=== PATIENT | male | born 1930 | race Hispanic/Latino ===

== ENCOUNTER 2017-06-13 14:19 | Inpatient (IN) | payer MEDICARE, MEDICAID ==
[2017-06-13] MEDS ORDERED: methylPREDNISolone Sod Succ/PF 125 MG/2 ML VIAL ONE (15:30)
[2017-06-13] MEDS ORDERED: Water For Inject, Bacteriostat 30 ML ONE (15:30)
[2017-06-13] MEDS ORDERED: Azithromycin 500 MG in Sodium Chloride 0.9% 250 ML 250 ML IVPB SCH (15:30)
[2017-06-13 16:14] LABS: Mean Corpuscular HGB CONC 31.1 g/dL (32.0-36.0); Mean Corpuscular Hemoglobin 27.4 pg (27.0-31.0); Mean Corpuscular Volume 88.1 fl (80.0-94.0); Mean Platelet Volume 7.7 fL (7.4-10.4); Platelet Count 326 thou/uL (130-400); RBC Distribution Width 15.1 % (11.5-14.5); Red Blood Cell (RBC) Count 2.21 mill/uL (4.70-6.10); White Blood Cell (WBC) Count 10.2 thou/uL (4.8-10.8)
[2017-06-13 16:16] LABS: INR-International Normal Ratio 1.3; Prothrombin Time 16.5 SEC (12.0-14.7)
[2017-06-13 16:33] LABS: #Lymphocytes 0.6 thou/uL (1.20-3.40); #Monocytes 0.6 thou/uL (0.11-0.59); #Neutrophils 8.9 thou/uL (1.40-6.50); %Basophils 0.1 % (0.0-1.0); %Eosinophils 0.1 % (0.0-10.0); %Monocytes 6.3 % (0.0-10.0); %Neutrophils 87.6 % (42.0-75.0); Anisocytosis SLIGHT = 6-15 cells (100X) (0-5/hpf); CKMB 5.2 ng/mL (0-6.6); Elliptocytes SLIGHT = 2-5 cells (100X) (0-1/hpf); MDiff Complete? YES; Ovalocytes SLIGHT = 2-5 cells (100X) (0-1/hpf); PLT Morphology Comment Appears Adequate; Polychromasia SLIGHT = 2-3 cells (100X) (0-2/hpf); Schistocytes SLIGHT = 2-5 cells (100X) (0-1/hpf); Target Cells SLIGHT = 2-5 cells (100X) (0-1/hpf)
[2017-06-13 16:43] LABS: ALT (SGPT) 26 U/L (8-55); AST (SGOT) 28 U/L (5-34); Alkaline Phosphatase 87 U/L (40-150); Anion Gap 21 mmol/L (10-20); BUN (Urea Nitrogen) 52 mg/dL (8.4-25.7); Bilirubin, Total 0.3 mg/dL (0.2-1.2); Calc. Creatinine Clearance 0 mL/min (70-130); Calcium 9.4 mg/dL (7.8-10.44); Carbon Dioxide 10 mmol/L (23-31); Chloride 112 mmol/L (98-107); Estimated GFR-MDRD 26; Glucose 132 mg/dL (83-110); Sodium 136 mmol/L (136-145); Troponin I 0.404 ng/mL (< 0.028)
[2017-06-13 16:44] LABS: Potassium 6.6 mmol/L (3.5-5.1)
--- NOTE | 2017-06-13 16:53 | RAD ---
EXAM: ONE VIEW CHEST 06/13/17 COMPARISON: 12/09/16. HISTORY: Dyspnea. FINDINGS: Increased opacity in the right hemithorax which obscures the right heart border and right hemidiaphra gm. Pleural and parenchymal changes suspected. There are parenchymal changes in the left lung base. T he heart is enlarged. Lungs are hyperinflated. No pneumothorax or osseous abnormality. IMPRESSION: Right greater than left opacities as defined above. Continued surveillance. POS: [facility]
[2017-06-13] MEDS ORDERED: Calcium Gluc 4.6 MEQ/10 ML (100 MG/ML) ONE (17:01)
[2017-06-13 19:12] LABS: Troponin I 0.515 ng/mL (< 0.028)
[2017-06-13] MEDS ORDERED: Ondansetron ODT 4 MG TAB SL PRN (19:12)
[2017-06-13] MEDS ORDERED: Ondansetron HCl/PF 4 MG/2 ML Vial IVP PRN (19:12)
[2017-06-13] MEDS ORDERED: Acetaminophen 325 MG TAB PO PRN (19:12)
[2017-06-13] MEDS ORDERED: Nitroglycerin 0.4 MG TAB (25 Tab Bottle) SL PRN (19:50)
[2017-06-13] MEDS ORDERED: Pantoprazole 40 MG VIAL IVP SCH (20:00)
[2017-06-13] MEDS: Furosemide 20 MG/2 ML VIAL SLOW IVP SCH (20:42)
[2017-06-13] MEDS: hydrALAZINE 25 MG TAB PO SCH (20:43)
[2017-06-13 21:00] LABS: Lactic Acid 3.8 mmol/L (0.5-2.2)
[2017-06-13 21:02] LABS: Anion Gap 18 mmol/L (10-20); BUN (Urea Nitrogen) 52 mg/dL (8.4-25.7); Calc. Creatinine Clearance 23 mL/min (70-130); Calcium 9.4 mg/dL (7.8-10.44); Carbon Dioxide 11 mmol/L (23-31); Chloride 113 mmol/L (98-107); Estimated GFR-MDRD 28; Glucose 161 mg/dL (83-110); Sodium 135 mmol/L (136-145)
[2017-06-13 21:05] LABS: Potassium 6.8 mmol/L (3.5-5.1)
[2017-06-13 21:17] LABS: Troponin I 0.858 ng/mL (< 0.028)
[2017-06-13] MEDS ORDERED: Calcium Chloride 1 GM/10 ML Abboject SYRINGE IVP SCH (21:30)
[2017-06-14] MEDS: Furosemide 20 MG/2 ML VIAL SLOW IVP SCH (01:00)
[2017-06-14 04:29] LABS: Hemoglobin 8.5 g/dL (14.0-18.0)
[2017-06-14 04:45] LABS: Anion Gap 15 mmol/L (10-20); BUN (Urea Nitrogen) 52 mg/dL (8.4-25.7); Calc. Creatinine Clearance 22 mL/min (70-130); Calcium 9.7 mg/dL (7.8-10.44); Carbon Dioxide 14 mmol/L (23-31); Chloride 113 mmol/L (98-107); Estimated GFR-MDRD 26; Glucose 179 mg/dL (83-110); Potassium 6.2 mmol/L (3.5-5.1); Sodium 136 mmol/L (136-145)
[2017-06-14 04:56] LABS: Troponin I 4.288 ng/mL (< 0.028)
--- NOTE | 2017-06-14 06:48 | HP ---
DATE OF ADMISSION: 06/13/2017 REASON/CHIEF COMPLAINT: Chest pain, shortness of breath. HISTORY OF PRESENT ILLNESS: Mr. Russell is an 87-year-old male with past medical history o f hypertension, hyperparathyroidism, bleeding, and also with chronic kidney disease, having shortness of breath, chest pain for the last 2 days. The patient describes the chest pain as pressure like in the retrosternal area, radiates to the left arm and associated with shortness of breath and he says both got worse today and he also has diaphoresis. He also had some cough and wheezing too. His also reported some fluid in both the lower extremities. He did not have nausea or vomiting but comp lains of neck pain. No headache or dizziness, so the patient was brought to the emergency room becau se of worsening symptoms. In the ER, the patient was evaluated and found to be severely anemic and w as also in acute kidney injury with severe hyperkalemia. The patient's troponin was elevated suggest emily of non-ST elevation and Radiology described this as effusion in the right lower lobe and pneumoni a is currently ruled out, so the patient received antibiotics, azithromycin and Rocephin and also rec eived Solu-Medrol and calcium gluconate solution as well and normal saline IV fluid bolus and DuoNebs , so the patient is being admitted to CCU in view of his multiple problems with severe hyperkalemia a s well as NSTEMI. PAST MEDICAL HISTORY: 1. Hypertension. 2. Hyperparathyroidism. 3. Reactive airway disease. 4. Peripheral vascular disease. 5. Bleeding duodenal ulcer. 6. Chronic kidney disease stage 3. 7. Chronic anemia. 8. Abdominal aortic aneurysm, stable. PAST SURGICAL HISTORY: Nothing significant. CURRENT MEDICATIONS: The patient is on simvastatin 40 mg, , hydralazine 25 b.i.d., Protonix 40 mg daily. ALLERGIES: NKDA. FAMILY HISTORY: Nothing of interest. SOCIAL HISTORY: The patient lives with family. He smokes 1 pack a day. No history of alcohol intak e. REVIEW OF SYSTEMS: Cardiovascular: Has chest pain and shortness of breath. Respiratory: Has cough , no fever. Gastrointestinal: No nausea or vomiting. No abdominal pain. Genitourinary: No dysuri a. Central Nervous System: No headache, no dizziness. PHYSICAL EXAMINATION: GENERAL: The patient is alert, awake, and oriented x3. VITAL SIGNS: Temperature 99, pulse 108, respirations 20, and blood pressure 140/60. HEENT: Head is normocephalic and atraumatic. Pupils are equal and reactive to light. Nasopharynx i s pale and dry. Hard and soft palate, no lesions. SKIN: Skin turgor decreased. NECK: Supple. No JVD. LUNGS: Rhonchi present bilaterally. HEART: S1 and S2 regular. ABDOMEN: Soft. No distention, no tenderness. Normal bowel sounds. RECTAL: Reveals no evidence of any heme-positive stool. CENTRAL NERVOUS SYSTEM: No focal deficits. EXTREMITIES: 1+ pitting edema. LABORATORY AND X-RAY FINDINGS: CBC shows WBC 10, hemoglobin 6, hematocrit 19, and platelets 326. Pr othrombin time 16, INR 1.3. Metabolic panel: Sodium 136, potassium 6.6, chloride 112, CO2 of 10, BU N 52, creatinine 2.3, glucose 132. Lactic acid 5.5. Troponin I 0.40. BNP was 605. EKG shows sinus tachycardia with heart rate 114. No acute ST-T wave changes seen. Chest x-ray shows right greater than left lobe opacities, possible pleural effusion and also cannot rule out any parenchymal changes. ASSESSMENT: 1. Chest pain, shortness of breath, possible [id number] elevation myocardial infarction with jayde vated troponin I. 2. Reactive airway disease. 3. Severe hyperkalemia. 4. Severe anemia, normocytic. 5. Acute kidney injury. 6. Hypertension. 7. Right pleural effusion, rule out pneumonia. 8. Chronic kidney disease stage 3. PLAN: 1. Vital signs q.4 hours. 2. Activity: As tolerated. 3. Allergies: NKDA. 4. Troponin I q.6 hours x2. 5. Nitroglycerin p.r.n. 6. Continue home medication. 7. Rocephin 2 grams IV piggyback daily. 8. Zithromax 250 mg IV piggyback daily. 9. Cardiology consult. 10. Transfuse 2 units of packed red blood cells. 11. DuoNebs q.i.d. 12. Solu-Medrol 20 IVP q.6 hours. 13. Pulmonary consult. 14. Echocardiogram.
[2017-06-14] MEDS: cefTRIAXone\\ROCEPHIN 2 GM in Sodium Chloride 0.9% 100 ML IVPB SCH (08:17)
[2017-06-14] MEDS: Pantoprazole 40 MG VIAL IVP SCH (08:17)
[2017-06-14] MEDS: hydrALAZINE 25 MG TAB PO SCH ×2 (08:17→21:36)
[2017-06-14 10:14] LABS: Troponin I 4.665 ng/mL (< 0.028)
--- NOTE | 2017-06-14 10:33 | CT ---
CT CHEST WITHOUT CONTRAST: Date: 06/14/17 HISTORY: Chest pain. Right lung mass versus effusion. COMPARISON: Radiograph from prior day. Radiograph from 12/07/16. FINDINGS: Large layering right-sided pleural effusion and compressive atelectasis in the right lung base. Moder ate size left layering pleural effusion. There is a focal area of nodularity in the parenchyma in the left lower lobe, series 61, image 104, measuring up to 9.0 mm. This is new from the prior examinatio n, slightly increasing in size. There are some scattered central lobular ground-glass opacities in th e upper lobes. Dense calcifications carotid arteries. Hypodensity posterior inferior right lobe of thyroid. Pulmonary trunk mildly dilated at 31 mm. Small volume pericardial fluid. Severe calcifications of the renal artery, celiac trunk, and superior mesenteric artery. Kidneys are atrophic. No thoracic spine compression fracture. There is extensive motion artifact at the level of the posterior right lobe of liver. There appears t o be calcification along the capsule, new. The sternum and manubrium are intact. Visualized portions of the clavicles are intact. IMPRESSION: 1. Large right and moderate size left layering pleural effusions. 2. Size increasing or new left lower lobe 9.0 mm nodule. This is seen on series 3, image 46 and 47. A follow-up CT in 1-2 months is recommended. Malignancy not included. 3. Mild edema. 4. Area of calcification along the right posterior hepatic capsule is new from the comparison examin ation and may represent an old torsed epiploic appendage, calcified. CODE LN. CODE T. POS: [facility]
[2017-06-14] MEDS: Azithromycin 250 MG in Sodium Chloride 0.9% 250 ML 250 ML IVPB SCH (14:08)
--- NOTE | 2017-06-14 14:57 | CON ---
DATE OF CONSULTATION: 06/14/2017 CONSULTING PHYSICIAN: Tian Ford M.D. REASON FOR CONSULTATION: Pleural effusion. HISTORY OF PRESENT ILLNESS: This patient is an 87-year-old male who was previously being seen by Dr. Hankins in our practice back in 11/2016. He came in last night with crushing substernal chest pain that he had been having for 2 days prior to admission. He says he was short of breath last night, but no longer this morning. He denies any right-sided chest pain. He was found to have a non-ST segment elevation CA. He also was severely hyperkalemic. He was given a dose of Kayexalate and x-ray showed what appeared to be a right effusion versus mass. Further evaluation by CT scan is pending. History is obtained from the family, the patient and by reviewing records in the chart. PAST MEDICAL HISTORY: 1. Hypertension. 2. Hyperparathyroidism. 3. Reactive airway disease. 4. Chronic renal insufficiency - one time was on dialysis. 5. Peripheral vascular disease. 6. Duodenal ulcer. 7. Anemia. 8. Abdominal aortic aneurysm. PAST SURGICAL HISTORY: Unremarkable. MEDICATIONS PRIOR TO ADMISSION: Aspirin 81 mg daily, multivitamin 1 daily, tramadol 50 mg daily, hydralazine 25 mg b.i.d., and simvastatin 40 mg daily. SOCIAL HISTORY: He smokes about a pack per day, does not consume alcohol, does not use illicit drugs. Lives at home with his family. FAMILY MEDICAL HISTORY: Noncontributory. ALLERGIES: None. REVIEW OF SYSTEMS: Twelve point review of systems otherwise negative except for the history of present illness. PHYSICAL EXAMINATION: VITAL SIGNS: Temperature 98.2, pulse 104, blood pressure 141/69, O2 sat 100%. GENERAL: He is awake and alert and in no acute distress. HEENT: Pupils tracts are icteric. Oropharynx clear. NECK: No adenopathy, no JVD. LUNGS: He has diminished percussion and diminished breath sounds in the right base, left side is clear. CARDIAC: S1, S2 regular, without murmur. ABDOMEN: Soft, nontender, nondistended. EXTREMITIES: No clubbing, cyanosis, or edema. NEUROMUSCULAR: Fully intact throughout. SKIN: Shows no rashes, bruising or jaundice. LABORATORY DATA AND X-RAY FINDINGS: White blood cell count 10.2, hemoglobin 8.5 , hematocrit 26.0, platelet count 326,000 and that was after 2 units of blood being transfused. INR 1.3. Sodium 136, potassium 6.2, chloride 113, CO2 of 14 , BUN 52, creatinine 2.4, glucose 179, troponin 4.2. X-ray was reviewed by myself in details and findings are as noted in history of present illness. ASSESSMENT: 1. Right effusion versus mass. 2. Non-ST segment elevation myocardial infarction. 3. Severe hyperkalemia. 4. Renal insufficiency. PLAN: 1. The patient is asymptomatic from the effusion versus mass. I will go ahead and get a noncontrasted CT of the chest to better delineate what we are seeing over there. He may need a thoracentesis. 2. Continue the antibiotics temporarily. 3. Recheck potassium this afternoon if I consider giving another dose of Kayexalate. 4. Suggest cardiac consultation as the heart issue seems to be most pressing issue at hand. 70 min. spent on patient at the bedside and or on the patient's floor [facility]
[2017-06-14 15:35] LABS: Potassium 5.5 mmol/L (3.5-5.1)
--- NOTE | 2017-06-14 20:14 | CON ---
DATE OF CONSULTATION: 06/14/2017 INDICATION FOR CONSULTATION: An 87-year-old patient with a history of severe shortness of breath and chest pain and abnormal cardiac enzymes, also abnormal EKG, suspicious for ischemia. HISTORY OF PRESENT ILLNESS: This is a very unfortunate 87-year-old gentleman. He has been complaini ng of shortness of breath for about 6 months. He says it worsened . He says he is unable to do anything from being short of breath and then developed chest discomfort. He has also been found to have severe anemia with a hemoglobin of 6, which after transfusion is now 8.5 and hematocrit is no w 26 and previous was 19.4. He has had a history of chronic kidney disease in the past. I believe yasmine william has had a short term dialysis back in 08/2016. Today, his creatinine is 2.36. His cardiac enzymes are abnormal with a troponin I which is increased from 0.51 to 0.8 to 4.2 to 4.66 with MB of 5.2. Yasmine william is comfortable at this time unless he moves. He also has some mild tachycardia at this time. His EKG originally when he came in showed significant EKG changes compatible with ischemia. Most likely the patient has underlying coronary artery disease. At this time, we will need to correct the anemia and see whether or not he has any GI bleeding. He has been seen by Dr. Amador in the past I believe . Otherwise, we cannot perform any type of invasive procedure and intervention on him until the hemo globin has stabilized and there is no obvious source of bleeding. He also has been found to have a l eft lower lobe nodule of 0.9 mm in diameter. He has been diagnosed also with pneumonia and on this a dmission, he is on antibiotics. He has bilateral pleural effusions. He did have an echocardiogram i n 10/2016, which showed a normal ejection fraction. He has had CT scans which showed abdominal aorti c aneurysm which is infrarenal, which apparently has been really stable. He has significant peripher al vascular disease and has multiple risk factors for having coronary artery disease. He has bilater al carotid bruits and also has decreased pedal and popliteal pulses. I cannot actually palpate pedal pulses, but he has significant peripheral vascular disease and I would not be surprised if he does n ot have underlying significant coronary artery disease. PAST MEDICAL HISTORY: Significant for a left femoral neck fracture and the last was in 2017. He has diverticulosis, peptic ulcer disease, infrarenal abdominal aortic aneurysm. He has hyperparathyroid ism. He has had a history of pneumonia. He has diffuse peripheral vascular disease also affecting t he renal arteries. SOCIAL HISTORY: He is . He continues to smoke. He says he only smokes about a half of cigar ette a day now, has smoked up to a pack a day. FAMILY HISTORY: Noncontributory. ALLERGIES: None. MEDICATIONS: At home include tramadol, hydralazine, simvastatin, and aspirin. At this time, he has been placed on antibiotics for probable pneumonia. He also was taking Lasix and hydralazine. He has been placed on methylprednisolone. He has nitroglycerin as needed, Protonix. ALLERGIES: None. REVIEW OF SYSTEMS: He complains of shortness of breath and chest pain and also constipation. Otherw ise, 12-point review of systems is relatively unremarkable despite being 87 years old. PHYSICAL EXAMINATION: GENERAL: Reveals an elderly gentleman. VITAL SIGNS: Blood pressure is 138/51, heart rate 115 and shows a sinus tachycardia, respiratory rat e 24, O2 saturations 100% on room air at this time. HEENT: Shows the head to be normocephalic and atraumatic. He has bilateral carotid bruits noted. CHEST: Has decreased breath sounds at the bases and otherwise is unremarkable. I do not hear any ra les, rhonchi, or wheezing. CARDIOVASCULAR: Exam reveals a slight tachycardia with a regular rhythm. He has a very soft systoli c murmur in the aortic area, also at the apex, but no significant harsh murmurs were noted. There we re no heaves or thrills. ABDOMEN: Somewhat distended, but no significant tenderness. He has positive bowel sounds. EXTREMITIES: Showed no clubbing or cyanosis. He had mild ankle edema. I cannot palpate pedal or po pliteal pulses. I could palpate the femoral pulse. He also has bilateral femoral bruits. NEUROLOGIC: Appears to be intact. EKG shows sinus tachycardia with ST segment changes compatible with ischemia. IMPRESSION: 1. Severe anemia which has exacerbated underlying probable coronary artery disease with ischemic maria elena nges. Cardiac enzymes were positive for a non-ST segment elevation myocardial infarction. Once the patient's anemia has resolved and he is more stable, he should undergo a cardiac catheterization to e valuate his coronary artery status. First he will need to be evaluated to determine the blood loss. 2. Chronic kidney disease. Also, he needs to understand that should we proceed with cardiac cathete rization, he may develop complete renal failure requiring dialysis. 3. History of hypertension. This appears to be stable at this time. 4. Abdominal aortic aneurysm. This appears to be stable. He denies any pain. He may need to under go a repeat CT scan for further evaluation to follow up on the abdominal aortic aneurysm. 5. History of chronic obstructive pulmonary disease which appears to be relatively stable despite hi s continued smoking. 6. Hyperparathyroidism. We will leave this up to the discretion of the primary care physicians. At this time, his overall health is obviously very poor with multiple medical problems. The worse prob maggi at this time is the anemia of uncertain etiology. He has had a history of peptic ulcer disease a nd gastric ulcers in the past and we will need to follow him very carefully. 7. Pneumonia and bilateral pleural effusions. We will continue to monitor and treat with antibiotic s. He may need further blood transfusions. He is not a candidate for cardiac catheterization with t his significantly low hemoglobin. We would prefer for hemoglobin to be at least 10 and also prefer f or the renal function to have improved. 8. Hyperkalemia. He was hyperkalemic when he was admitted with 6.2. This is now down to 5.5. We will be more than happy to continue to follow the patient with you. Further workup is certainly i ndicated. We would be more than happy to perform these studies once the patient becomes more stable.
--- NOTE | 2017-06-14 21:28 | CON ---
DATE OF CONSULTATION: 06/14/2017 CONSULTING PHYSICIAN: Tian Ford M.D. REASON FOR CONSULTATION: Acute kidney injury. REASON FOR ADMISSION: Chest pain and shortness of breath. HISTORY OF PRESENT ILLNESS: This 87-year-old male with history of hypertension, reactive airway dise ase, CKD, who came to the hospital with shortness of breath and chest pain. Nephrology was consulted for acute kidney injury. The patient was found to have a creatinine of 2.3 and potassium of 6.8. T he patient is currently treated for cardiorenal syndrome. No fever or chills. No chest pain reporte d to me. No shortness of breath. He is feeling better. PAST MEDICAL HISTORY: Positive for hypertension, reactive airway disease, GI bleed, CKD, chronic ane taqueria, abdominal aortic aneurysm. PAST SURGICAL HISTORY: Denies. ALLERGIES: No known drug allergies. HOME MEDICATIONS: Hydralazine, simvastatin, Protonix. FAMILY HISTORY: No history of any kidney disease. SOCIAL HISTORY: Smokes 1 pack per day and no alcohol intake. REVIEW OF SYSTEMS: The following complete review of systems was negative, unless otherwise mentioned in the HPI or below: Constitutional: Weight loss or gain, ability to conduct usual activities. Skin: Rash, itching. Eyes: Double vision, pain. ENT/Mouth: Nose bleeding, neck stiffness, pain, tenderness. Cardiovascular: Palpitations, dyspnea on exertion, orthopnea. Respiratory: Shortness of breath, wheezing, cough, hemoptysis, fever, or night sweats. Gastrointestinal: Poor appetite, abdominal pain, heartburn, nausea, vomiting, constipation, or diarr hea. Genitourinary: Urgency, frequency, dysuria, nocturia. Musculoskeletal: Pain, swelling. Neurologic/Psychiatric: Anxiety, depression. Allergy/Immunologic: Skin rash, bleeding tendency. PHYSICAL EXAMINATION: GENERAL: Elderly male, in no apparent distress. VITAL SIGNS: Temperature 97.9, pulse 109, respiratory rate 18, blood pressure 113/50. HEENT: Atraumatic, normocephalic. Oral mucosa is moist. NECK: Supple, no masses. CARDIOVASCULAR: S1, S2 heard. Rate and rhythm regular. RESPIRATORY: Clear to auscultation. MUSCULOSKELETAL: 1+ edema. DERMATOLOGIC: No skin rash. NEUROLOGIC: Alert and awake. PSYCHIATRIC: Mood and affect normal. LABORATORY DATA: Hemoglobin is 6.0, potassium was 6.8, now is 5.5, creatinine is 2.3. ASSESSMENT AND PLAN: 1. Acute kidney injury, most likely from bleeding and volume depletion. Agree with current manageme nt, avoid nephrotoxins. 2. Hyperkalemia, most likely from bleeding and will limit potassium from the diet. Potassium is get ting better. 3. Acidosis. Continue supportive care. 4. Edema, controlled. 5. Cardiorenal syndrome, slightly elevated troponin. 6. Anemia. Prognosis is guarded. Renal function is stable. Potassium is getting better. Continue close monito ring and avoid nephrotoxins.
[2017-06-15 03:53] LABS: #Lymphocytes 0.4 thou/uL (1.20-3.40); #Monocytes 0.4 thou/uL (0.11-0.59); #Neutrophils 8.8 thou/uL (1.40-6.50); %Eosinophils 0.1 % (0.0-10.0); %Lymphocytes 4.1 % (21.0-51.0); %Monocytes 4.3 % (0.0-10.0); %Neutrophils 91.5 % (42.0-75.0); Hemoglobin 7.9 g/dL (14.0-18.0); Mean Corpuscular HGB CONC 32.7 g/dL (32.0-36.0); Mean Corpuscular Hemoglobin 28.1 pg (27.0-31.0); Mean Platelet Volume 7.8 fL (7.4-10.4); Platelet Count 242 thou/uL (130-400); White Blood Cell (WBC) Count 9.6 thou/uL (4.8-10.8)
[2017-06-15 04:09] LABS: Anion Gap 12 mmol/L (10-20); BUN (Urea Nitrogen) 63 mg/dL (8.4-25.7); Calc. Creatinine Clearance 22 mL/min (70-130); Calcium 9.6 mg/dL (7.8-10.44); Carbon Dioxide 17 mmol/L (23-31); Chloride 115 mmol/L (98-107); Estimated GFR-MDRD 26; Glucose 148 mg/dL (83-110); Potassium 5.1 mmol/L (3.5-5.1); Sodium 139 mmol/L (136-145)
[2017-06-15] MEDS: cefTRIAXone\\ROCEPHIN 2 GM in Sodium Chloride 0.9% 100 ML IVPB SCH (08:28)
[2017-06-15] MEDS: Pantoprazole 40 MG VIAL IVP SCH (08:29)
[2017-06-15] MEDS: hydrALAZINE 25 MG TAB PO SCH ×2 (08:29→20:32)
--- NOTE | 2017-06-15 08:41 | PRG ---
DATE OF SERVICE: 06/15/2017 This morning his sats are 100% on 2 liters, pulse 113, blood pressure 140/73, respirations 24. His ejection fraction is 20-25% on the echocardiogram. He presented with chest pain, but he said he is feeling better, less short of breath. CHEST: Decreased breath sounds bilaterally, right greater than left. CARDIAC: Normal S1-S2. No gallops. LABORATORY: White count 9000, H&H 7 and 24, platelet count 242, creatinine is 2.3, BUN 63, troponin is 4. IMPRESSION: 1. Myocardial infarction. 2. Bilateral pleural effusions, left greater than right. 3. Former smoker. Pleural effusion appears to be relatively asymptomatic at this time. Avoid any thoracentesis. If he gets symptomatically we will tap him, in the meantime, continue card iac care and deescalate antibiotics. He can probably be transferred out of the ICU when okay with Cardiology. I will follow.
--- NOTE | 2017-06-15 10:21 | PRG ---
DATE OF SERVICE: 06/15/2017 SUBJECTIVE: This is an 87-year-old gentleman being seen for acute kidney injury. The patient denies any nausea, vomiting or chest pain. PHYSICAL EXAMINATION: GENERAL: Patient is awake, alert. VITAL SIGNS: Afebrile, pulse 70, breathing at 16, blood pressure 136/70. OBJECTIVE: See above. Awake, alert, in no acute distress. GENERAL APPEARANCE AND MENTAL STATUS: Fair. HEAD/NECK: Normocephalic. Atraumatic. EYES: EOMI. No deformity. EARS: Clear. No ulcers. NOSE: Intact. No lesions. MOUTH: Clear. No discharge. THROAT: Clear. No exudate. LUNGS: Clear. No crackles. CARDIAC: S1, S2. No rub. ABDOMEN: Benign. BS+. GENITALIA/RECTUM: Yee absent. BACK/EXTREMITIES: Edema 0+ Ulcer- NEUROLOGICAL: Alert and motor intact. SKIN: Rash- Bruise- LYMPHATICS: Edema- Ulcer- LABORATORY: Hemoglobin 7.9. Potassium 5.1. ASSESSMENT AND RECOMMENDATIONS: 1. Acute kidney injury with chronic kidney disease, improved. 2. Hypertension, stable. 3. Anemia, stable. 4. Medications based on GFR are appropriate. 5. Metabolic acidosis. Would recommend sodium bicarbonate. 6. Hyperkalemia, resolved.
[2017-06-15 12:01] LABS: Iron Less than 8 ug/dL (65-175); Iron Binding Capacity, Total 423 mcg/dL (261-462)
--- NOTE | 2017-06-15 12:18 | CON ---
DATE OF CONSULTATION: 06/15/2017 CHIEF COMPLAINT: Shortness of breath and chest pain. HISTORY OF PRESENT ILLNESS: Mr. Russell is an 87-year-old man who was admitted on 06/13/2017 with s hortness of breath and chest pain. He was diagnosed with a non-ST elevation [place]. He was found to hav e severe anemia and GI was consulted to evaluate that. [facility] Follow [facility] EGD in 11/2016 showed this to be healed. He has been followed by Dr. Perry draper. Currently, he has no ongoing chest pain, no shortness of breath at rest. However, his hea rt rate increases and he breathes a lot harder when he has to move around in bed. He has no abdomina l pain. He has had no blood in the stool. PAST MEDICAL HISTORY: Hypertension, hyperparathyroidism, chronic kidney disease. He has received di alysis previously, but is not on scheduled dialysis, reactive airway disease, peripheral vascular dis ease, abdominal aortic aneurysm, duodenal ulcer as stated in the history of present illness. PAST SURGICAL HISTORY: Endoscopy in August and November of 2016. FAMILY HISTORY: Negative for GI malignancies. SOCIAL HISTORY: No alcohol or drugs. He has been a pack a day smoker. ALLERGIES: No known drug allergies. OUTPATIENT MEDICATIONS: Include pantoprazole 40 mg daily, simvastatin, hydralazine, aspirin, multipl e vitamin, and tramadol as needed. REVIEW OF SYSTEMS: Negative x10 systems reviewed except as stated in the history of present illness. PHYSICAL EXAMINATION: VITAL SIGNS: Pulse 108, blood pressure 135/63, temperature 97.8. When I had him roll over on the si de he was breathing harder and his pulse went up in the 120s. GENERAL: He is in no acute distress. He is awake and alert. EYES: Eyes have no scleral icterus. OROPHARYNX: Clear, without lesions. NECK: No cervical or supraclavicular lymphadenopathy. LUNGS: Have expiratory wheezes. HEART: Tachycardic, S1, S2. ABDOMEN: Soft, nontender, nondistended. Bowel sounds are present. EXTREMITIES: No lower extremity edema. RECTAL: Reveals light brown stool in the rectal vault. LABORATORY AND X-RAY FINDINGS: He had a hemoglobin of 6.0 on presentation and received 2 units trans fusion, his hemoglobin has improved to 7.9 after that. White blood cell count 9.6, platelets 242. L ast hemoglobin in November was 9.3. INR 1.3. Creatinine 2.37. Troponin 4.6. His bilirubin was 0.3, AST 28, ALT 26, alkaline phosphatase 87 on pr esentation. BNP was 1600, albumin 4.0. IMPRESSION: 1. Severe anemia presenting with a hemoglobin of 6. He has had no overt bleeding recently. He has light brown stool in the rectal vault by rectal exam now. He has had chronic renal disease. His ane taqueria is likely multifactorial. We will check iron studies to evaluate for signs of chronic iron defic iency. He did have a duodenal ulcer last August, which were shown to have healed by November. He has bee n taking a proton pump inhibitor daily. The compliance of this in the past has been questioned. The re are no signs of overt bleeding now. Colonoscopy was offered to the patient by Dr. Amador last Nov and he and his declined. 2. Kth-PD-ibvvrwl elevation myocardial infarction. 3. Tachycardia and shortness of breath when he just moves around in the bed. RECOMMENDATIONS: 1. Continue proton pump inhibitor. 2. Check iron studies. 3. We will continue to follow.
[2017-06-15] MEDS: Azithromycin 250 MG in Sodium Chloride 0.9% 250 ML 250 ML IVPB SCH (15:39)
[2017-06-15] MEDS ORDERED: Aspirin 81 mg Enteric Coated Tablet PO SCH (16:15)
[2017-06-15] MEDS ORDERED: Carvedilol 3.125 MG TAB PO SCH (21:30)
[2017-06-16 05:05] LABS: Anion Gap 13 mmol/L (10-20); BUN (Urea Nitrogen) 71 mg/dL (8.4-25.7); Calc. Creatinine Clearance 26 mL/min (70-130); Calcium 9.3 mg/dL (7.8-10.44); Carbon Dioxide 17 mmol/L (23-31); Chloride 115 mmol/L (98-107); Estimated GFR-MDRD 32; Glucose 145 mg/dL (83-110); Potassium 4.7 mmol/L (3.5-5.1); Sodium 140 mmol/L (136-145)
--- NOTE | 2017-06-16 08:18 | PDOC.CTH ---
<Elizabet Ordoñez - Last Filed: 06/16/17 08:12> Cardiology Progress Note - Subjective The pt seen and examined. No overnight events. No cardiac complaints. The pt reported that he breaths "ok" today - Objective Vital Signs Temp Pulse Resp BP Pulse Ox 06/16/17 07:59 99 23 H 100 06/16/17 04:00 98.7 F 06/16/17 00:00 98.1 F 06/15/17 20:32 120 H 169/69 H Weight 151 lb 14.376 oz 06/15/17 06/16/17 06/17/17 06:59 06:59 06:59 Intake Total 800 1710 Output Total 1325 1150 Balance -525 560 - Physical Examination General/Neuro: alert & oriented x3 Neck: no JVD present Lungs: other: (very coases and diminished at bases) Heart: RRR Abdomen: soft Extremities: other: (1-2+ pitting edema to Lt ankle) - Telemetry Telemetry Rhythm: SR 90s - Labs Result Diagrams: 06/15/17 03:13 06/16/17 03:07 Troponin/CKMB CK-MB (CK-2) 5.2 ng/mL (0-6.6) 06/13/17 15:35 Troponin I 4.665 ng/mL (< 0.028) H* 06/14/17 09:15 - Assessment/Plan 1. NSTEMI - stable with BBlocker; no ASA due to GI bleed; possible Cardiac cath when the pt's condition become stable 2. HTN - stable with current medication; cont. monitor 3. MADY on CKD - slightly improved today; managed by bulbs farmworker 4. Anemia - Hx of duodenal ulcer in the past; cont. monitor; 5. AAA - cont. monitor any symptoms; Possible CT ABD in future for further eval 6. PNA & Bilat Pleural effusion - on Antibiotic IVs; managed by PCP and separating machine operator 7. Hyperlipidemia - will resume statin when the pt's condition become stable 8. PVD - stable; cont. monitor MAR reviewed Review of Systems - Review of Systems Constitutional: reports: no symptoms reported EENTM: reports: no symptoms reported Respiratory: reports: see HPI Cardiac (ROS): reports: no symptoms reported ABD/GI: reports: no symptoms reported : reports: no symptoms reported Musculoskeletal: reports: no symptoms reported <Cynthia Dickerson - Last Filed: 06/16/17 17:31> Cardiology Progress Note - Objective Vital Signs Temp Pulse Resp BP Pulse Ox 06/16/17 15:39 98.3 F 100 20 148/67 H 90 L 06/16/17 14:02 94 20 06/16/17 12:00 96 06/16/17 11:38 97.8 F 100 18 151/72 H 92 L 06/16/17 08:44 99 06/16/17 08:00 97.5 F L 99 19 100 06/16/17 07:59 99 23 H 100 Weight 151 lb 14.376 oz 06/15/17 06/16/17 06/17/17 06:59 06:59 06:59 Intake Total 800 1710 790 Output Total 1325 1150 410 Balance -525 560 380 - Labs Result Diagrams: 06/15/17 03:13 06/16/17 03:07 Troponin/CKMB CK-MB (CK-2) 5.2 ng/mL (0-6.6) 06/13/17 15:35 Troponin I 4.665 ng/mL (< 0.028) H* 06/14/17 09:15 - Assessment/Plan Pt. seen and eval. by me. I agree with the A/P by the BUSINESS SERVICES OFFICER. He may not agree to the cath even if he becomes more stable. hgb. will need to be > 10 and stable . The renal function will also need to be discussed as he could have renal failure from the contrast and dialysis would be nec. We will continue to follow him.
[2017-06-16] MEDS: cefTRIAXone\\ROCEPHIN 2 GM in Sodium Chloride 0.9% 100 ML IVPB SCH (08:44)
[2017-06-16] MEDS: Pantoprazole 40 MG VIAL IVP SCH (08:44)
[2017-06-16] MEDS: Carvedilol 3.125 MG TAB PO SCH ×2 (08:44→21:11)
[2017-06-16] MEDS: hydrALAZINE 25 MG TAB PO SCH ×2 (08:44→21:10)
[2017-06-16] MEDS ORDERED: Diazepam 5 MG TAB PO PRN (09:23)
[2017-06-16] MEDS ORDERED: Thiamine HCl 200 MG/2 ML VIAL IM SCH (09:30)
[2017-06-16] MEDS ORDERED: Diazepam 5 MG TAB PO SCH (09:30)
--- NOTE | 2017-06-16 09:48 | PRG ---
DATE OF SERVICE: 06/16/2017 SUBJECTIVE: This morning, he is eating breakfast, sitting at the bedside in bed, in no distress. OBJECTIVE: VITAL SIGNS: Blood pressure is 163/87, sats are 100% on 2 liters, respiration 20, pulse 99, afebrile . CHEST: Reveals bilateral rhonchi. CARDIAC: Normal S1, S2. No gallops. ABDOMEN: Soft, no masses. LABORATORY DATA: White count is not obtained. BUN and creatinine are elevated at 71 and 2.0. Gram positive cocci and his blood cultures, await final identification. IMPRESSION: Congestive heart failure, pleural effusion, renal failure, chronic obstructive pulmonary disease. PLAN: Continue neb treatments, supportive care. He can be transferred out of the ICU. Consider thoracentesis if effusion looks larger.
--- NOTE | 2017-06-16 11:08 | PRG ---
DATE OF SERVICE: 06/16/2017 SUBJECTIVE: This is an 87-year-old gentleman being seen for acute kidney injury. The patient denies any nausea, vomiting or chest pain. PHYSICAL EXAMINATION: GENERAL: Patient is awake, alert. VITAL SIGNS: Afebrile, pulse 100, breathing at 16, blood pressure 160/82. HEAD/NECK: Normocephalic. Atraumatic. EYES: EOMI. No deformity. EARS: Clear. No ulcers. NOSE: Intact. No lesions. MOUTH: Clear. No discharge. THROAT: Clear. No exudate. LUNGS: Clear. No crackles. CARDIAC: S1, S2. No rub. ABDOMEN: Benign. BS+. GENITALIA/RECTUM: Yee absent. BACK/EXTREMITIES: Edema 0+ Ulcer- NEUROLOGICAL: Alert and motor intact. SKIN: Rash- Bruise- LYMPHATICS: Edema- Ulcer- LABORATORY DATA: Show hemoglobin 7.9, potassium is 4.2. ASSESSMENT AND RECOMMENDATIONS: 1. Hyperkalemia, improved. 2. Metabolic acidosis. Continue sodium bicarbonate 3. Hypertension, stable. 4. Acute kidney injury, stable. 5. Chronic kidney disease, no indication for dialysis. Patient with chronic kidney disease stage 3.
[2017-06-16] MEDS: Azithromycin 250 MG in Sodium Chloride 0.9% 250 ML 250 ML IVPB SCH (15:33)
--- NOTE | 2017-06-17 02:06 | PRG ---
DATE OF SERVICE: 06/16/2017 SUBJECTIVE: Mr. Schultz is without complaints except for he gets very short of breath with any move ment at all. In talking with the nurses, his oxygen saturation is up to 93 earlier today. They did put him on 2 liters of oxygen, came up to 90-91 and they took it off and he stayed right around 90. OBJECTIVE: VITAL SIGNS: Temperature is 98.3, pulse is 100, blood pressure 148/76. LUNGS: Decreased breath sounds at bases bilaterally with no breath sounds left lower half lung. He gets short of breath just trying to get him to sit up. HEART: Regular rhythm. ABDOMEN: Soft and nontender. IMAGING: CT scan of the chest from 06/14/2017 showed a large right and moderate left-sided effusion. He has a 9 mm nodule in the left lower lung, which is new compared to previous imaging 11/2012. Ca lcification in the right posterior hepatic cast was new from the previous examination. LABORATORY STUDIES: None today, hemoglobin was 7.8 yesterday. Chemistry revealed a BUN of 71 today and a creatinine of 2.01, 63 and 2.37 yesterday, 52 and 2.36 on 06/14/2017. Last hemoglobin at this hospital was 9.3 on 12/09/2016. ASSESSMENT: 1. Severe anemia, microcytic with iron less than 8 on presentation, a ferritin of 13 and received 2 units of blood on 06/13/2017. He has had 2 EGDs last year when he had an ulcer and then a followup E GD for documentation of healing of that ulcer. Family refused colonoscopy at that time for screening purposes. 2. Heart failure with ejection fraction around 30%. 3. Two large pleural effusions, 1 on the left and 1 on the right with significant respiratory embarr assment. He has distinct shortness of breath with any movement. With movement in the room, he dropp ed his pulse ox to 83%, required supplemental O2. RECOMMENDATIONS: I will probably transfuse him with another unit of blood if his hemoglobin truly is staying between 7 and 8 and try to diurese him aggressively to see if we can get his respiratory sta tus better. At this current juncture, he is not a candidate for sedation and endoscopy. He is a too high risk. He has no signs of active hemorrhage as he had a brown stool on rectal exam yesterday. I agree that ideally a colonoscopy would be indicated to assess the reason for this patient's iron-de ficiency anemia, but again, I think he is going to need to have an improvement in his cardiopulmonary status before we can do that. If he shows signs of acute hemorrhage, he would have to be intubated for any type of intervention at this time and in light of his recent non-ST elevation OR, I will work on improving his cardiovascular status before any type of intervention.
[2017-06-17] MEDS ORDERED: Diazepam 5 MG TAB PO PRN (04:00)
[2017-06-17 06:08] LABS: #Lymphocytes 0.7 thou/uL (1.20-3.40); #Monocytes 0.5 thou/uL (0.11-0.59); #Neutrophils 9.3 thou/uL (1.40-6.50); %Eosinophils 0.1 % (0.0-10.0); %Lymphocytes 6.9 % (21.0-51.0); %Monocytes 4.6 % (0.0-10.0); %Neutrophils 88.5 % (42.0-75.0); Hemoglobin 8.4 g/dL (14.0-18.0); Mean Corpuscular HGB CONC 31.7 g/dL (32.0-36.0); Mean Corpuscular Hemoglobin 27.8 pg (27.0-31.0); Mean Corpuscular Volume 87.7 fl (80.0-94.0); Platelet Count 237 thou/uL (130-400); RBC Distribution Width 14.5 % (11.5-14.5); Red Blood Cell (RBC) Count 3.01 mill/uL (4.70-6.10); White Blood Cell (WBC) Count 10.5 thou/uL (4.8-10.8)
[2017-06-17 06:14] LABS: Anion Gap 13 mmol/L (10-20); BUN (Urea Nitrogen) 73 mg/dL (8.4-25.7); Calc. Creatinine Clearance 27 mL/min (70-130); Calcium 9.4 mg/dL (7.8-10.44); Carbon Dioxide 16 mmol/L (23-31); Chloride 116 mmol/L (98-107); Estimated GFR-MDRD 34; Glucose 144 mg/dL (83-110); Potassium 5.1 mmol/L (3.5-5.1); Sodium 140 mmol/L (136-145)
--- NOTE | 2017-06-17 07:36 | RAD ---
CHEST ONE VIEW: History: CHF. Follow up. Comparison: 06-13-17 FINDINGS: Cardiac silhouette remains magnified, enlarged and now more obscured by increasing bilateral pleural fluid, right greater than left. Pulmonary vasculature is more engorged. Mediastinum remains midline. No evidence of pneumothorax. lunchroom monitor leads overlie the chest. IMPRESSION: Worsening pulmonary edema and bilateral pleural fluid, right greater than left. POS: [facility]
--- NOTE | 2017-06-17 08:05 | PDOC.CTH ---
<Elizabet Ordoñez - Last Filed: 06/17/17 08:06> Cardiology Progress Note - Subjective The pt seen and examined. No overnight events. No cardiac complaints. He is on 2LNC with no distress. He could finish his breakfast any difficulties, per the pt. - Objective Vital Signs Temp Pulse Resp BP BP Pulse Ox 06/17/17 07:10 97.7 F 94 18 171/78 H 97 06/17/17 04:55 97.8 F 94 22 H 163/91 H 98 06/16/17 21:10 101 H 161/76 H Weight 166 lb 14.4 oz 06/16/17 06/17/17 06/18/17 06:59 06:59 06:59 Intake Total 1710 1935 Output Total 1150 1260 Balance 560 675 - Physical Examination General/Neuro: alert & oriented x3 Neck: no JVD present Lungs: other: (exp. wheezing, very coarses, diminished at bases) Heart: RRR Abdomen: soft Extremities: other: (No edema) - Telemetry Telemetry Rhythm: SR 90s - Labs Result Diagrams: 06/17/17 04:23 06/17/17 04:23 Troponin/CKMB CK-MB (CK-2) 5.2 ng/mL (0-6.6) 06/13/17 15:35 Troponin I 4.665 ng/mL (< 0.028) H* 06/14/17 09:15 - Assessment/Plan 1. NSTEMI - stable with BBlocker; no ASA due to possible GI bleed; possible Cardiac cath when the pt's condition become stable with Hgb > 10 and good renal function. 2. HTN - Increase Coreg from 3.125mg to 6.25mg BID; cont. monitor 3. MADY on CKD - slightly improved today than yesterday; managed by special education professor 4. Anemia - Hx of duodenal ulcer in the past; cont. monitor; 5. AAA - cont. monitor any symptoms; Possible CT ABD in future for further eval 6. PNA & Bilat Pleural effusion - on Antibiotic IVs; managed by PCP and interface control officer 7. Hyperlipidemia - will resume Zocor 40mg from tonight 8. PVD - stable; cont. monitor MAR reviewed Review of Systems - Review of Systems Constitutional: reports: no symptoms reported EENTM: reports: no symptoms reported Respiratory: reports: see HPI Cardiac (ROS): reports: no symptoms reported ABD/GI: reports: no symptoms reported : reports: no symptoms reported Musculoskeletal: reports: no symptoms reported <Cynthia Dickerson - Last Filed: 06/17/17 18:53> Cardiology Progress Note - Objective Vital Signs Temp Pulse Pulse Pulse Pulse Resp BP 06/17/17 18:44 98 F 88 16 06/17/17 18:22 89 16 06/17/17 17:34 155/70 H 06/17/17 15:20 97.6 F 87 18 06/17/17 15:03 90 16 06/17/17 11:22 95 18 06/17/17 11:10 97.8 F 98 18 06/17/17 10:05 90 105 H 06/17/17 09:28 89 171/78 H 06/17/17 09:27 171/78 H 06/17/17 08:07 06/17/17 08:05 89 16 06/17/17 08:00 97.7 F 89 16 06/17/17 07:10 97.7 F 94 18 BP BP BP BP Pulse Ox Pulse Ox Pulse Ox 06/17/17 18:44 144/63 H 06/17/17 18:22 93 L 06/17/17 17:34 06/17/17 15:20 155/70 H 95 06/17/17 15:03 93 L 06/17/17 11:22 92 L 06/17/17 11:10 174/81 H 93 L 06/17/17 10:05 158/76 H 176/89 H 95 91 L 06/17/17 09:28 06/17/17 09:27 06/17/17 08:07 99 06/17/17 08:05 99 06/17/17 08:00 06/17/17 07:10 171/78 H 97 Weight 166 lb 14.4 oz 06/16/17 06/17/17 06/18/17 06:59 06:59 06:59 Intake Total 1710 1935 1400 Output Total 1150 1260 350 Balance 328 988 9942 - Labs Result Diagrams: 06/17/17 04:23 06/17/17 04:23 Troponin/CKMB CK-MB (CK-2) 5.2 ng/mL (0-6.6) 06/13/17 15:35 Troponin I 4.665 ng/mL (< 0.028) H* 06/14/17 09:15 - Assessment/Plan Pt. seen and eval. by me. I agree with the A/P by the TRIAL MANAGER. Overall he looks a little better. When stable I would suggest a cardiac cath. he will likely need GI endoscopy when more stable.
[2017-06-17] MEDS ORDERED: Magnesium Oxide 400 MG TAB PO SCH (09:00)
[2017-06-17] MEDS ORDERED: Multivitamin W/ Minerals 1 TAB PO SCH (09:00)
[2017-06-17] MEDS ORDERED: Folic Acid 1 MG TAB PO SCH (09:00)
[2017-06-17] MEDS ORDERED: Carvedilol 6.25 MG TAB PO SCH (09:00)
[2017-06-17] MEDS: Carvedilol 6.25 MG TAB PO SCH ×2 (09:27→17:34)
[2017-06-17] MEDS: cefTRIAXone\\ROCEPHIN 2 GM in Sodium Chloride 0.9% 100 ML IVPB SCH (09:27)
[2017-06-17] MEDS: Pantoprazole 40 MG VIAL IVP SCH (09:28)
[2017-06-17] MEDS: hydrALAZINE 25 MG TAB PO SCH ×2 (09:28→20:50)
--- NOTE | 2017-06-17 09:43 | PQF ---
CLINICAL DOCUMENTATION IMPROVEMENT CLARIFICATION FORM: ICD-10 Updated PLEASE DO AN ADDENDUM TO THE PROGRESS NOTE WITH ANY DOCUMENTATION UPDATES OR ADDITIONS AND CARRY THROUGH TO DC SUMMARY. THANK YOU. DATE: 06/17 ATTN: DR. Kip JEWELL Please exercise your independent, professional judgment in responding to the clarification form. Clinical indicators are provided on the bottom of this form for your review. Please check appropriate box(s): [ ] Pneumonia secondary to (specify organism / underlying disease) [ ] Simple Pneumonia (community acquired - nosocomial) [ ] Bronchopneumonia [ ] Pneumonia of unknown etiology [ ] Other diagnosis [ ] Unable to determine [ y ] PNEUMONIA RULED/OUT [ ] PNEUMONIA RESOLVED For continuity of documentation, please document condition throughout progress notes and discharge summary. Thank You. CLINICAL INDICATORS - SIGNS / SYMPTOMS / LABS ER PHYSICIAN DIAGNOSIS DOCUMENTATION 06/13: PNEUMONIA PHYSICIAN H&P DOCUMENTATION 06/13: ASSESSMENT: 7. R PLEURAL EFFUSION, R/O PNEUMONIA CARDIOLOGY CONSULT DOCUMENTATION 06/14: ASSESSMENT: 7. PNEUMONIA & B PLEURAL EFFUSION RISK FACTORS: CURRENT SMOKER COPD, REACTIVE AIRWAY DISEASE SHORTNESS OF BREATH TREATMENTS: IV ANTIBIOTICS (ROCEPHIN & AZITHROMYCIN 06/13 - PRESENT) PULMONOLOGY CONSULT SUPPLEMENTAL 02(06/13 - PRESENT) DUONEBS (06/13 - PRESENT) THANK YOU! Hanh (This form is maintained as a part of the permanent medical record) 2014 [employer]. All Rights Reserved Hanh Bains RN, BSN [email or web address] Office: [phone] [facility]
--- NOTE | 2017-06-17 09:58 | PQF ---
CLINICAL DOCUMENTATION IMPROVEMENT CLARIFICATION FORM: ICD-10 Updated PLEASE DO AN ADDENDUM TO THE PROGRESS NOTE WITH ANY DOCUMENTATION UPDATES OR ADDITIONS AND CARRY THROUGH TO DC SUMMARY. THANK YOU. DATE: 06/17 ATTN: DR. Kip JEWELL Please exercise your independent, professional judgment in responding to the clarification form. Clinical indicators are provided on the bottom of this form for your review. Please check appropriate box(s): [ ] Sepsis due to: (PNA, UTI, gangrenous gall bladder, etc.) [ ] Severe sepsis with acute organ dysfunction of: (Examples: respiratory failure, encephalopathy, acute kidney failure, other) [ ] Localized infection without sepsis [ y] Other diagnosis ____acute PA and anemia [ ] Unable to determine For continuity of documentation, please document condition throughout progress notes and discharge summary. Thank You. CLINICAL INDICATORS - SIGNS / SYMPTOMS / LABS ER PHYSICIAN DOCUMENTATION 06/13: DOCTOR NOTES: EKG W/CONCERNING GLOBAL ISCHEMIC CHANGES, TROP ELEVATED & CONCERNING FOR SUPPLY DEMAND ISCHEMIA. ...I DISCUSSED WITH CARDIOLOGY & CONCERN FOR SEPTIC PROCESS. ...RECOMMENDED CONTINUED RESUSCITATION FOR LIKELY PRIMARY SEPTIC PROCESS. CXR W/LIKELY RLL PNEUMONIA, LACTATE OF 5.5, LABS ALSO NOTABLE FOR ACUTE KIDNEY INJURY... GIVEN PT LIKELY WITH SEPTIC SHOCK, SYMPTOMATIC ANEMIA, PNEUMOSEPSIS. ER PHYSICIAN DIAGNOSES 06/13: NSTEMI; ACUTE ANEMIA, MADY, HYPERKALEMIA, PNEUMONIA, SEPSIS LACTIC ACID: 5.5 BUN/CR: 52/2.35 RR: 24-36 HR: 110- 121 BLOOD CULTURE 06/13: 1 OF 2 POSITIVE FOR GRAM POSITIVE COCCI RISK FACTORS: PNEUMONIA POSITIVE BLOOD CULTURE ADVANCED AGE (87) ACUTE KIDNEY INJURY TREATMENTS: CCU MONITORING ON ADMISSION (06/13) IV ANTIBIOTICS (ROCEPHIN & AZITHROMYCIN 06/13 - PRESENT) 1L NS IN ER (06/13) SERIAL LABS NEPHROLOGY CONSULT THANK YOU! Hanh (This form is maintained as a part of the permanent medical record) 2014 [employer] All Rights Reserved Hanh Bains RN, BSN [email or web address] Office: [phone] [facility]ENTER[facility]
--- NOTE | 2017-06-17 10:13 | PQF ---
CLINICAL DOCUMENTATION IMPROVEMENT CLARIFICATION FORM: ICD-10 Updated PLEASE DO AN ADDENDUM TO THE PROGRESS NOTE WITH ANY DOCUMENTATION UPDATES OR ADDITIONS AND CARRY THROUGH TO DC SUMMARY. THANK YOU. DATE: 06/17 ATTN: DR. Kip JEWELL Please exercise your independent, professional judgment in responding to the clarification form. Clinical indicators are provided on the bottom of this form for your review. Please check appropriate box(s): HEART FAILURE: A. TYPE: [ ] Systolic / HFrEF [ ] Diastolic / HFpEF [ y ] Combined Systolic / Diastolic B.ACUITY [ ] Acute [ ] Acute on Chronic [ ] Chronic C.WITH (if appropriate) [ ] Hypertensive Heart Disease [ ] Hypertensive Heart and Kidney Disease [ ] Other diagnosis [ ] Unable to determine In addition, please specify: Present on Admission (POA): [ ] Yes [ ] No [ ] Unable to determine For continuity of documentation, please document condition throughout progress notes and discharge summary. Thank You. CLINICAL INDICATORS - SIGNS / SYMPTOMS / LABS PHYSICIAN PN DATED 06/14: ASSESSMENT: DIASTOLIC DYSFUNCTION PHYSICIAN PN DATED 06/16: ASSESSMENT: PLEURAL EFFUSION R > L; CHF WITH DECREASED LVF CXR 06/17: IMPRESSION: WORSENING PULMONARY EDEMA & B PLEURAL FLUID, RIGHT GREATER THAN LEFT ECHO 06/13: EF: 20-25%; L VENTRICULAR SIZE MILDLY INCREASED; L ATRIUM MODERATELY DILATED; MILDLY ENLARGED R ATRIUM SIZE RISKS: NSTEMI SMOKES CIGARETTES CKD 4 HTN COPD TREATMENTS: CARDIOLOGY CONSULT (06/14) PO COREG (06/15- PRESENT) SUPPLEMENTAL 02 (2L, 06/13 - PRESENT) ECHO (06/13) THANK YOU! Hanh (This form is maintained as a part of the permanent medical record) 2014 [employer]. All Rights Reserved Hanh Bains RN, BSN [email or web address] Office: [phone] [facility]
--- NOTE | 2017-06-17 11:49 | PRG ---
DATE OF SERVICE: 06/17/2017 SUBJECTIVE: This morning, he is better, less short of breath. X-ray shows a large pleural effusion. I offered him to do a thoracentesis. He declines. OBJECTIVE: VITAL SIGNS: Sats are 98% on 2 liters, blood pressure 170/87, respirations 18, pulse 80. CHEST: Decreased breath sounds in the right lung. Left lung is unremarkable. CARDIAC: Normal S1, S2. No gallops. ABDOMEN: Soft. No masses. LABORATORY DATA: White count 10,000, H&H is 8 and 26, platelet count is normal. Creatinine is 1.89, BUN 73. IMPRESSION: 1. Respiratory failure, right pleural effusion. 2. Myocardial infarction. 3. Chronic obstructive pulmonary disease. 4. Congestive heart failure. 5. Renal failure. PLAN: I would at this stage, deescalate his antibiotics. If family agrees, we will do thoracentesis on him tomorrow. We will continue supportive care, continue cardiac care. We will follow.
--- NOTE | 2017-06-17 12:32 | PRG ---
DATE OF SERVICE: 06/17/2017 SUBJECTIVE: This is an 87-year-old gentleman being seen for acute kidney injury. The patient denies any nausea, vomiting or chest pain. PHYSICAL EXAMINATION: GENERAL: Patient is awake, alert. VITAL SIGNS: Afebrile, pulse 89, breathing at 16, blood pressure 171/78. GENERAL APPEARANCE AND MENTAL STATUS: Fair. HEAD/NECK: Normocephalic, atraumatic. EYES: EOMI. No deformity. EARS: Clear. No ulcers. NOSE: Intact. No lesions. MOUTH: Clear. No discharge. THROAT: Clear. No exudate. LUNGS: Clear. No crackles. CARDIAC: S1, S2. No rub. ABDOMEN: Benign. BS+. GENITALIA/RECTUM: Yee absent. BACK/EXTREMITIES: Edema 0+ Ulcer-. NEUROLOGICAL: Alert and motor intact. SKIN: Rash- Bruise- LYMPHATICS: Edema- Ulcer-. LABORATORY DATA: Show hemoglobin 8.4, potassium 5.1. ASSESSMENT AND RECOMMENDATIONS: 1. Stage 3 chronic kidney disease, stable. 2. Hypertension, stable. 3. Anemia, stable. 4. Hyperkalemia, stable. 5. Metabolic acidosis. Start the patient on sodium bicarbonate.
[2017-06-17] MEDS: Sodium Bicarbonate Tab 325 MG TAB PO SCH ×2 (15:15→20:50)
--- NOTE | 2017-06-17 15:32 | RAD ---
CHEST ONE VIEW 06/17/17 HISTORY: CHF. Followup. Thoracentesis. COMPARISON: Earlier exam on the same date. FINDINGS: Right pleural fluid has decreased significantly since the previous exam. No evidence of pneumothorax. Cardiomegaly and pulmonary congestion are otherwise stable. IMPRESSION: Interval thoracentesis. No evidence of complication. POS: [facility]
[2017-06-17 15:33] LABS: Fluid, Triglycerides Less than 11 mg/dL (Not Available); Pleural Fluid, Amylase Less than 30 U/L (Not Available); Pleural Fluid, Glucose 139 mg/dL; Pleural Fluid, LDH 59 U/L (Not Available); Pleural Fluid, Protein 1.6 g/dL
[2017-06-17 16:51] LABS: BF Color Yellow; Body Fluid Source THORACENTESIS FLD; Clarity Clear (Clear); Tube # EDTA
[2017-06-17 16:52] LABS: BF RBC Count - Manual 0 /cumm; BF WBC/Nonhematics Ct. - Manua 1 /cumm
[2017-06-17] MEDS ORDERED: Furosemide 20 MG/2 ML VIAL SLOW IVP SCH (17:30)
--- NOTE | 2017-06-17 18:52 | OP ---
PROCEDURE: Thoracentesis. PROCEDURE IN DETAIL: After informed consent from the patient, the right posterior thorax was cleaned with chlorhexidine. 1% Xylocaine was infiltrated into the right ninth intercostal space in the mids capular line, and initially about 20 mL of relatively pale yellow fluid was removed. Using an 8 Bengali catheter, a total of additional 1400 mL was removed without any difficulty. Patien t tolerated the procedure well. X-ray pending. Pleural effusion appears to be a transudate. It mike l be sent for appropriate studies including Gram stain and C&S.
[2017-06-17] MEDS: Atorvastatin Calcium 20 MG TAB PO SCH (20:50)
[2017-06-17] MEDS ORDERED: Simvastatin 40 MG TAB PO SCH (21:00)
[2017-06-17 23:52] LABS: Hemoglobin 9.8 g/dL (14.0-18.0)
[2017-06-18 06:31] LABS: Anion Gap 14 mmol/L (10-20); BUN (Urea Nitrogen) 80 mg/dL (8.4-25.7); Calc. Creatinine Clearance 29 mL/min (70-130); Calcium 9.4 mg/dL (7.8-10.44); Carbon Dioxide 17 mmol/L (23-31); Chloride 113 mmol/L (98-107); Estimated GFR-MDRD 33; Glucose 142 mg/dL (83-110); Potassium 5.2 mmol/L (3.5-5.1); Sodium 139 mmol/L (136-145)
[2017-06-18] MEDS: Sodium Bicarbonate Tab 325 MG TAB PO SCH ×3 (08:30→20:47)
[2017-06-18] MEDS: Pantoprazole 40 MG VIAL IVP SCH (08:31)
[2017-06-18] MEDS: hydrALAZINE 25 MG TAB PO SCH ×2 (08:31→20:46)
[2017-06-18] MEDS: Carvedilol 6.25 MG TAB PO SCH ×2 (08:31→16:00)
--- NOTE | 2017-06-18 08:58 | PDOC.CTH ---
<Elizabet Ordoñez - Last Filed: 06/18/17 08:54> Cardiology Progress Note - Subjective The pt seen and examined. No overnight events. No cardiac complaints. After conversation with the pt about his further tx plan, he did not refuse and would like to discuss with doctors for further information. - Objective Vital Signs Temp Pulse Pulse Resp BP BP BP 06/18/17 08:31 82 154/67 H 06/18/17 07:19 97.7 F 82 16 154/85 H 06/18/17 07:18 82 16 06/18/17 05:01 06/18/17 04:14 97.3 F L 84 20 160/91 H 06/18/17 00:29 97.6 F 86 18 156/84 H 06/17/17 22:05 97.8 F 88 18 161/73 H Pulse Ox 06/18/17 08:31 06/18/17 07:19 98 06/18/17 07:18 98 06/18/17 05:01 95 06/18/17 04:14 95 06/18/17 00:29 95 06/17/17 22:05 94 L Weight 166 lb 14.4 oz 06/17/17 06/18/17 06/19/17 06:59 06:59 06:59 Intake Total 1935 2370 Output Total 1260 1250 Balance 675 1120 - Physical Examination General/Neuro: alert & oriented x3 Neck: no JVD present Lungs: CTA (diminished at bases) Heart: RRR Abdomen: soft Extremities: other: (No edema) - Telemetry Telemetry Rhythm: SR 80s - Labs Result Diagrams: 06/17/17 23:33 06/18/17 04:27 Troponin/CKMB CK-MB (CK-2) 5.2 ng/mL (0-6.6) 06/13/17 15:35 Troponin I 4.665 ng/mL (< 0.028) H* 06/14/17 09:15 - Assessment/Plan 1. NSTEMI - stable with BBlocker; no ASA due to possible GI bleed; possible Cardiac cath when the pt's condition become stable with Hgb > 10 and good renal function. 2. HTN - Stable with Coreg 6.25mg BID; cont. monitor 3. MADY on CKD - slightly worsened today than yesterday; managed by taxi servicer 4. Anemia - Hgb 9.4 today after 1PRBC tx yesterday; Hx of duodenal ulcer in the past; cont. monitor; 5. AAA - cont. monitor any symptoms; Possible CT ABD in future for further eval 6. PNA & Bilat Pleural effusion - Thoracentesis with 1400ml out on 06/17/17; on Antibiotic IVs; managed by PCP and musician instrumental 7. Hyperlipidemia - On Zocor 40mg 8. PVD - stable; cont. monitor MAR reviewed Review of Systems - Review of Systems Constitutional: reports: no symptoms reported EENTM: reports: no symptoms reported Respiratory: reports: no symptoms reported Cardiac (ROS): reports: no symptoms reported ABD/GI: reports: no symptoms reported : reports: no symptoms reported Musculoskeletal: reports: no symptoms reported <Cynthia Dickerson - Last Filed: 06/18/17 17:19> Cardiology Progress Note - Objective Vital Signs Temp Pulse Resp BP BP Pulse Ox 06/18/17 16:00 154/67 H 06/18/17 14:32 83 16 98 06/18/17 11:23 98.5 F 83 20 140/71 97 06/18/17 10:53 79 16 95 06/18/17 08:31 82 154/67 H 06/18/17 08:00 97.7 F 82 18 06/18/17 07:19 97.7 F 82 16 154/85 H 98 06/18/17 07:18 82 16 98 Weight 166 lb 14.4 oz 06/17/17 06/18/17 06/19/17 06:59 06:59 06:59 Intake Total 1935 2370 Output Total 1260 1250 Balance 675 1120 - Labs Result Diagrams: 06/17/17 23:33 06/18/17 04:27 Troponin/CKMB CK-MB (CK-2) 5.2 ng/mL (0-6.6) 06/13/17 15:35 Troponin I 4.665 ng/mL (< 0.028) H* 06/14/17 09:15 - Assessment/Plan Pt. was seen and eval. by me . I agree with the A/P by the DOT COMPLIANCE MANAGER. I will plan for cardiac cath if the Hgb. is above 10 and remains stable and the renal function is stable and if the pt. agrees. He likely has severe CAD and has a severe decrease in LV syst. function.
--- NOTE | 2017-06-18 10:26 | PRG ---
DATE OF SERVICE: 06/18/2017 He is seen today. He is better since his thoracentesis, less short of breath. PHYSICAL EXAMINATION: VITAL SIGNS: Blood pressure 150/67, pulse 82, temperature 97, respirations 18, sat 90% on room air. CHEST: Chest reveals decreased breath sounds bilaterally. CARDIAC: Normal S1, S2. No gallops. ABDOMEN: Soft, no masses. Creatinine of 1.94, BUN is 80. His pleural effusion was clearly a transudate. IMPRESSION: 1. Right pleural effusion, transudate. 2. Congestive heart failure. 3. Myocardial infarction. 4. Renal failure. PLAN: Disposition as per primary care physician. Switch over to oral antibiotics.
[2017-06-18] MEDS: cefTRIAXone\\ROCEPHIN 2 GM in Sodium Chloride 0.9% 100 ML IVPB SCH (10:28)
--- NOTE | 2017-06-18 11:11 | PRG ---
DATE OF SERVICE: 06/18/2017 SUBJECTIVE: An 87-year-old gentleman being seen for acute kidney injury. The patient denies any nikunj sea, vomiting or chest pain. OBJECTIVE: GENERAL: The patient is awake and alert. VITAL SIGNS: Afebrile, pulse 77, breathing 16 and blood pressure 154/85. HEAD/NECK: Normocephalic. Atraumatic. EYES: EOMI. No deformity. EARS: Clear. No ulcers. NOSE: Intact. No lesions. MOUTH: Clear. No discharge. THROAT: Clear. No exudate. LUNGS: Clear. No crackles. CARDIAC: S1, S2. No rub. ABDOMEN: Benign. BS+. GENITALIA/RECTUM: Yee absent. BACK/EXTREMITIES: Edema 0+. Ulcer-. NEUROLOGICAL: Alert and motor intact. SKIN: Rash-. Bruise-. LYMPHATICS: Edema-. Ulcer-. LABORATORY DATA: Showed a hemoglobin of 9.8. Potassium 5.2 and bicarbonate 17. ASSESSMENT AND RECOMMENDATIONS: 1. Stage 3 chronic kidney disease, stable. 2. Hypertension, stable. 3. Metabolic acidosis. Increase sodium bicarbonate to 975 t.i.d. 4. Hyperkalemia. Give Kayexalate and low potassium diet.
--- NOTE | 2017-06-18 17:29 | PRG ---
DATE OF SERVICE: 06/18/2017 SUBJECTIVE: Mr. Russell had thoracentesis yesterday. He is feeling better today in terms of his br eathing. His family states he is having a little bit of problems sleeping at night and also that he has not had a bowel movement. On talking with the nurses, they stated he actually had bowel movement s. MEDICATIONS: Albuterol, Atrovent, carvedilol, Omnicef, Lasix 20 once yesterday, hydralazine, nitrogl ycerin, Protonix 40 mg p.o. daily, prednisone 20 mg daily and sodium bicarbonate. OBJECTIVE: GENERAL: The patient is sitting up in a chair. VITAL SIGNS: Temperature is 98, pulse 73 and blood pressure 154/67. LUNGS: Decreased breath sounds at bases bilaterally, left more than right. HEART: Regular rate and rhythm. ABDOMEN: Soft and nontender. LABORATORY STUDIES: Hemoglobin is 9.8 today. BUN and creatinine are 80 and 1.94, potassium 5.2. ASSESSMENT AND PLAN: 1. Hyperkalemia, given Kayexalate today 30 grams. 2. Heart failure. He received a unit of blood and 20 of Lasix IV yesterday without my order. His B UN is higher today 80 and creatinine is 1.94. His albumin was 4 on admission. 3. Severe anemia on admission, hemoglobin of 6, normal MCV but low iron stores on testing and known prior ulcer in 2017 with a followup esophagogastroduodenoscopy showing resolution of that ulcer. The re have been no signs of acute gastrointestinal bleeding this admission. In fact, he had a brown sto ol on rectal exam on admission. Plan with regard to his iron deficiency anemia from a GI standpoint, ideally, we would like to perform an upper and lower endoscopy. He has never had a colonoscopy befo re. He refused that in August and November when we had seen him at the time of the upper GI tract ulcer. At this time, after talking with Cardiology, we will wait until they go ahead and proceed with endos copies. I talked to them yesterday, they felt we should wait a little bit longer to see if his conge stive heart failure will improve. They had recommended transfusion . At this time, we will jus t follow from a periphery and once Cardiology feels he is safe to undergo sedation and endoscopies, w e will go ahead and schedule that.
--- NOTE | 2017-06-18 17:55 | PRG ---
DATE OF SERVICE: 06/17/2017 SUBJECTIVE: Mr. Russell is still short of breath. There is a talk of him having thoracentesis toda y. He has not been transfused. He is not receiving diuretics. OBJECTIVE: VITAL SIGNS: Temperature is 97.8, pulse of 98, blood pressure 171/78. LUNGS: Decreased breath sounds at bases bilaterally. ABDOMEN: Soft, nontender. EXTREMITIES: Trace edema. LABORATORY STUDIES: On 06/17/2017, hemoglobin is 8.4, white count 10.5, hematocrit 26.4, platelets 2 37. BUN and creatinine are 73 and 1.89. Sodium 140, potassium 5.1. BNP 3861, it was 1605 on admiss ion. ASSESSMENT: 1. Anemia, possible GI bleed, although he has had no acute bleeding. He was admitted with iron defi ciency. He has been on blood thinners. Presently, he is hemodynamically stable. In accordance with Cardiology's recommendations, we will transfuse him with another unit of blood to optimize his cardi ac function, we will give Lasix with this. We will wait until after he is going to have his thoracen tesis and that is the plan today, which I am told it is. 2. Heart failure with EF of 20%, worsening appearance on chest x-ray and worsening BMP today. 3. With regards to questions of endoscopy, he is not a candidate for endoscopy at this point in time with acute congestive heart failure, which is worsening and large pleural effusions. I talked with Cardiology and they would like to wait several days until see if we can get some improvement in his c ardiac function and acute congestive heart failure exacerbation before embarking on any type of sedat ion and endoscopy.
[2017-06-18 18:07] LABS: Anion Gap 13 mmol/L (10-20); BUN (Urea Nitrogen) 79 mg/dL (8.4-25.7); Calc. Creatinine Clearance 31 mL/min (70-130); Carbon Dioxide 19 mmol/L (23-31); Chloride 115 mmol/L (98-107); Estimated GFR-MDRD 36; Glucose 115 mg/dL (83-110); Potassium 4.8 mmol/L (3.5-5.1); Sodium 142 mmol/L (136-145)
[2017-06-18] MEDS: Atorvastatin Calcium 20 MG TAB PO SCH (20:47)
[2017-06-18] MEDS: Cefdinir 300 MG CAP PO SCH (20:47)
[2017-06-19 06:15] LABS: Anion Gap 10 mmol/L (10-20); BUN (Urea Nitrogen) 76 mg/dL (8.4-25.7); Calc. Creatinine Clearance 34 mL/min (70-130); Calcium 8.9 mg/dL (7.8-10.44); Carbon Dioxide 24 mmol/L (23-31); Chloride 113 mmol/L (98-107); Estimated GFR-MDRD 41; Glucose 97 mg/dL (83-110); Potassium 4.3 mmol/L (3.5-5.1); Sodium 143 mmol/L (136-145)
[2017-06-19 06:20] LABS: Critical Call Chem Troponin I RESULT DECREASING
--- NOTE | 2017-06-19 09:04 | PDOC.CTH ---
<Elizabet Ordoñez - Last Filed: 06/19/17 09:03> Cardiology Progress Note - Subjective The pt seen and examined. No overnight events. No cardiac complaints. - Objective Vital Signs Temp Pulse Resp BP Pulse Ox 06/19/17 07:51 98.7 F 85 20 159/78 H 96 06/19/17 06:20 83 16 06/19/17 04:17 97.5 F L 91 22 H 176/88 H 91 L 06/18/17 23:27 98.6 F 89 16 159/82 H 97 Weight 166 lb 14.4 oz 06/18/17 06/19/17 06/20/17 06:59 06:59 06:59 Intake Total 2370 850 Output Total 1250 Balance 1120 850 - Physical Examination General/Neuro: alert & oriented x3 Neck: no JVD present Lungs: CTA Heart: RRR Abdomen: soft Extremities: other: (No edema) - Telemetry Telemetry Rhythm: SR - Labs Result Diagrams: 06/17/17 23:33 06/19/17 05:10 Troponin/CKMB CK-MB (CK-2) 5.2 ng/mL (0-6.6) 06/13/17 15:35 Troponin I 1.180 ng/mL (< 0.028) H* 06/19/17 05:10 - Assessment/Plan 1. NSTEMI - stable with BBlocker; no ASA due to possible GI bleed; possible Cardiac cath when the pt's condition become stable with Hgb > 10 and good renal function. Re-check CBC today 2. HTN - Increase Coreg from 6.25mg to 12.5mg BID; cont. monitor 3. MADY on CKD - slightly improved today than yesterday; managed by chief digital media officer 4. Anemia - Re-check CBC today; Hx of duodenal ulcer in the past; cont. monitor ; 5. AAA - cont. monitor any symptoms; Possible CT ABD in future for further eval 6. PNA & Bilat Pleural effusion - Thoracentesis with 1400ml out on 06/17/17; on Antibiotic IVs; managed by PCP and investment recovery technician 7. Hyperlipidemia - On Zocor 40mg 8. PVD - stable; cont. monitor MAR reviewed * plan for cardiac cath if the Hgb. is above 10 and remains stable and the renal function is stable and if the pt. agrees. He likely has severe CAD and has a severe decrease in LV syst. function. Review of Systems - Review of Systems Constitutional: reports: no symptoms reported EENTM: reports: no symptoms reported Respiratory: reports: no symptoms reported Cardiac (ROS): reports: no symptoms reported ABD/GI: reports: no symptoms reported : reports: no symptoms reported <Cynthia Dickersonan - Last Filed: 06/19/17 14:55> Cardiology Progress Note - Objective Vital Signs Temp Pulse Resp BP BP Pulse Ox 06/19/17 12:00 98.4 F 80 20 156/74 H 94 L 06/19/17 10:51 72 16 06/19/17 10:15 166/80 H 06/19/17 09:53 166/80 H 06/19/17 08:00 98.7 F 72 16 06/19/17 07:51 98.7 F 85 20 159/78 H 96 06/19/17 06:20 83 16 06/19/17 04:17 97.5 F L 91 22 H 176/88 H 91 L Weight 166 lb 14.4 oz 06/18/17 06/19/17 06/20/17 06:59 06:59 06:59 Intake Total 2370 850 Output Total 1250 Balance 1120 850 - Labs Result Diagrams: 06/19/17 09:29 06/19/17 05:10 Troponin/CKMB CK-MB (CK-2) 5.2 ng/mL (0-6.6) 06/13/17 15:35 Troponin I 1.180 ng/mL (< 0.028) H* 06/19/17 05:10 - Assessment/Plan Pt. seen and eval. He continues to improve. The Hgb. is stable and the renal function has improved. If he remains stable over the weekend and agrees to undergo cardiac cath, this could be done on Thursday or . I discussed cardiac cath again with him today and explained the procedure and risks.
[2017-06-19] MEDS ORDERED: Carvedilol 6.25 MG TAB PO SCH ×2 (09:15→09:30)
[2017-06-19] MEDS: Carvedilol 6.25 MG TAB PO SCH ×2 (09:53→16:03)
[2017-06-19 10:05] LABS: #Lymphocytes 1.3 thou/uL (1.20-3.40); #Monocytes 1.1 thou/uL (0.11-0.59); #Neutrophils 8.9 thou/uL (1.40-6.50); %Eosinophils 0.3 % (0.0-10.0); %Lymphocytes 11.3 % (21.0-51.0); %Monocytes 9.8 % (0.0-10.0); %Neutrophils 78.5 % (42.0-75.0); Hemoglobin 11.6 g/dL (14.0-18.0); Mean Corpuscular HGB CONC 32.8 g/dL (32.0-36.0); Mean Corpuscular Hemoglobin 28.9 pg (27.0-31.0); Mean Corpuscular Volume 88.2 fl (80.0-94.0); Mean Platelet Volume 8.9 fL (7.4-10.4); Platelet Count 193 thou/uL (130-400); RBC Distribution Width 14.3 % (11.5-14.5); Red Blood Cell (RBC) Count 4.01 mill/uL (4.70-6.10); White Blood Cell (WBC) Count 11.3 thou/uL (4.8-10.8)
[2017-06-19] MEDS: predniSONE 20 MG TAB PO SCH (10:15)
[2017-06-19] MEDS: Cefdinir 300 MG CAP PO SCH ×2 (10:15→20:53)
[2017-06-19] MEDS: hydrALAZINE 25 MG TAB PO SCH ×2 (10:15→20:53)
[2017-06-19] MEDS: Sodium Bicarbonate Tab 325 MG TAB PO SCH ×3 (10:15→20:52)
--- NOTE | 2017-06-19 10:33 | PRG ---
DATE OF SERVICE: 06/19/2017 SUBJECTIVE: An 87-year-old gentleman being seen for acute kidney injury and hyperkalemia. The patie nt denies any nausea, vomiting or chest pain. PHYSICAL EXAMINATION: GENERAL: Patient is awake, alert. VITAL SIGNS: Afebrile, pulse 75, breathing at 16, blood pressure was 159/78. HEAD/NECK: Normocephalic. Atraumatic. EYES: EOMI. No deformity. EARS: Clear. No ulcers. NOSE: Intact. No lesions. MOUTH: Clear. No discharge. THROAT: Clear. No exudate. LUNGS: Clear. No crackles. CARDIAC: S1, S2. No rub. ABDOMEN: Benign. BS+. GENITALIA/RECTUM: Yee absent. BACK/EXTREMITIES: Edema 0+ Ulcer- NEUROLOGICAL: Alert and motor intact. SKIN: Rash- Bruise- LYMPHATICS: Edema- Ulcer- LABORATORY DATA: Show hemoglobin 11.6, potassium is 4.3. ASSESSMENT AND RECOMMENDATIONS: 1. Acute kidney injury, stable. 2. Hypertension, stable. 3. Anemia, stable. 4. Metabolic acidosis, stable. No indication for dialysis. I will sign off on this patient. Pleas e reconsult as needed.
--- NOTE | 2017-06-19 11:18 | PRG ---
DATE OF SERVICE: 06/19/2017 SUBJECTIVE: Mr. Russell is awake, alert, and responsive. OBJECTIVE: VITAL SIGNS: Blood pressure is 159/78, sats are 96% on room air, respiratory rate 20. Denies shortn ess of breath. CHEST: Decreased breath sounds, no wheezing. CARDIAC: Normal S1, S2. ABDOMEN: Soft, no masses. LABORATORY DATA: Troponin I is 1.18, creatinine 1.62. ASSESSMENT: Congestive heart failure, pleural effusion, myocardial infarction, coronary artery disea se, and renal failure. From a pulmonary standpoint of view, we can discharge home at anytime. Follow with primary care phys garrett.
[2017-06-19] MEDS ORDERED: GoLYTELY 4,000 ml Bottle PO SCH (16:30)
[2017-06-19] MEDS: Atorvastatin Calcium 20 MG TAB PO SCH (20:53)
--- NOTE | 2017-06-19 23:29 | PRG ---
DATE OF SERVICE: 06/19/2017 SUBJECTIVE: Mr. Russell is breathing better. His family is at the bedside. The nurses note that bryce william has done well today. He has no chest pain. He has no abdominal pain. OBJECTIVE: VITAL SIGNS: Temperature is 97, pulse 86, blood pressure 156/71, respirations 14, O2 sat 96% on room air. LUNGS: Clear, decreased breath sounds at the bases. ABDOMEN: Slightly protuberant, nontender. LABORATORY DATA: Sodium 143, potassium 4.3, BUN and creatinine are 76 and 1.62. Troponin has been 1 .18. Hemoglobin is 11.6, white count 11.4, platelet count 183. ASSESSMENT: 1. Heart failure with ejection fraction about 20%. He had a non-Q-wave [place] on admission, this was li yue related to demand ischemia with severe anemia, although he does have a risk factor for underlyin g coronary artery disease. In talking with Cardiology today they have planned to do a heart catheter ization on Thursday or Thursday. We talked about the timing of endoscopy, they would prefer endoscopy b efore and if we can get that done from the standpoint of having to make decisions regarding candidacy for stenting or anticoagulation if needed. At this time, it seems that he is stable. His heart anisha lure has improved markedly. His hemoglobin is now greater than 10, so we can go ahead and get him se t up for upper and lower endoscopy tomorrow. I discussed with the patient and family about the risks , benefits, possible complications of endoscopy including perforation and risk of aspiration. They u nderstand this and wished to proceed. 2. Renal failure, improved. 3. Pleural effusions, improved. This is related to heart failure. PLAN: Upper and lower endoscopy tomorrow if patient's pulmonary status is acceptable.
[2017-06-20 05:55] LABS: Anion Gap 13 mmol/L (10-20); BUN (Urea Nitrogen) 70 mg/dL (8.4-25.7); Calc. Creatinine Clearance 36 mL/min (70-130); Calcium 8.9 mg/dL (7.8-10.44); Carbon Dioxide 24 mmol/L (23-31); Chloride 113 mmol/L (98-107); Estimated GFR-MDRD 43; Glucose 86 mg/dL (83-110); Potassium 4.6 mmol/L (3.5-5.1); Sodium 145 mmol/L (136-145)
[2017-06-20] MEDS: hydrALAZINE 25 MG TAB PO SCH ×2 (09:11→20:51)
[2017-06-20] MEDS: Carvedilol 6.25 MG TAB PO SCH ×2 (09:13→18:00)
[2017-06-20] MEDS ORDERED: Propofol 500 MG/50 ML VIAL ONE (13:24)
[2017-06-20] MEDS ORDERED: PHENYLEPHRINE-NS 100 MCG/ML 10 ML SYRINGE ONE (13:51)
[2017-06-20] MEDS ORDERED: PROPOFOL 200 MG/20 ML VIAL ONE (13:51)
[2017-06-20] MEDS ORDERED: Promethazine HCl 25 MG/ML VIAL SLOW IVP PRN (15:00)
[2017-06-20] MEDS ORDERED: Ondansetron HCl/PF 4 MG/2 ML Vial IVP PRN (15:00)
[2017-06-20] MEDS ORDERED: Promethazine HCl 25 MG/ML VIAL IM PRN (15:00)
[2017-06-20] MEDS: Cefdinir 300 MG CAP PO SCH ×2 (15:53→20:51)
[2017-06-20] MEDS: Sodium Bicarbonate Tab 325 MG TAB PO SCH ×3 (15:54→20:52)
[2017-06-20] MEDS: predniSONE 20 MG TAB PO SCH (16:23)
[2017-06-20] MEDS ORDERED: GoLYTELY 4,000 ml Bottle PO SCH (17:00)
--- NOTE | 2017-06-20 18:58 | OP ---
DATE OF PROCEDURE: 06/20/2017 PROCEDURE: Esophagogastroduodenoscopy with biopsy and digital fecal disimpaction. PROCEDURE IN DETAIL: Informed consent was obtained. The patient was sedated with total intravenous anesthesia. The bite block was placed and the endoscope was advanced easily to the second portion of the duodenum and retroflexion was performed in the stomach. The esophagus was normal. The GE junct ion was normal. There was mild erythematous gastritis in the antrum in the stomach. There is mild d eformity of the antrum in the stomach from her past peptic ulcer disease. Biopsies were obtained fro m the antrum to rule out H. pylori. Retroflexed views in the stomach were normal. The first portion of the duodenum was edematous and did not distend very well. Biopsies were obtained. However, no f ocal ulcer or lesion was identified here. The second portion of the duodenum was normal. IMPRESSION: 1. Mild erythematous gastritis in the antrum, biopsied. 2. Edematous duodenitis in the first portion of the duodenum, biopsied. 3. Otherwise normal esophagogastroduodenoscopy. 4. There was hard stool in the rectal vault which was digitally disimpacted until still soft stool w as encountered in the more proximal rectum. He did complete a gallon of GoLYTELY. We will repeat 4 liters of GoLYTELY this evening and retry colonoscopy tomorrow. Colonoscopy was not attempted today given the hard stool in the rectal vault.
[2017-06-20] MEDS: Atorvastatin Calcium 20 MG TAB PO SCH (20:50)
[2017-06-21 05:53] LABS: Anion Gap 13 mmol/L (10-20); BUN (Urea Nitrogen) 52 mg/dL (8.4-25.7); Calc. Creatinine Clearance 39 mL/min (70-130); Calcium 8.5 mg/dL (7.8-10.44); Carbon Dioxide 26 mmol/L (23-31); Chloride 110 mmol/L (98-107); Estimated GFR-MDRD 47; Glucose 89 mg/dL (83-110); Potassium 4.5 mmol/L (3.5-5.1); Sodium 144 mmol/L (136-145)
[2017-06-21] MEDS: Carvedilol 6.25 MG TAB PO SCH ×2 (06:16→18:02)
[2017-06-21] MEDS: predniSONE 20 MG TAB PO SCH (10:43)
[2017-06-21] MEDS: hydrALAZINE 25 MG TAB PO SCH ×2 (10:43→20:42)
[2017-06-21] MEDS: Cefdinir 300 MG CAP PO SCH ×2 (10:43→20:42)
[2017-06-21] MEDS: Sodium Bicarbonate Tab 325 MG TAB PO SCH ×3 (10:43→20:42)
--- NOTE | 2017-06-21 12:09 | OP ---
DATE OF PROCEDURE: 06/21/2017 PROCEDURE: Colonoscopy. PREOPERATIVE DIAGNOSIS: Anemia and iron deficiency. PROCEDURE IN DETAIL: Informed consent was obtained from the patient. He was sedated with total intr avenous anesthesia. The rectal exam was performed and was normal. The preparation quality was good. The colonoscope was advanced to the cecum where the ileocecal valve and appendiceal orifice were cl early identified. There was mild diverticulosis in the right colon. The remainder of the colonic mu cosa was normal including retroflexed views in the rectum. IMPRESSION: 1. Diverticulosis in the right colon. 2. Otherwise normal colonoscopy. RECOMMENDATIONS: 1. Advance diet. 2. I will sign off. Please call if GI can be of assistance.
[2017-06-21] MEDS ORDERED: Furosemide 40 MG/4 ML VIAL SLOW IVP SCH (14:00)
[2017-06-21] MEDS ORDERED: PROPOFOL 200 MG/20 ML VIAL ONE (14:39)
[2017-06-21] MEDS ORDERED: PHENYLEPHRINE-NS 100 MCG/ML 10 ML SYRINGE ONE (14:39)
[2017-06-21] MEDS: Sodium Chloride 0.9% 1,000 ML IV SCH (18:45)
[2017-06-21] MEDS: Atorvastatin Calcium 20 MG TAB PO SCH (20:42)
[2017-06-22] MEDS: Sodium Chloride 0.9% 1,000 ML IV SCH ×2 (05:10→15:37)
[2017-06-22 05:41] LABS: #Eosinphils 0.1 thou/uL (0.0-0.7); #Lymphocytes 1.5 thou/uL (1.20-3.40); #Monocytes 0.8 thou/uL (0.11-0.59); #Neutrophils 6.3 thou/uL (1.40-6.50); %Basophils 0.2 % (0.0-1.0); %Eosinophils 0.7 % (0.0-10.0); %Lymphocytes 17.1 % (21.0-51.0); Mean Corpuscular HGB CONC 31.8 g/dL (32.0-36.0); Mean Corpuscular Hemoglobin 27.7 pg (27.0-31.0); Mean Corpuscular Volume 87.3 fl (80.0-94.0); Mean Platelet Volume 9.4 fL (7.4-10.4); Platelet Count 141 thou/uL (130-400); RBC Distribution Width 14.8 % (11.5-14.5); Red Blood Cell (RBC) Count 3.59 mill/uL (4.70-6.10); White Blood Cell (WBC) Count 8.7 thou/uL (4.8-10.8)
[2017-06-22 06:20] LABS: Anion Gap 11 mmol/L (10-20); BUN (Urea Nitrogen) 57 mg/dL (8.4-25.7); Calc. Creatinine Clearance 33 mL/min (70-130); Calcium 8.7 mg/dL (7.8-10.44); Carbon Dioxide 26 mmol/L (23-31); Chloride 109 mmol/L (98-107); Estimated GFR-MDRD 38; Glucose 111 mg/dL (83-110); Potassium 4.2 mmol/L (3.5-5.1); Sodium 142 mmol/L (136-145)
[2017-06-22] MEDS: Carvedilol 6.25 MG TAB PO SCH ×2 (09:22→16:23)
[2017-06-22] MEDS: Sodium Bicarbonate Tab 325 MG TAB PO SCH ×3 (09:51→21:16)
[2017-06-22] MEDS: hydrALAZINE 25 MG TAB PO SCH (09:52)
[2017-06-22] MEDS: Cefdinir 300 MG CAP PO SCH ×2 (09:52→21:16)
[2017-06-22] MEDS: predniSONE 20 MG TAB PO SCH (09:52)
--- NOTE | 2017-06-22 11:17 | PDOC.CTH ---
<Elizabet Ordoñez - Last Filed: 06/22/17 11:36> Cardiology Progress Note - Subjective The pt seen and examined. No overnight events. No cardiac complaints. - Objective Vital Signs Temp Pulse Resp BP BP Pulse Ox 06/22/17 09:52 161/67 H 06/22/17 09:22 161/67 H 06/22/17 08:00 98.7 F 63 18 159/65 H 96 06/22/17 06:41 76 16 98 06/22/17 04:00 98.5 F 61 20 124/55 L 97 Weight 166 lb 14.4 oz 06/21/17 06/22/17 06/23/17 06:59 06:59 06:59 Intake Total 6500 450 Output Total 11 500 Balance 6489 -50 - Physical Examination General/Neuro: alert & oriented x3 Neck: no JVD present Lungs: other: (diminished at bases) Heart: RRR Abdomen: soft Extremities: other: (No edemas) - Telemetry Telemetry Rhythm: SR with ST changes - Labs Result Diagrams: 06/22/17 05:14 06/22/17 05:14 Troponin/CKMB CK-MB (CK-2) 5.2 ng/mL (0-6.6) 06/13/17 15:35 Troponin I 1.180 ng/mL (< 0.028) H* 06/19/17 05:10 - Assessment/Plan 1. NSTEMI - stable with BBlocker; no ASA due to possible GI bleed; possible Cardiac cath when the pt's condition become stable with Hgb > 10 and good renal function. Re-check CBC today 2. HTN - Start Norvasc 5mg daily; cont. monitor 3. MADY on CKD - Cr 1.7 today from 1.4 today; Receiving NS @ 75ml/h; 4. Anemia - Hgb 10 today; Hx of duodenal ulcer in the past; cont. monitor; 5. AAA - cont. monitor any symptoms; Possible CT ABD in future for further eval 6. PNA & Bilat Pleural effusion - Thoracentesis with 1400ml out on 06/17/17; on Antibiotic IVs; managed by PCP and bulk mail technician 7. Hyperlipidemia - On Zocor 40mg 8. PVD - stable; cont. monitor MAR reviewed * normal EGD and mild Rt colon iverticulosis by colonoscopy on 06/21/17 * plan for cardiac cath tomorrow around 0930 if the Hgb. is above 10 and remains stable and the renal function is stable and if the pt. agrees. Review of Systems - Review of Systems Constitutional: reports: no symptoms reported EENTM: reports: no symptoms reported Respiratory: reports: no symptoms reported Cardiac (ROS): reports: no symptoms reported ABD/GI: reports: no symptoms reported : reports: no symptoms reported <Cynthia Dickerson - Last Filed: 06/22/17 16:59> Cardiology Progress Note - Objective Vital Signs Temp Pulse Resp BP BP Pulse Ox 06/22/17 16:23 161/67 H 06/22/17 15:49 98.7 F 66 16 151/70 H 95 06/22/17 12:48 66 06/22/17 11:51 98.6 F 66 18 151/58 H 94 L 06/22/17 09:52 161/67 H 06/22/17 09:22 161/67 H 06/22/17 08:00 98.7 F 63 18 159/65 H 96 06/22/17 06:41 76 16 98 Weight 166 lb 14.4 oz 06/21/17 06/22/17 06/23/17 06:59 06:59 06:59 Intake Total 6500 450 Output Total 11 500 Balance 6489 -50 - Labs Result Diagrams: 06/22/17 05:14 06/22/17 05:14 Troponin/CKMB CK-MB (CK-2) 5.2 ng/mL (0-6.6) 06/13/17 15:35 Troponin I 1.180 ng/mL (< 0.028) H* 06/19/17 05:10 - Assessment/Plan Pt. seen and eval. by me. the plan was for a cardiac cath this AM but the creat. has increased again and the Hgb. has decreased. I explained to the pt. and family that I may be able to safely perform the cath in AM but it is not likely that I can perform an intervention due to the increased amount of contrast that is required and if he continues to drift downward on the Hgb., I would not be able to give anticoagulation for the procedure. I otherwise agree with the A/P by the GYM MANAGER.
[2017-06-22] MEDS ORDERED: Communication Order-Pharmacy FS SCH ×2 (11:45→17:00)
--- NOTE | 2017-06-22 11:57 | PRG ---
DATE OF SERVICE: 06/22/2017 No shortness of breath, cough or wheezing. PHYSICAL EXAMINATION: VITAL SIGNS: Blood pressure 161/67, O2 sats 96% on room air, respiration 29, temperature 98. CHEST: Chest revealed decreased breath sounds, no wheezing. CARDIAC: Normal S1. ABDOMEN: No masses. LABORATORY: Creatinine 1.71, BUN 57. White count 8000. IMPRESSION: 1. Right pleural effusion. 2. Congestive heart failure. 3. Renal failure. 4. Abdominal pain. 5. Anemia. Apparently the patient is scheduled for a cardiac cath. Pulmonary yeung, he is stable, empiric antibi otics, neb treatments. We will follow while in the hospital.
[2017-06-22] MEDS ORDERED: Amlodipine 5 MG TAB PO SCH (12:00)
--- NOTE | 2017-06-22 17:25 | PRG ---
DATE OF SERVICE: 06/22/2017 SUBJECTIVE: Mr. Russell has upper and lower endoscopy yesterday for iron deficiency anemia. He had a brown stool. There is no evidence of acute bleeding at this admission. These endoscopies were ne gative with the EGD being negative on Thursday and colonoscopy being negative yesterday. He is witho ut complaints today. OBJECTIVE: VITAL SIGNS: Blood pressure 161/64, temperature 98. LUNGS: Clear. HEART: Regular rate and rhythm without clicks or murmurs. ABDOMEN: Nontender. LABORATORY STUDIES: Hemoglobin is 8.7, platelet count of 141. Basic metabolic profile with a BUN an d creatinine of 57 and 1.71. ASSESSMENT: 1. Iron deficiency anemia, likely related to chronic anticoagulation. 2. No signs of overt bleeding. 3. Recent myocardial infarction, probably related to demand ischemia. RECOMMENDATIONS: Would be iron supplementation on a regular basis, PPI therapy prophylaxis for prior history of ulcers. We will consider further GI workup if there are signs of overt GI bleeding.
[2017-06-22] MEDS: Atorvastatin Calcium 20 MG TAB PO SCH (21:15)
[2017-06-23] MEDS: hydrALAZINE 25 MG TAB PO SCH ×3 (05:25→20:41)
[2017-06-23 05:50] LABS: #Lymphocytes 1.5 thou/uL (1.20-3.40); #Monocytes 0.9 thou/uL (0.11-0.59); #Neutrophils 6.3 thou/uL (1.40-6.50); %Basophils 0.1 % (0.0-1.0); %Eosinophils 0.5 % (0.0-10.0); %Lymphocytes 17.4 % (21.0-51.0); %Monocytes 9.8 % (0.0-10.0); %Neutrophils 72.2 % (42.0-75.0); Hemoglobin 10.1 g/dL (14.0-18.0); Mean Corpuscular HGB CONC 31.2 g/dL (32.0-36.0); Mean Corpuscular Hemoglobin 27.4 pg (27.0-31.0); Mean Corpuscular Volume 87.8 fl (80.0-94.0); Mean Platelet Volume 9.6 fL (7.4-10.4); Platelet Count 129 thou/uL (130-400); RBC Distribution Width 14.8 % (11.5-14.5); Red Blood Cell (RBC) Count 3.69 mill/uL (4.70-6.10); White Blood Cell (WBC) Count 8.7 thou/uL (4.8-10.8)
[2017-06-23] MEDS: Carvedilol 6.25 MG TAB PO SCH ×2 (06:08→17:44)
[2017-06-23] MEDS: Sodium Chloride 0.9% 1,000 ML IV SCH ×2 (06:14→19:23)
[2017-06-23 06:18] LABS: Anion Gap 11 mmol/L (10-20); BUN (Urea Nitrogen) 51 mg/dL (8.4-25.7); Calc. Creatinine Clearance 34 mL/min (70-130); Calcium 8.6 mg/dL (7.8-10.44); Carbon Dioxide 25 mmol/L (23-31); Chloride 109 mmol/L (98-107); Estimated GFR-MDRD 41; Glucose 106 mg/dL (83-110); Potassium 4.5 mmol/L (3.5-5.1); Sodium 140 mmol/L (136-145)
--- NOTE | 2017-06-23 09:47 | PRG ---
DATE OF SERVICE: 06/23/2017 This morning he is awake, alert, responsive. He is scheduled for a cath today. PHYSICAL EXAMINATION: VITAL SIGNS: Sats are 100% on room air, respiration rate 18, temperature 98, blood pressure 106/73. CHEST: Chest reveals decreased breath sounds, no wheezing. CARDIAC: Normal S1, S2. Creatinine 1.62. Electrolytes are normal. White count 8000. IMPRESSION: 1. Respiratory failure. 2. Congestive heart failure. 3. Possibly pneumonia. 4. Renal failure. PLAN: Disposition as per Cardiology. Pulmonary will follow at a distance if he is to have a cardiac intervention pulmonary will see him again.
[2017-06-23] MEDS ORDERED: Heparin 10,000 UNITS/1 ML VIAL ONE (10:27)
[2017-06-23] MEDS ORDERED: Nitroglycerin 100MG/250ML BOT 250 ML ONE (10:27)
[2017-06-23] MEDS ORDERED: Verapamil 5 MG/2 ML VIAL ONE (10:27)
[2017-06-23] MEDS ORDERED: Acetaminophen/Codeine 30-300mg Tablet PO PRN ×2 (11:43)
[2017-06-23] MEDS ORDERED: Nitroglycerin 0.4 MG TAB (25 Tab Bottle) SL PRN (11:43)
[2017-06-23] MEDS ORDERED: traMADol HCl 50 MG TAB PO PRN (11:43)
[2017-06-23] MEDS ORDERED: Sodium Chloride 0.9% 200 ML IV SCH (11:43)
[2017-06-23] MEDS: Sodium Bicarbonate Tab 325 MG TAB PO SCH ×3 (12:00→20:42)
[2017-06-23] MEDS: Cefdinir 300 MG CAP PO SCH ×2 (12:01→20:41)
[2017-06-23] MEDS: Amlodipine 5 MG TAB PO SCH (12:01)
[2017-06-23] MEDS: predniSONE 20 MG TAB PO SCH (12:02)
[2017-06-23] MEDS ORDERED: Iopamidol 370 76% 100 ML VIAL ONE (12:26)
[2017-06-23] MEDS: Atorvastatin Calcium 20 MG TAB PO SCH (20:41)
[2017-06-24 06:17] LABS: Anion Gap 9 mmol/L (10-20); BUN (Urea Nitrogen) 47 mg/dL (8.4-25.7); Calc. Creatinine Clearance 37 mL/min (70-130); Calcium 8.7 mg/dL (7.8-10.44); Carbon Dioxide 25 mmol/L (23-31); Estimated GFR-MDRD 44; Glucose 93 mg/dL (83-110)
[2017-06-24 06:40] LABS: Chloride 110 mmol/L (98-107); Potassium 4.4 mmol/L (3.5-5.1); Sodium 140 mmol/L (136-145)
[2017-06-24] MEDS: Sodium Chloride 0.9% 1,000 ML IV SCH ×2 (06:55→19:04)
--- NOTE | 2017-06-24 08:17 | PDOC.CTH ---
<Elizabet Ordoñez - Last Filed: 06/24/17 08:20> Cardiology Progress Note - Subjective The pt seen and examined. No overnight events. No cardiac complaints. is at bedside. NS was stopped last night due to increasing crackles. After the pt and discussed, they decided the pt's code status to be DNR. - Objective Vital Signs Temp Pulse Resp BP BP Pulse Ox 06/24/17 08:03 97.9 F 60 20 146/65 H 06/24/17 06:56 98.2 F 64 18 157/70 H 97 06/24/17 06:48 70 14 06/23/17 20:41 61 122/55 L 06/23/17 20:40 98.3 F 61 16 96 Weight 166 lb 14.4 oz 06/23/17 06/24/17 06/25/17 06:59 06:59 06:59 Intake Total 1840 2910 Balance 1840 2910 - Physical Examination General/Neuro: alert & oriented x3 Neck: no JVD present Lungs: CTA Heart: RRR Abdomen: soft Extremities: other: (No edema) - Telemetry Telemetry Rhythm: SR - Labs Result Diagrams: 06/23/17 05:15 06/24/17 05:29 Troponin/CKMB CK-MB (CK-2) 5.2 ng/mL (0-6.6) 06/13/17 15:35 Troponin I 1.180 ng/mL (< 0.028) H* 06/19/17 05:10 - Assessment/Plan 1. NSTEMI - S/p Cardiac cath on 06/23/17, found to have severe 3V CAD with medical treatment only. Asymptomatic; Stable with BBlocker; no ASA due to possible GI bleed; No MONTY or ARE due to CKD. 2. HTN - stable with current medication; cont. monitor 3. MADY on CKD - Cr 1.51 today from 1.6 today; 4. Anemia - Hx of duodenal ulcer in the past; cont. monitor; 5. AAA - cont. monitor any symptoms; Possible CT ABD in future for further eval 6. PNA & Bilat Pleural effusion - Thoracentesis with 1400ml out on 06/17/17; on Antibiotic IVs; managed by PCP and mobile lab technician 7. Hyperlipidemia - On Zocor 40mg 8. PVD - stable; cont. monitor MAR reviewed * normal EGD and mild Rt colon iverticulosis by colonoscopy on 06/21/17 Review of Systems - Review of Systems Constitutional: reports: no symptoms reported EENTM: reports: no symptoms reported Respiratory: reports: no symptoms reported Cardiac (ROS): reports: no symptoms reported ABD/GI: reports: no symptoms reported : reports: no symptoms reported Musculoskeletal: reports: no symptoms reported <Cynthia Dickerson - Last Filed: 06/24/17 08:48> Cardiology Progress Note - Objective Vital Signs Temp Pulse Resp BP BP Pulse Ox 06/24/17 08:24 146/65 H 06/24/17 08:23 60 146/65 H 06/24/17 08:03 97.9 F 60 20 146/65 H 06/24/17 06:56 98.2 F 64 18 157/70 H 97 06/24/17 06:48 70 14 Weight 166 lb 14.4 oz 06/23/17 06/24/17 06/25/17 06:59 06:59 06:59 Intake Total 1840 2910 Balance 1840 2910 - Labs Result Diagrams: 06/23/17 05:15 06/24/17 05:29 Troponin/CKMB CK-MB (CK-2) 5.2 ng/mL (0-6.6) 06/13/17 15:35 Troponin I 1.180 ng/mL (< 0.028) H* 06/19/17 05:10 - Assessment/Plan Pt. seen and eval. by me. I agree with the A/P by the LAW OFFICE MANAGER. Exam: bilat. rales, vol. overload. RRR. Pt. has decided to be DNR. He has multiple medical problems. His LAD is patent without significant stenosis. The other arteries likely are chronically stenosed. His renal function appears to have improved but this may be due to dilution with the increased fluid that he has received oveer the last few days. I will give a dose of IV lasix and see how he responds. Once he is stable then he could be d/c'd to home. I will also add nitrates for arterial vasodilatation and to help control the HTN. He has a severe decr. in his LV syst. fx. but is not a candidate for MONTY-I or ARB's due to his decr. renal fx. Medical management only.
[2017-06-24] MEDS: predniSONE 20 MG TAB PO SCH (08:23)
[2017-06-24] MEDS: hydrALAZINE 25 MG TAB PO SCH ×2 (08:23→21:14)
[2017-06-24] MEDS: Amlodipine 5 MG TAB PO SCH (08:23)
[2017-06-24] MEDS: Carvedilol 6.25 MG TAB PO SCH ×2 (08:24→18:29)
[2017-06-24] MEDS: Furosemide 40 MG/4 ML VIAL SLOW IVP SCH (10:29)
[2017-06-24] MEDS: Isosorbide Dinitrate 5 MG TAB PO SCH ×2 (10:29→21:20)
[2017-06-24] MEDS: Milk Of Magnesia 30 ML UDCUP PO SCH ×2 (12:47→13:18)
[2017-06-24] MEDS: Sodium Bicarbonate Tab 325 MG TAB PO SCH ×3 (12:48→21:13)
[2017-06-24 15:42] VITALS: BMI 25.3
[2017-06-24] MEDS: Atorvastatin Calcium 20 MG TAB PO SCH (21:13)
[2017-06-25 05:22] LABS: Anion Gap 12 mmol/L (10-20); BUN (Urea Nitrogen) 50 mg/dL (8.4-25.7); Calc. Creatinine Clearance 36 mL/min (70-130); Calcium 9.1 mg/dL (7.8-10.44); Carbon Dioxide 23 mmol/L (23-31); Chloride 109 mmol/L (98-107); Estimated GFR-MDRD 43; Glucose 89 mg/dL (83-110); Potassium 4.7 mmol/L (3.5-5.1); Sodium 139 mmol/L (136-145)
[2017-06-25] MEDS: Milk Of Magnesia 30 ML UDCUP PO SCH ×2 (08:02→09:21)
[2017-06-25] MEDS: Sodium Bicarbonate Tab 325 MG TAB PO SCH (09:21)
[2017-06-25] MEDS: hydrALAZINE 25 MG TAB PO SCH (09:21)
[2017-06-25] MEDS: Amlodipine 5 MG TAB PO SCH (09:22)
[2017-06-25] MEDS: predniSONE 20 MG TAB PO SCH (09:22)
[2017-06-25] MEDS: Isosorbide Dinitrate 5 MG TAB PO SCH (09:22)
[2017-06-25] MEDS: Furosemide 40 MG/4 ML VIAL SLOW IVP SCH (09:23)
[2017-06-25] MEDS: Carvedilol 6.25 MG TAB PO SCH (09:23)
[2017-06-25 12:06] VITALS: BP 141/54; TEMP 98.6
--- NOTE | 2017-06-26 14:20 | DIS ---
DATE OF ADMISSION: 06/13/2017 DATE OF DISCHARGE: 06/25/2017 ADMITTING DIAGNOSES: 1. Non-ST elevation acute myocardial infarction. 2. Reactive airway disease. 3. Severe hyperkalemia. 4. Severe anemia, acute kidney injury. 5. Hypertension. 6. Right pleural effusion, rule out pneumonia. 7. Chronic kidney disease stage 3. FINAL DIAGNOSES: 1. Severe three-vessel coronary artery disease, not a candidate for surgery. 2. Non-ST elevation myocardial infarction. 3. Severe hyperkalemia, improved. 4. Chronic kidney disease stage 3. 5. Acute congestive heart failure, improved. 6. Severe decrease in left ventricular function with ejection fraction of 20%-25%. 7. Possible pneumonia. 8. Chronic anemia. No evidence of acute gastrointestinal bleeding. 9. Peripheral vascular disease. BRIEF SUMMARY OF HOSPITAL COURSE: Mr. Russell is an 87-year-old male came because of short ness of breath and chest pain 2 days prior to that the patient was found to have elevated troponin I, suggestive of a non-STEMI. The patient was seen by cardiology, who suggested patient has abnormal k idney function with severe hyperkalemia, also severe anemia. The patient desires to wait until the p atient is stabilized for further evaluation. Nephrology consult done regarding hyperkalemia. Aguilar khoury was given Kayexalate after which his potassium has improved. Initially, it was 6.8, then came down to 5.5, and then 4.6. A renal function also stabilized. His creatinine improved from 2.35 to 1.5. The patient was definitely anemic on admission, hemoglobin was 6, but no evidence of GI bleeding. H e was transfused and after that it went up to 10 grams. GI consultation was done in view of the anem ia. The patient was seen by Dr. Otero. His impression was the patient had severe anemia, but no ove rt bleeding. We suggested to continue to monitor. Iron studies improved on proton pump inhibitor. Later on, patient underwent colonoscopy. It did not reveal any evidence of GI bleeding. The patient continued to be monitored, and his renal function improved. His potassium was corrected and his ane taqueria remained stable. Pulmonary consult was done in view of his pleural effusion and it was thought t o be due to his CHF, so the patient was started on diuretics after which his shortness of breath impr maribel. improved. Echocardiogram showed decreased LV function with ejection fraction of 20%-25% . The patient underwent coronary angiogram, which showed severe triple vessel disease and the cardio logist felt the patient is not a candidate for any kind of surgery suggested medical management. The patient is doing well and he is stable, so he is being discharged home. At the time of discharge, h e was stable. His vital signs were stable. Lungs clear. Abdomen is soft and nontender. Bowel soun ds present. DISCHARGE MEDICATIONS: Include simvastatin 40 mg daily, aspirin 81 mg daily, hydralazine 25 mg b.i.d ., multivitamin daily, tramadol p.r.n., Protonix 40 mg daily, amlodipine 5 mg daily, Coreg 12.5 b.i.d ., furosemide 40 mg daily, isosorbide 5 mg b.i.d., Milk of Magnesia p.r.n., sodium bicarbonate 975 t. i.d., and albuterol inhaler p.r.n. FOLLOWUP: The patient will come for followup in 2 weeks.
== END 2017-06-25 12:28 | disposition home or self-care (01) | DRG 280 ==
LOC: ERS 14:19 → CCU 19:00 → 2SE 06-16 11:36
PROVIDERS: ADMIT Internal Medicine; ATTEND Internal Medicine
PROC: 30233N1 Transfusion of Nonautologous Red Blood Cells into Peripheral Vein, Percutaneous Approach (ICD-10-PCS; 2017-06-13)
PROC: 0W993ZX Drainage of Right Pleural Cavity, Percutaneous Approach, Diagnostic (ICD-10-PCS; principal; 2017-06-18)
PROC: 0DB98ZX Excision of Duodenum, Via Natural or Artificial Opening Endoscopic, Diagnostic (ICD-10-PCS; 2017-06-20)
PROC: 0DB78ZX Excision of Stomach, Pylorus, Via Natural or Artificial Opening Endoscopic, Diagnostic (ICD-10-PCS; 2017-06-20)
PROC: 0DJD8ZZ Inspection of Lower Intestinal Tract, Via Natural or Artificial Opening Endoscopic (ICD-10-PCS; 2017-06-21)
PROC: B2111ZZ Fluoroscopy of Multiple Coronary Arteries using Low Osmolar Contrast (ICD-10-PCS; 2017-06-23)
DX: I21.A1 Myocardial infarction type 2 (principal); I50.43 Acute on chronic combined systolic (congestive) and diastolic (congestive) heart failure; J96.90 Respiratory failure, unspecified, unspecified whether with hypoxia or hypercapnia; J90 Pleural effusion, not elsewhere classified; N17.9 Acute kidney failure, unspecified; E87.2 Acidosis; I13.0 Hypertensive heart and chronic kidney disease with heart failure and stage 1 through stage 4 chronic kidney disease, or unspecified chronic kidney disease; E87.5 Hyperkalemia; Z66 Do not resuscitate; N18.3 Chronic kidney disease, stage 3 (moderate); K57.90 Diverticulosis of intestine, part unspecified, without perforation or abscess without bleeding; D50.9 Iron deficiency anemia, unspecified; K29.70 Gastritis, unspecified, without bleeding; K29.80 Duodenitis without bleeding; I25.10 Atherosclerotic heart disease of native coronary artery without angina pectoris; J44.9 Chronic obstructive pulmonary disease, unspecified; Z87.891 Personal history of nicotine dependence; I71.4 Abdominal aortic aneurysm, without rupture; I73.9 Peripheral vascular disease, unspecified; E78.5 Hyperlipidemia, unspecified
CPT/HCPCS: 36415; 36430; 71045; 71250; 80048; 80053; 82150; 82553; 82728; 82945; 83540; 83550; 83605; 83615; 83880; 83986; 84157; 84478; 84484; 85014; 85018; 85025; 85610; 86850; 86900; 86901; 87040; 87070; 87116; 87149; 87205; 87206; 87804; 88112; 88305; 88312; 88313; 89051; 93005; 93306; 93454; 93798; 94640; 94760; 96365; 96375; A4216; C1769; C9113; J0456; J0696; J1642; J1644; J1940; J2704; J2920; J2930; J3475; J7050; J7506; J7620; P9016

== ENCOUNTER 2017-08-13 14:08 | Inpatient (IN) | payer MEDICARE, MEDICAID ==
[2017-08-13] MEDS ORDERED: Acetaminophen 500 MG TAB ONE (14:29)
[2017-08-13 14:59] LABS: Hemoglobin 10.4 g/dL (14.0-18.0); Mean Corpuscular HGB CONC 33.6 g/dL (32.0-36.0); Mean Corpuscular Hemoglobin 28.8 pg (27.0-31.0); Mean Corpuscular Volume 85.5 fl (80.0-94.0); Mean Platelet Volume 8.1 fL (7.4-10.4); Platelet Count 259 thou/uL (130-400); RBC Distribution Width 17.3 % (11.5-14.5); Red Blood Cell (RBC) Count 3.63 mill/uL (4.70-6.10); White Blood Cell (WBC) Count 10.8 thou/uL (4.8-10.8)
--- NOTE | 2017-08-13 15:05 | RAD ---
PORTABLE CHEST 1 VIEW: Date: 08/13/17 Time: 1419 hours HISTORY: Cough. Chest pain. FINDINGS: Comparison made with exam of 06/17/17. A small right pleural effusion is again noted. The heart size is enlarged, but stable. No pacheco pulmo nary edema is identified. IMPRESSION: Stable right pleural effusion since 06/17/17. POS: VERO
[2017-08-13] MEDS ORDERED: Azithromycin 500 MG VIAL ONE (15:08)
[2017-08-13 15:16] LABS: ALT (SGPT) 28 U/L (8-55); AST (SGOT) 31 U/L (5-34); Albumin 4.3 g/dL (3.4-4.8); Alkaline Phosphatase 65 U/L (40-150); Anion Gap 17 mmol/L (10-20); BUN (Urea Nitrogen) 41 mg/dL (8.4-25.7); Bilirubin, Total 0.5 mg/dL (0.2-1.2); Calc. Creatinine Clearance 0 mL/min (70-130); Calcium 10.1 mg/dL (7.8-10.44); Carbon Dioxide 14 mmol/L (23-31); Chloride 105 mmol/L (98-107); Estimated GFR-MDRD 31; Globulin 3.9 g/dL (2.4-3.5); Glucose 119 mg/dL (83-110); Protein, Total 8.2 g/dL (5.8-8.1); Sodium 129 mmol/L (136-145)
[2017-08-13 15:19] LABS: Potassium 6.8 mmol/L (3.5-5.1)
[2017-08-13 15:20] LABS: CKMB 2.1 ng/mL (0-6.6); Troponin I 0.015 ng/mL (< 0.028)
[2017-08-13 15:27] LABS: Bilirubin Negative (Negative); Blood, Urine Negative (Negative); Clarity CLEAR (Clear); Glucose, Urine (Dipstick) Negative (Negative); Leukocyte Negative (Negative); Nitrite Negative (Negative); Protein, Urine (Dipstick) 30 mg/dL (Neg-Trace); Specific Gravity, Urine 1.012 (1.002-1.036); Urobilinogen 0.2 mg/dL (0.2-1.0)
[2017-08-13 15:28] LABS: Anisocytosis SLIGHT = 6-15 cells (100X) (0-5/hpf); Band 4 % (5-11); Lymphocytes 8 % (21-51); MDiff Complete? YES; Monocytes 5 % (0-10); Neutrophil 83 % (42-75); Ovalocytes SLIGHT = 2-5 cells (100X) (0-1/hpf); PLT Morphology Comment Appears Adequate
[2017-08-13 15:29] LABS: Bacteria/HPF None Seen HPF (None Seen); Hyaline Casts/LPF 0-3 HYALINE CAST LPF (0-3 Hyaline); RBC/HPF 0-3 HPF (0-3); Squamous Epithelial None Seen HPF (0-3); WBC/HPF None Seen HPF (0-3)
[2017-08-13] MEDS ORDERED: Albuterol Sulfate 2.5 mg/3 ml Neb ONE (17:06)
[2017-08-13] MEDS ORDERED: Albuterol Sulfate 2.5 mg/0.5 ml Neb ONE (17:08)
[2017-08-13] MEDS ORDERED: Calcium Chloride 1 GM/10 ML Abboject SYRINGE ONE (17:18)
[2017-08-13] MEDS ORDERED: Sodium Bicarb 50 MEQ/50 ML Abboject 8.4% SYRINGE ONE (17:18)
[2017-08-13] MEDS ORDERED: Insulin Regular 300 UNITS/3 ML VIAL ONE (17:18)
[2017-08-13] MEDS ORDERED: Dextrose 50% Abboject 50 ML SYRINGE ONE (17:18)
[2017-08-13] MEDS ORDERED: Acetaminophen 325 MG TAB PO PRN (19:14)
[2017-08-13] MEDS ORDERED: Carvedilol 25 MG TAB PO SCH (20:30)
[2017-08-13 20:50] LABS: Anion Gap 17 mmol/L (10-20); BUN (Urea Nitrogen) 41 mg/dL (8.4-25.7); Calc. Creatinine Clearance 0 mL/min (70-130); Calcium 10.6 mg/dL (7.8-10.44); Carbon Dioxide 17 mmol/L (23-31); Chloride 107 mmol/L (98-107); Estimated GFR-MDRD 28; Glucose 116 mg/dL (83-110); Potassium 5.2 mmol/L (3.5-5.1); Sodium 136 mmol/L (136-145)
[2017-08-13] MEDS: hydrALAZINE 25 MG TAB PO SCH (21:24)
[2017-08-13 21:29] LABS: Troponin I 0.039 ng/mL (< 0.028)
[2017-08-14 01:16] VITALS: BMI 22.8
[2017-08-14 06:09] LABS: Anion Gap 14 mmol/L (10-20); BUN (Urea Nitrogen) 44 mg/dL (8.4-25.7); Calc. Creatinine Clearance 23 mL/min (70-130); Calcium 10.3 mg/dL (7.8-10.44); Carbon Dioxide 21 mmol/L (23-31); Chloride 109 mmol/L (98-107); Estimated GFR-MDRD 29; Glucose 103 mg/dL (83-110); Potassium 5.5 mmol/L (3.5-5.1)
[2017-08-14 06:12] LABS: Troponin I 0.034 ng/mL (< 0.028)
[2017-08-14 06:16] LABS: Sodium 138 mmol/L (136-145)
[2017-08-14] MEDS ORDERED: Prevnar 13-Val Conj/PF 0.5 ML SYRINGE IM ONE (09:00)
--- NOTE | 2017-08-14 09:00 | HP ---
DATE OF ADMISSION: 08/13/2017 CHIEF COMPLAINT: Chest pain, shortness of breath, cough, weakness. HISTORY OF PRESENT ILLNESS: Mr. Russell is an 87-year-old -[place] male with past medical h istory of chronic kidney disease stage 3, and coronary artery disease, triple vessel, came because of chest pain and nonproductive cough started today. Pain is sharp in nature as well as some shortness of breath. No diaphoresis. No nausea or vomiting. Cough is nonproductive. No fevers. The patien t's states the patient has not been taking fluids very well, eats normally. Does not take any m edications properly. No headache, no dizziness, but feeling weak. The patient was brought to the em ergency room where he was thought to have pneumonia initially with pleural effusion on the right side , but later on in the ER, patient realized patient has hyperkalemia with acute kidney injury. The pa tient received calcium chloride and bicarbonate, as well as insulin and glucose, also received a dose of Kayexalate. EKG showed evidence of hyperkalemia with hyperacute T-waves. The patient is admitte d for further evaluation and management. PAST MEDICAL HISTORY: 1. Triple vessel coronary artery disease, not a candidate for CABG. 2. Status post [id number] acute VT, early this year in May. 3. Reactive airway disease. 4. History of severe hyperkalemia. 5. Chronic anemia. 6. Hypertension. 7. Right pleural effusion. 8. Chronic kidney disease stage 3. 9. Peripheral vascular disease. 10. History of CHF, decreased LV function with ejection fraction of 20%, echo done this year in [facility]. PAST SURGICAL HISTORY: Nothing significant. CURRENT MEDICATIONS: The patient is on aspirin 81 mg daily, hydralazine 25 mg b.i.d., multivitamin d aily, simvastatin 40 mg daily, tramadol p.r.n., Protonix 40 mg daily, amlodipine 5 mg daily, Coreg 12 .5 b.i.d., Lasix 20 mg daily, isosorbide 5 mg b.i.d., milk of magnesia p.r.n., albuterol inhaler p.r. n. FAMILY HISTORY: Nothing of interest. SOCIAL HISTORY: The patient lives with family. No history of alcohol and smokes 1 pack a day. REVIEW OF SYSTEMS: Cardiovascular: Has chest pain, shortness of breath. Respiratory: Has cough, n o fever. Gastrointestinal: No nausea, vomiting, no abdominal pain. Genitourinary: No dysuria. Ce ntral nervous system: No headache, dizziness. PHYSICAL EXAMINATION: GENERAL: The patient is alert, awake, oriented x3. VITAL SIGNS: Temperature 100, respirations 27, blood pressure 190/69, pulse 122 initially, came down to 99. NECK: Supple. No JVD. LUNGS: Bilateral air entry present, rhonchi present bilaterally. HEART: S1, S2 regular. ABDOMEN: Soft, no distention, no tenderness. Normal bowel sounds. RECTAL: Deferred. CENTRAL NERVOUS SYSTEM: The patient is alert, awake, oriented x3. Motor system power 4/5 in all ext remities. Deep tendon reflexes 2+ bilaterally. Plantar downgoing. Sensory intact. LABORATORY AND X-RAY FINDINGS: CBC shows WBC of 10.8, hemoglobin 10, hematocrit 31, platelets 259. Metabolic panel: Sodium 129, potassium 6.8, chloride 105, CO2 of 14, BUN 41, creatinine 2, glucose 1 19. BNP was 377, CK-MB 2.1, troponin I 0.015. Urinalysis negative. Chest x-ray shows right pleural effusion small, no CHF. ASSESSMENT: 1. Severe hyperkalemia. 2. Acute kidney injury. 3. Weakness, generalized. 4. Questionable pneumonia. 5. Possible bronchitis. 6. Reactive airway disease. 7. Chest pain, rule out myocardial infarction. 8. Hypertension. 9. Chronic right pleural effusion. 10. Triple vessel coronary artery disease, not a candidate for surgery. PLAN: 1. Vital signs q.4 hours. 2. Activity: As tolerated. 3. Allergies: NKDA. 4. Kayexalate 15 grams p.o. 5. Hep-Lock. 6. Continue home medications. 7. Nephrology consult. 8. DuoNebs q.i.d. 9. Troponin I q.6 hours x2 and get basic metabolic panel now and in the a.m.
[2017-08-14] MEDS ORDERED: Milk Of Magnesia 30 ML UDCUP PO SCH (10:15)
[2017-08-14] MEDS ORDERED: Sodium Chloride 0.45% 1,000 ML IV SCH (10:15)
[2017-08-14] MEDS: cefTRIAXone\\ROCEPHIN 1 GM, Syringe 0.4 ML in Sterile Water 9.6 ML SLOW IVP SCH (10:20)
[2017-08-14] MEDS: hydrALAZINE 25 MG TAB PO SCH ×2 (10:21→20:27)
[2017-08-14] MEDS: Carvedilol 25 MG TAB PO SCH ×2 (10:21→17:50)
[2017-08-14] MEDS: Amlodipine 5 MG TAB PO SCH (10:22)
--- NOTE | 2017-08-14 10:48 | RAD ---
PA AND LATERAL VIEWS OF CHEST: Date: 08/14/17 HISTORY: Pneumonia. FINDINGS: Comparison made with exam from previous day. The heart size is stable. A right pleural effusion with adjacent consolidation/atelectatic change is again noted. The left lung is clear. IMPRESSION: Stable exam. POS: MIKE
[2017-08-14] MEDS ORDERED: traMADol HCl 50 MG TAB PO PRN (10:58)
--- NOTE | 2017-08-14 12:20 | CON ---
NEPHROLOGY CONSULTATION NOTE DATE OF CONSULTATION: 08/14/2017 REASON FOR CONSULTATION: Hyperkalemia. HISTORY OF PRESENT ILLNESS: This is a well-known 87-year-old gentleman with a history of CKD stage 3 and 4, who presented to the hospital with chest pain and shortness of breath. The patient was noted to have a low bicarbonate as well as a potassium of 5.2, which has increased to 5.5, so I was consul dia. The patient at this time denies nausea, vomiting or chest pain. The patient's creatinine in [facility] was 1.5 and has increased to 2.1. The patient denies any chest pain, orthopnea or PND. PAST MEDICAL HISTORY: Significant for CABG, [place], COPD, chronic kidney disease stage 3, hypertension, pleural effusion, peripheral vascular disease and congestive heart failure. HOME MEDICATIONS: List reviewed. HOSPITAL MEDICATIONS: List reviewed. SOCIAL HISTORY: No alcohol or drug use. REVIEW OF SYSTEMS: Fifteen-point review of systems was performed and negative except positives noted above. GENERAL: Weakness-. HEAD: Headache-. NECK: No swelling or lumps. NOSE: No epistaxis or discharge. EYES: No diplopia or pain. RESPIRATORY: Dyspnea-. CARDIOVASCULAR: Chest pain-. GASTROINTESTINAL: Nausea-. 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 MUSCULOSKELETAL: No joint pain. NEUROPSYCHIATIC SYSTEMS: No suicidal ideation. No ideation. SKIN: Denies any rash or ulcer. CONSTITUTIONAL: No fever or chills. PHYSICAL EXAMINATION: GENERAL: The patient is awake and alert. VITAL SIGNS: Afebrile, pulse 87, breathing at 16 and blood pressure 140/86. HEAD/NECK: Normocephalic. Atraumatic. EYES: EOMI. No deformity. EARS: Clear. No ulcers. NOSE: Intact. No lesions. MOUTH: Clear. No discharge. THROAT: Clear. No exudate. LUNGS: Clear. No crackles. CARDIAC: S1, S2. No rub. ABDOMEN: Benign. BS+. GENITALIA/RECTUM: Yee absent. BACK/EXTREMITIES: Edema 0+. Ulcer-. NEUROLOGICAL: The patient is intubated and has a Yee catheter present. SKIN: Rash-. Bruise-. LYMPHATICS: Edema-. Ulcer-. LABORATORY DATA: Showed creatinine is 5.5. ASSESSMENT AND RECOMMENDATIONS: 1. Acute kidney injury with chronic kidney disease, multifactorial. Agree with Kayexalate. We will recheck potassium again. 2. Hypertension, stable. 3. Metabolic acidosis. Agree with sodium bicarbonate. No indication for renal replacement therapy at this time. We will follow patient's creatinine closely.
[2017-08-14 13:32] LABS: Anion Gap 16 mmol/L (10-20); BUN (Urea Nitrogen) 44 mg/dL (8.4-25.7); Calc. Creatinine Clearance 23 mL/min (70-130); Calcium 9.5 mg/dL (7.8-10.44); Carbon Dioxide 15 mmol/L (23-31); Chloride 107 mmol/L (98-107); Estimated GFR-MDRD 29; Glucose 191 mg/dL (83-110); Potassium 4.9 mmol/L (3.5-5.1); Sodium 133 mmol/L (136-145)
[2017-08-14] MEDS: Sodium Bicarbonate Tab 325 MG TAB PO SCH ×2 (15:33→20:27)
[2017-08-14] MEDS: Azithromycin 250 MG, Admixture Fee 1 EACH in Sodium Chloride 0.9% 250 ML 250 ML IVPB SCH (15:33)
[2017-08-14] MEDS: Milk Of Magnesia 30 ML UDCUP PO SCH (20:27)
[2017-08-14] MEDS: Isosorbide Dinitrate 5 MG TAB PO SCH (20:27)
[2017-08-15 05:37] LABS: #Eosinphils 0.1 thou/uL (0.0-0.7); #Lymphocytes 1.5 thou/uL (1.20-3.40); #Monocytes 1.4 thou/uL (0.11-0.59); #Neutrophils 6.6 thou/uL (1.40-6.50); %Basophils 0.5 % (0.0-1.0); %Eosinophils 1.4 % (0.0-10.0); %Lymphocytes 15.5 % (21.0-51.0); %Monocytes 14.5 % (0.0-10.0); %Neutrophils 68.1 % (42.0-75.0); Hemoglobin 8.6 g/dL (14.0-18.0); Mean Corpuscular HGB CONC 32.8 g/dL (32.0-36.0); Mean Corpuscular Hemoglobin 28.5 pg (27.0-31.0); Mean Corpuscular Volume 86.9 fl (80.0-94.0); Mean Platelet Volume 7.8 fL (7.4-10.4); Platelet Count 229 thou/uL (130-400); RBC Distribution Width 17.8 % (11.5-14.5); Red Blood Cell (RBC) Count 3.01 mill/uL (4.70-6.10); White Blood Cell (WBC) Count 9.7 thou/uL (4.8-10.8)
[2017-08-15 05:57] LABS: Anion Gap 12 mmol/L (10-20); BUN (Urea Nitrogen) 41 mg/dL (8.4-25.7); Calc. Creatinine Clearance 27 mL/min (70-130); Carbon Dioxide 21 mmol/L (23-31); Chloride 107 mmol/L (98-107); Estimated GFR-MDRD 34; Glucose 95 mg/dL (83-110); Sodium 136 mmol/L (136-145)
[2017-08-15] MEDS: cefTRIAXone\\ROCEPHIN 1 GM, Syringe 0.4 ML in Sterile Water 9.6 ML SLOW IVP SCH (09:38)
[2017-08-15] MEDS: Sodium Bicarbonate Tab 325 MG TAB PO SCH ×3 (09:39→21:31)
[2017-08-15] MEDS: Isosorbide Dinitrate 5 MG TAB PO SCH ×2 (09:39→21:30)
[2017-08-15] MEDS: Atorvastatin Calcium 20 MG TAB PO SCH (09:39)
[2017-08-15] MEDS: Multivit, Therapeutic 1 TAB PO SCH (09:39)
[2017-08-15] MEDS: Milk Of Magnesia 30 ML UDCUP PO SCH ×2 (09:39→21:30)
[2017-08-15] MEDS: Amlodipine 5 MG TAB PO SCH (09:39)
[2017-08-15] MEDS: hydrALAZINE 25 MG TAB PO SCH ×2 (09:40→21:30)
[2017-08-15] MEDS: Carvedilol 25 MG TAB PO SCH ×2 (09:40→17:43)
--- NOTE | 2017-08-15 11:22 | PRG ---
DATE OF SERVICE: 08/15/2017 SUBJECTIVE: An 87-year-old gentleman being seen for acute kidney injury and hyperkalemia. The patie nt denies any nausea, vomiting or chest pain. PHYSICAL EXAMINATION: GENERAL: Patient is awake, alert. VITAL SIGNS: Afebrile, pulse 72, breathing 16, blood pressure 140/62. HEAD/NECK: Normocephalic. Atraumatic. EYES: EOMI. No deformity. EARS: Clear. No ulcers. NOSE: Intact. No lesions. MOUTH: Clear. No discharge. THROAT: Clear. No exudate. LUNGS: Clear. No crackles. CARDIAC: S1, S2. No rub. ABDOMEN: Benign. BS+. GENITALIA/RECTUM: Yee absent. BACK/EXTREMITIES: Edema 0+ Ulcer- NEUROLOGICAL: Alert and motor intact. SKIN: Rash- Bruise- LYMPHATICS: Edema- Ulcer- LABORATORY DATA: Show hemoglobin 8.6. ASSESSMENT AND RECOMMENDATIONS: 1. Acute kidney injury with chronic kidney disease stage 3, stable. 2. Hypertension, stable. 3. Anemia, stable. 4. Anemia of chronic kidney disease, stable. 5. Metabolic acidosis, improved. 6. Hyperkalemia, improved.
[2017-08-15] MEDS: Azithromycin 250 MG, Admixture Fee 1 EACH in Sodium Chloride 0.9% 250 ML 250 ML IVPB SCH (16:05)
[2017-08-16] MEDS: cefTRIAXone\\ROCEPHIN 1 GM, Syringe 0.4 ML in Sterile Water 9.6 ML SLOW IVP SCH (08:59)
[2017-08-16] MEDS: Amlodipine 5 MG TAB PO SCH (09:00)
[2017-08-16] MEDS: Sodium Bicarbonate Tab 325 MG TAB PO SCH ×3 (09:00→20:08)
[2017-08-16] MEDS: Isosorbide Dinitrate 5 MG TAB PO SCH ×2 (09:00→20:18)
[2017-08-16] MEDS: Atorvastatin Calcium 20 MG TAB PO SCH (09:00)
[2017-08-16] MEDS: Multivit, Therapeutic 1 TAB PO SCH (09:00)
[2017-08-16] MEDS: Carvedilol 25 MG TAB PO SCH ×2 (09:01→17:11)
[2017-08-16] MEDS: hydrALAZINE 25 MG TAB PO SCH ×2 (09:01→20:08)
[2017-08-16] MEDS: Milk Of Magnesia 30 ML UDCUP PO SCH ×2 (09:04→20:09)
[2017-08-16] MEDS: Azithromycin 250 MG, Admixture Fee 1 EACH in Sodium Chloride 0.9% 250 ML 250 ML IVPB SCH (17:10)
[2017-08-16] MEDS: Cefdinir 300 MG CAP PO SCH (20:08)
[2017-08-17 05:08] LABS: #Eosinphils 0.3 thou/uL (0.0-0.7); #Lymphocytes 1.6 thou/uL (1.20-3.40); #Monocytes 0.7 thou/uL (0.11-0.59); #Neutrophils 4.3 thou/uL (1.40-6.50); %Basophils 0.4 % (0.0-1.0); %Eosinophils 4.8 % (0.0-10.0); %Lymphocytes 22.3 % (21.0-51.0); %Monocytes 10.6 % (0.0-10.0); Hemoglobin 8.8 g/dL (14.0-18.0); Mean Corpuscular HGB CONC 32.5 g/dL (32.0-36.0); Mean Corpuscular Volume 89.4 fl (80.0-94.0); Mean Platelet Volume 8.2 fL (7.4-10.4); Platelet Count 262 thou/uL (130-400); RBC Distribution Width 17.5 % (11.5-14.5); Red Blood Cell (RBC) Count 3.02 mill/uL (4.70-6.10)
[2017-08-17 05:34] LABS: Anion Gap 11 mmol/L (10-20); Calc. Creatinine Clearance 24 mL/min (70-130); Calcium 9.1 mg/dL (7.8-10.44); Carbon Dioxide 24 mmol/L (23-31); Chloride 107 mmol/L (98-107); Estimated GFR-MDRD 31; Glucose 94 mg/dL (83-110); Potassium 4.5 mmol/L (3.5-5.1); Sodium 137 mmol/L (136-145)
[2017-08-17 06:30] LABS: BUN (Urea Nitrogen) 42 mg/dL (8.4-25.7)
[2017-08-17] MEDS: Sodium Bicarbonate Tab 325 MG TAB PO SCH ×2 (07:33→16:37)
[2017-08-17] MEDS: Multivit, Therapeutic 1 TAB PO SCH (07:33)
[2017-08-17] MEDS: Amlodipine 5 MG TAB PO SCH (07:33)
[2017-08-17] MEDS: hydrALAZINE 25 MG TAB PO SCH (07:34)
[2017-08-17] MEDS: Carvedilol 25 MG TAB PO SCH ×2 (07:34→16:35)
[2017-08-17] MEDS: Atorvastatin Calcium 20 MG TAB PO SCH (07:35)
[2017-08-17] MEDS: Cefdinir 300 MG CAP PO SCH ×2 (07:35→17:39)
[2017-08-17] MEDS: Milk Of Magnesia 30 ML UDCUP PO SCH (07:35)
[2017-08-17] MEDS: Isosorbide Dinitrate 5 MG TAB PO SCH (07:36)
[2017-08-17 08:22] VITALS: BP 121/58; TEMP 98.2
--- NOTE | 2017-08-18 11:51 | DIS ---
DATE OF ADMISSION: 08/13/2017 DATE OF DISCHARGE: 08/17/2017 ADMITTING DIAGNOSES: 1. Severe hyperkalemia. 2. Acute kidney injury. 3. Weakness, generalized. 4. Chest pain, rule out myocardial infarction. 5. Possible bronchitis. 6. Reactive airway disease. 7. Chronic right pleural effusion. 8. History of triple-vessel disease, not operable. FINAL DIAGNOSES: 1. Severe hyperkalemia, improved. 2. Acute kidney injury, improved. 3. Weakness, improved. 4. No pneumonia. 5. Possible bronchitis. 6. Chest pain. No evidence of acute myocardial infarction. 7. Hypertension, uncontrolled, improved. 8. Chronic right pleural effusion. 9. Triple-vessel disease. Not a candidate for coronary artery bypass grafting. BRIEF SUMMARY OF HOSPITAL COURSE: Mr. Russell is an 87-year-old male admitted because of c hest pain. The patient was found to have acute kidney injury with severe hyperkalemia with a potassi um of 6.8. The patient received calcium chloride as well as bicarbonate and glucose insulin in the E R and received a dose of Kayexalate. Eventually, his potassium came down and consult was done with epifanio vazquez. The patient was seen by Dr. Carrasco, who suggested to continue with Kayexalate and recheck potass ium. The patient also had metabolic acidosis and agreed with sodium bicarbonate. The patient was mo nitored in the next few days and his potassium improved; from 6.82 it came down to 4. Kidney functio n also improved. His creatinine improved from 2.6 to 1.9. The patient is tolerating diet very well . He is able to ambulate as well. His blood pressure initially was uncontrolled, but improved after wards. He had no symptoms and the patient was discharged. At the time of discharge, he was stable. His vital signs were stable. Lungs were clear. Heart sounds regular. Abdomen was soft, nontender. Bowel sounds present. DISCHARGE MEDICATIONS: Include simvastatin 40 mg daily, aspirin 81 mg daily, hydralazine 25 b.i.d., multivitamin daily, tramadol 50 q.i.d. p.r.n., Protonix 40 mg daily, amlodipine 5 mg daily, Coreg 12. 5 b.i.d., Lasix 40 mg daily, sodium bicarbonate 975 t.i.d., isosorbide 10 mg b.i.d. FOLLOWUP: The patient will come for followup in 2 weeks.
== END 2017-08-17 18:14 | disposition home or self-care (01) | DRG 683 ==
LOC: ERS 14:08 → ERHOLD 15:17 → 2NO 18:49 → T4-A 08-16 11:27
PROVIDERS: ADMIT Internal Medicine; ATTEND Internal Medicine
DX: I13.0 Hypertensive heart and chronic kidney disease with heart failure and stage 1 through stage 4 chronic kidney disease, or unspecified chronic kidney disease; E87.2 Acidosis; R07.89 Other chest pain; D63.1 Anemia in chronic kidney disease; N18.3 Chronic kidney disease, stage 3 (moderate); N17.9 Acute kidney failure, unspecified; I73.9 Peripheral vascular disease, unspecified; J44.9 Chronic obstructive pulmonary disease, unspecified; J90 Pleural effusion, not elsewhere classified; E87.5 Hyperkalemia; I25.2 Old myocardial infarction; I25.10 Atherosclerotic heart disease of native coronary artery without angina pectoris
CPT/HCPCS: 36415; 71045; 71046; 80048; 80053; 81003; 81015; 82553; 83605; 83880; 84484; 85025; 87040; 90471; 90670; 93005; 94640; 96361; 96365; 96375; 99406; A4216; G0009; J0456; J0696; J1815; J7050; J7611; J7620

== ENCOUNTER 2017-10-17 12:28 | Inpatient (IN) | payer MEDICARE, MEDICAID ==
[2017-10-17 13:02] LABS: #Basophils 0.1 thou/uL (0.0-0.2); #Eosinphils 0.2 thou/uL (0.0-0.7); #Lymphocytes 1.9 thou/uL (1.20-3.40); #Monocytes 0.6 thou/uL (0.11-0.59); #Neutrophils 4.2 thou/uL (1.40-6.50); %Basophils 0.9 % (0.0-1.0); %Eosinophils 2.3 % (0.0-10.0); %Lymphocytes 27.4 % (21.0-51.0); %Monocytes 8.8 % (0.0-10.0); %Neutrophils 60.6 % (42.0-75.0); Mean Corpuscular HGB CONC 30.8 g/dL (32.0-36.0); Mean Corpuscular Hemoglobin 23.4 pg (27.0-31.0); Mean Platelet Volume 7.6 fL (7.4-10.4); Platelet Count 335 thou/uL (130-400); RBC Distribution Width 18.5 % (11.5-14.5); Red Blood Cell (RBC) Count 2.56 mill/uL (4.70-6.10)
[2017-10-17 13:05] LABS: INR-International Normal Ratio 1.1; Prothrombin Time 14.8 SEC (12.0-14.7)
[2017-10-17 13:06] LABS: PTT 33.4 SEC (22.9-36.1)
[2017-10-17 13:13] LABS: ALT (SGPT) 39 U/L (8-55); AST (SGOT) 44 U/L (5-34); Albumin 3.6 g/dL (3.4-4.8); Alkaline Phosphatase 55 U/L (40-150); Anion Gap 14 mmol/L (10-20); BUN (Urea Nitrogen) 51 mg/dL (8.4-25.7); Bilirubin, Total 0.3 mg/dL (0.2-1.2); Calc. Creatinine Clearance 0 mL/min (70-130); Calcium 9.8 mg/dL (7.8-10.44); Carbon Dioxide 21 mmol/L (23-31); Chloride 108 mmol/L (98-107); Estimated GFR-MDRD 21; Globulin 3.5 g/dL (2.4-3.5); Glucose 108 mg/dL (83-110); Lipase 88 U/L (8-78); Potassium 5.8 mmol/L (3.5-5.1); Protein, Total 7.1 g/dL (5.8-8.1); Sodium 137 mmol/L (136-145)
[2017-10-17 13:15] LABS: CKMB 1.1 ng/mL (0-6.6); Troponin I Less than 0.010 ng/mL (< 0.028)
--- NOTE | 2017-10-17 14:00 | RAD ---
CHEST 1 VIEW: Date: 10/17/17 HISTORY: 87-year-old male with history of patient being unable to walk. COMPARISON: 08/14/17. FINDINGS: Moderate to large right-sided pleural effusion, certainly worsening when compared to the 08/14/17 christo dy. Heart size is normal. The left lung is clear. IMPRESSION: Enlarging right pleural effusion. Atherosclerosis of aorta with ectasia. Stable left chest. POS: VEROH
[2017-10-17] MEDS ORDERED: Acetaminophen 325 MG TAB PO PRN (15:42)
[2017-10-17] MEDS ORDERED: Ondansetron HCl/PF 4 MG/2 ML Vial IVP PRN (15:42)
[2017-10-17] MEDS ORDERED: Ondansetron ODT 4 MG TAB SL PRN (15:42)
[2017-10-17] MEDS ORDERED: Sodium Chloride 0.9% 1,000 ML IV SCH (15:42)
[2017-10-17] MEDS: Furosemide 20 MG/2 ML VIAL SLOW IVP SCH ×2 (17:05→21:25)
[2017-10-17] MEDS: Sodium Chloride 0.9% 1,000 ML IV SCH (17:05)
[2017-10-17 17:48] VITALS: BMI 21.8
[2017-10-17] MEDS ORDERED: Labetalol HCl 100 MG/20 ML VIAL SLOW IVP SCH (19:15)
[2017-10-18 05:42] LABS: Anion Gap 10 mmol/L (10-20); BUN (Urea Nitrogen) 50 mg/dL (8.4-25.7); Calc. Creatinine Clearance 20 mL/min (70-130); Calcium 9.5 mg/dL (7.8-10.44); Carbon Dioxide 20 mmol/L (23-31); Chloride 111 mmol/L (98-107); Estimated GFR-MDRD 25; Glucose 79 mg/dL (83-110); Potassium 5.2 mmol/L (3.5-5.1); Sodium 136 mmol/L (136-145)
[2017-10-18 05:57] LABS: #Basophils 0.1 thou/uL (0.0-0.2); #Eosinphils 0.3 thou/uL (0.0-0.7); #Lymphocytes 2.1 thou/uL (1.20-3.40); #Monocytes 0.9 thou/uL (0.11-0.59); #Neutrophils 3.2 thou/uL (1.40-6.50); %Basophils 1.6 % (0.0-1.0); %Eosinophils 4.8 % (0.0-10.0); %Monocytes 13.2 % (0.0-10.0); %Neutrophils 48.5 % (42.0-75.0); Hemoglobin 8.2 g/dL (14.0-18.0); Mean Corpuscular HGB CONC 30.5 g/dL (32.0-36.0); Mean Corpuscular Hemoglobin 24.9 pg (27.0-31.0); Mean Corpuscular Volume 81.9 fl (80.0-94.0); Mean Platelet Volume 7.9 fL (7.4-10.4); Platelet Count 312 thou/uL (130-400); RBC Distribution Width 18.7 % (11.5-14.5); Red Blood Cell (RBC) Count 3.27 mill/uL (4.70-6.10); White Blood Cell (WBC) Count 6.6 thou/uL (4.8-10.8)
[2017-10-18] MEDS: Sodium Chloride 0.9% 1,000 ML IV SCH ×2 (06:18→12:13)
[2017-10-18] MEDS ORDERED: Prevnar 13-Val Conj/PF 0.5 ML SYRINGE IM ONE (09:00)
[2017-10-18] MEDS ORDERED: hydrALAZINE 25 MG TAB PO SCH (10:30)
[2017-10-18] MEDS ORDERED: Amlodipine 5 MG TAB PO SCH (10:30)
[2017-10-18] MEDS ORDERED: Sodium Bicarbonate Tab 325 MG TAB PO SCH (10:30)
[2017-10-18] MEDS ORDERED: Carvedilol 6.25 MG TAB PO SCH (10:30)
[2017-10-18] MEDS ORDERED: Furosemide 20 MG/2 ML VIAL SLOW IVP SCH (15:30)
[2017-10-18] MEDS: Sodium Bicarbonate Tab 325 MG TAB PO SCH ×3 (15:54→22:21)
[2017-10-18] MEDS ORDERED: Temazepam 15 MG CAP PO SCH (21:15)
[2017-10-18] MEDS: Carvedilol 6.25 MG TAB PO SCH ×2 (21:19→22:24)
[2017-10-18] MEDS: Isosorbide Dinitrate 20 MG TAB PO SCH ×3 (21:19→22:22)
[2017-10-18] MEDS: Atorvastatin Calcium 20 MG TAB PO SCH ×2 (21:19→22:22)
[2017-10-18] MEDS: hydrALAZINE 25 MG TAB PO SCH (22:22)
[2017-10-19 04:37] LABS: #Basophils 0.1 thou/uL (0.0-0.2); #Eosinphils 0.4 thou/uL (0.0-0.7); #Neutrophils 5.5 thou/uL (1.40-6.50); %Basophils 0.9 % (0.0-1.0); %Monocytes 11.3 % (0.0-10.0); %Neutrophils 61.8 % (42.0-75.0); Hemoglobin 8.8 g/dL (14.0-18.0); Mean Corpuscular HGB CONC 31.9 g/dL (32.0-36.0); Mean Corpuscular Hemoglobin 26.6 pg (27.0-31.0); Mean Corpuscular Volume 83.3 fl (80.0-94.0); Mean Platelet Volume 7.9 fL (7.4-10.4); Platelet Count 304 thou/uL (130-400); RBC Distribution Width 19.1 % (11.5-14.5); Red Blood Cell (RBC) Count 3.29 mill/uL (4.70-6.10)
[2017-10-19 04:59] LABS: Anion Gap 14 mmol/L (10-20); BUN (Urea Nitrogen) 51 mg/dL (8.4-25.7); Calc. Creatinine Clearance 18 mL/min (70-130); Calcium 9.8 mg/dL (7.8-10.44); Carbon Dioxide 19 mmol/L (23-31); Chloride 108 mmol/L (98-107); Estimated GFR-MDRD 22; Glucose 100 mg/dL (83-110); Potassium 6.1 mmol/L (3.5-5.1); Sodium 135 mmol/L (136-145)
--- NOTE | 2017-10-19 07:57 | RAD ---
AP PORTABLE VIEW CHEST: DATE: 10/19/17. HISTORY: The patient is fluid overloaded. Right-sided pleural effusion. COMPARISON: Comparison is made to previous exam from 10/17/17. FINDINGS: AP view chest demonstrates possibly right lung hemidiaphragm interface compatible with a moderate to large right-sided pleural effusion. This was seen on the previous exam from 2 days earlier and has n ot significantly changed. There is an area of lucency along the right lateral thoracic space. This may represent a possible ri ght-sided pneumothorax. I do recommend repeat radiograph of the patient being in the left decubitus position and obtaining chest CT to further evaluate the right hemithorax. The left lung is well aerated. IMPRESSION: Continued right-sided pleural effusion with possible developed right-sided pneumothorax. Additional imaging including possible CT to confirm this may be of use. CODE T POS: MIKE
--- NOTE | 2017-10-19 08:03 | HP ---
DATE OF ADMISSION: 10/17/2017 REASON FOR ADMISSION/CHIEF COMPLAINT: Severe anemia, symptomatic. HISTORY OF PRESENT ILLNESS: Mr. Russell is an 87-year-old male with past medical history of chronic kidney disease, hypertension, triple-vessel coronary artery disease who was found to be anemic at the clinic. The patient had blood work done yesterday and hemoglobin was 6.4 g. So, in view of his anemia, the patient was asked to go to the emergency room, where he was evaluated and found to have hemoglobin of 6. He was also found to have acute kidney injury with elevated creatinine and also hyperkalemia. So, the patient had workup for transfusion and management of acute kidney injury. The patient had not been eating well, drinking well, has been feeling weak and dizzy, and unable to ambulate. No chest pain. No shortness of breath. PAST MEDICAL HISTORY: 1. Triple-vessel coronary artery disease, not a candidate for surgery. 2. Reactive airway disease. 3. History of chronic anemia. 4. Hypertension. 5. Right pleural effusion. 6. Chronic kidney disease, stage 3. 7. Peripheral vascular disease. 8. History of congestive heart failure with decreased ejection fraction of 20 %. PAST SURGICAL HISTORY: Nothing significant. CURRENT MEDICATIONS: The patient is on aspirin 81 mg daily, hydralazine 25 b.i.d., multivitamin daily, simvastatin 40 mg daily, tramadol 50 q.i.d. p.r.n., Protonix 40 mg daily, amlodipine 5 mg daily, Coreg 12.5, Lasix 40 mg, sodium bicarbonate t.i.d., isosorbide 10 mg daily. ALLERGIES: No known drug allergies. FAMILY HISTORY: Nothing of interest. SOCIAL HISTORY: The patient lives with family. No history of alcohol intake. Smokes one pack a day. REVIEW OF SYSTEMS: Cardiovascular: No chest pain. No shortness of breath. Respiratory: No fever or cough. Gastrointestinal: No nausea or vomiting. No abdominal pain. Genitourinary: No dysuria. Central Nervous System: Headache. Feels little dizzy. PHYSICAL EXAMINATION: GENERAL: The patient is alert, awake, oriented x3. VITAL SIGNS: Temperature 98, pulse 87, respirations 20, blood pressure 140/80. HEENT: Head is normocephalic, atraumatic. Pupils are equal and reactive. Nasopharynx is pale and dry. Hard and soft palate, no lesions. SKIN: Skin turgor decreased. NECK: Supple. No JVD. LUNGS: Bilateral air entry. No rales, no rhonchi. HEART: S1, S2 regular. ABDOMEN: Soft. No distention, no tenderness. Normal bowel sounds. RECTAL: Deferred. CENTRAL NERVOUS SYSTEM: No focal deficits. EXTREMITIES: 2+ pitting edema. LABORATORY AND X-RAY FINDINGS: CBC shows WBC 7, hemoglobin 6, hematocrit 19, platelets 335. Metabolic panel: Sodium 137, potassium 5.8, chloride 108, CO2 of 21, urea nitrogen 15, creatinine 0.8, glucose 164. Prothrombin time 14, INR 1.1. Chest x-ray shows right pleural effusion, which is worsening. ASSESSMENT: 1. Severe anemia, symptomatic. 2. Acute kidney injury, on chronic kidney disease, stage 3. 3. Right pleural effusion, worsening. 4. Coronary artery disease, triple vessel, not a candidate for coronary artery bypass grafting. 5. Hyperkalemia. 6. Hypertension. 7. Reactive airway disease. PLAN: 1. Vital signs q.4 hours. 2. Activity as tolerated. 3. Allergies: No known drug allergies. 4. Hep-Lock. 5. Transfuse 2 units of packed red blood cells. 6. Continue his home medications. 7. Diet: Cardiac and renal. 8. CBC and base met in the morning. 9. We will monitor right pleural effusion. MTDD
[2017-10-19] MEDS: Sodium Bicarbonate Tab 325 MG TAB PO SCH ×3 (08:22→20:52)
[2017-10-19] MEDS: Aspirin 81 mg Enteric Coated Tablet PO SCH (08:22)
[2017-10-19] MEDS ORDERED: Amlodipine 5 MG TAB PO SCH (09:00)
[2017-10-19] MEDS: Sodium Chloride 0.9% 1,000 ML IV SCH ×2 (11:06→20:56)
[2017-10-19] MEDS: hydrALAZINE 25 MG TAB PO SCH ×2 (12:25→20:52)
[2017-10-19] MEDS: Carvedilol 6.25 MG TAB PO SCH ×2 (12:25→20:52)
[2017-10-19] MEDS: Isosorbide Dinitrate 20 MG TAB PO SCH (20:51)
[2017-10-19] MEDS: Atorvastatin Calcium 20 MG TAB PO SCH (20:51)
[2017-10-20 05:29] LABS: #Eosinphils 0.4 thou/uL (0.0-0.7); #Monocytes 0.7 thou/uL (0.11-0.59); %Basophils 0.7 % (0.0-1.0); %Eosinophils 6.4 % (0.0-10.0); %Lymphocytes 32.9 % (21.0-51.0); Hemoglobin 8.1 g/dL (14.0-18.0); Mean Corpuscular HGB CONC 31.3 g/dL (32.0-36.0); Mean Corpuscular Hemoglobin 25.8 pg (27.0-31.0); Mean Corpuscular Volume 82.5 fl (80.0-94.0); Mean Platelet Volume 7.9 fL (7.4-10.4); Platelet Count 260 thou/uL (130-400); RBC Distribution Width 19.6 % (11.5-14.5); Red Blood Cell (RBC) Count 3.13 mill/uL (4.70-6.10); White Blood Cell (WBC) Count 6.2 thou/uL (4.8-10.8)
[2017-10-20 05:47] LABS: Anion Gap 9 mmol/L (10-20); BUN (Urea Nitrogen) 51 mg/dL (8.4-25.7); Calc. Creatinine Clearance 19 mL/min (70-130); Calcium 8.9 mg/dL (7.8-10.44); Carbon Dioxide 22 mmol/L (23-31); Chloride 111 mmol/L (98-107); Estimated GFR-MDRD 25; Glucose 82 mg/dL (83-110); Potassium 4.6 mmol/L (3.5-5.1); Sodium 137 mmol/L (136-145)
[2017-10-20 07:34] VITALS: BP 134/56; TEMP 97.8
[2017-10-20] MEDS: Isosorbide Dinitrate 20 MG TAB PO SCH (07:43)
[2017-10-20] MEDS: Sodium Bicarbonate Tab 325 MG TAB PO SCH ×2 (07:43→14:54)
[2017-10-20] MEDS: Carvedilol 6.25 MG TAB PO SCH (07:43)
[2017-10-20] MEDS: hydrALAZINE 25 MG TAB PO SCH (07:44)
[2017-10-20] MEDS: Aspirin 81 mg Enteric Coated Tablet PO SCH (07:44)
--- NOTE | 2017-10-21 13:34 | DIS ---
ADMITTING DIAGNOSES: 1. Severe anemia, symptomatic. 2. Acute kidney injury/chronic kidney disease stage 3. 3. Right pleural effusion. 4. Coronary artery disease, triple vessel. 5. Hyperkalemia. 6. Hypertension. 7. Reactive airway disease. FINAL DIAGNOSES: 1. Severe anemia, symptomatic, status post transfusion. 2. Acute kidney injury, improved. 3. Chronic kidney disease stage 3. 4. Right pleural effusion. 5. Coronary artery disease. 6. Hyperkalemia, corrected. 7. Hypertension. BRIEF SUMMARY OF HOSPITAL COURSE: Mr. Russell is an 87-year-old male admitted because of w eakness, dizziness. The patient was found to be severely anemic with hemoglobin of 6.4. The patient has history of chronic anemia. So he was transfused with packed red blood cells and hemoglobin impr maribel to 8.2, stayed around 8.2 to 8.8. The patient was also found to have acute kidney injury with a BUN of 15 and creatinine 2.89. He was given fluids after which creatinine came down to 2.4. The pa tient was feeling much better. He is able to ambulate without dizziness, without weakness. With im provement, the patient was discharged. At the time of discharge he was stable. Vitals stable. Lung s were clear. Heart sounds regular. Abdomen soft. Bowel sounds present. DISCHARGE MEDICATIONS: Include simvastatin 40 mg daily, hydralazine 25 b.i.d., multivitamin daily, P rotonix 40 mg daily, Coreg 12.5 b.i.d., sodium bicarbonate 19.5 t.i.d., isosorbide dinitrate 10 mg b. i.d., aspirin 81 mg daily. DISCHARGE INSTRUCTIONS: The patient will come for followup in 2 weeks.
== END 2017-10-20 15:29 | disposition home or self-care (01) | DRG 812 ==
LOC: ERS 12:28 → T4-A 15:38
PROVIDERS: ADMIT Internal Medicine; ATTEND Internal Medicine
DX: D64.9 Anemia, unspecified (principal); N17.9 Acute kidney failure, unspecified; J90 Pleural effusion, not elsewhere classified; N18.3 Chronic kidney disease, stage 3 (moderate); I25.10 Atherosclerotic heart disease of native coronary artery without angina pectoris; E87.5 Hyperkalemia; I12.9 Hypertensive chronic kidney disease with stage 1 through stage 4 chronic kidney disease, or unspecified chronic kidney disease; Z87.891 Personal history of nicotine dependence; I73.9 Peripheral vascular disease, unspecified; E78.5 Hyperlipidemia, unspecified
CPT/HCPCS: 36415; 36430; 71045; 80048; 80053; 82553; 83690; 84484; 85025; 85610; 85730; 86850; 86900; 86901; 93005; A4216; J1940; P9016

== ENCOUNTER 2017-10-26 15:05 | Inpatient (IN) | payer MEDICARE, MEDICAID ==
[2017-10-26 15:54] LABS: #Eosinphils 0.3 thou/uL (0.0-0.7); #Lymphocytes 2.1 thou/uL (1.20-3.40); #Monocytes 0.9 thou/uL (0.11-0.59); %Basophils 0.7 % (0.0-1.0); %Eosinophils 3.7 % (0.0-10.0); %Lymphocytes 28.7 % (21.0-51.0); %Monocytes 11.7 % (0.0-10.0); %Neutrophils 55.3 % (42.0-75.0); Hemoglobin 6.2 g/dL (14.0-18.0); Mean Corpuscular HGB CONC 32.7 g/dL (32.0-36.0); Mean Corpuscular Hemoglobin 26.2 pg (27.0-31.0); Mean Corpuscular Volume 80.2 fl (80.0-94.0); Mean Platelet Volume 7.7 fL (7.4-10.4); Platelet Count 275 thou/uL (130-400); RBC Distribution Width 19.5 % (11.5-14.5); Red Blood Cell (RBC) Count 2.35 mill/uL (4.70-6.10); White Blood Cell (WBC) Count 7.3 thou/uL (4.8-10.8)
[2017-10-26 16:15] LABS: ALT (SGPT) 27 U/L (8-55); AST (SGOT) 36 U/L (5-34); Albumin 3.7 g/dL (3.4-4.8); Alkaline Phosphatase 54 U/L (40-150); Anion Gap 8 mmol/L (10-20); BUN (Urea Nitrogen) 48 mg/dL (8.4-25.7); Bilirubin, Total 0.3 mg/dL (0.2-1.2); CKMB 1.2 ng/mL (0-6.6); Calc. Creatinine Clearance 0 mL/min (70-130); Calcium 9.5 mg/dL (7.8-10.44); Carbon Dioxide 27 mmol/L (23-31); Chloride 105 mmol/L (98-107); Estimated GFR-MDRD 25; Globulin 3.3 g/dL (2.4-3.5); Glucose 88 mg/dL (83-110); Potassium 6.2 mmol/L (3.5-5.1); Sodium 134 mmol/L (136-145); Troponin I Less than 0.010 ng/mL (< 0.028)
[2017-10-26] MEDS ORDERED: Pantoprazole 40 MG VIAL ONE (16:53)
[2017-10-26] MEDS ORDERED: Dextrose 50% Abboject 50 ML SYRINGE ONE ×2 (16:53→16:54)
[2017-10-26] MEDS ORDERED: Calcium Gluc 4.6 MEQ/10 ML (100 MG/ML) ONE (16:53)
[2017-10-26] MEDS ORDERED: Insulin Regular 300 UNITS/3 ML VIAL ONE (16:53)
--- NOTE | 2017-10-26 17:31 | RAD ---
PORTABLE CHEST ONE VIEW: 10/26/2017 4:53 p.m. HISTORY: Dyspnea. COMPARISON: 10/19/2017 FINDINGS: The heart size is normal. The aorta is tortuous. The moderate sized right-sided pleural effusion is stable. No definite pneumothorax is seen. There are degenerative changes in the spine. IMPRESSION: Stable right pleural effusion. POS: [facility]
[2017-10-26] MEDS: Pantoprazole 40 MG VIAL IVP SCH (20:24)
[2017-10-26 21:59] LABS: Anion Gap 10 mmol/L (10-20); BUN (Urea Nitrogen) 44 mg/dL (8.4-25.7); Calc. Creatinine Clearance 0 mL/min (70-130); Calcium 8.9 mg/dL (7.8-10.44); Carbon Dioxide 19 mmol/L (23-31); Chloride 110 mmol/L (98-107); Estimated GFR-MDRD 27; Glucose 111 mg/dL (83-110); Potassium 5.4 mmol/L (3.5-5.1); Sodium 134 mmol/L (136-145)
[2017-10-26 22:08] VITALS: BMI 22.3
[2017-10-26] MEDS: Furosemide 20 MG/2 ML VIAL SLOW IVP PRN (23:21)
[2017-10-27] MEDS: Furosemide 20 MG/2 ML VIAL SLOW IVP PRN (02:38)
--- NOTE | 2017-10-27 03:16 | HP ---
DATE OF ADMISSION: 10/26/2017 REASON FOR ADMISSION AND CHIEF COMPLAINT: Anemia. HISTORY OF PRESENT ILLNESS: Mr. Russell is an 87-year-old male, who was recently in the [facility] a week ago, was treated for anemia, transfused and released. Hemoglobin went up to 8.4 grams and hyperkalemia was also corrected and he had repeat labs done last week in the clinic which showed anemic again, hemoglobin dropping to 6 grams. The patient also feels a bit weak and dizzy, but he feliciano s been eating well, so he was referred to the hospital. In the ER, the patient was evaluated and fou nd to have hemoglobin of 6.2 with chronic kidney disease and hyperkalemia. The patient admitted for possible transfusion. The patient was also found to have evidence of GI bleeding because he had bloo d on rectal exam in the ER, so he was started on fluids and Protonix and admitted for further evaluat ion and management. PAST MEDICAL HISTORY: 1. Hypertension. 2. Coronary artery disease, triple vessel, not a candidate for surgery. 3. Reactive airway disease. 4. Chronic anemia. 5. Right pleural effusion, chronic. 6. Chronic kidney disease, stage 3. 7. Peripheral vascular disease. 8. History of CHF with decrease in LV function with ejection fraction of 20%. PAST SURGICAL HISTORY: Nothing significant. CURRENT MEDICATIONS: The patient is on aspirin 81 mg daily, hydralazine 25 b.i.d., multivitamin manjula y, simvastatin 40 mg daily, tramadol p.r.n., Protonix 40 mg daily, amlodipine 5 mg daily, Coreg 12.5 b.i.d., Lasix is on hold, isosorbide 10 mg daily, sodium bicarbonate b.i.d. ALLERGIES: No known drug allergies. FAMILY HISTORY: Nothing of interest. SOCIAL HISTORY: The patient lives with family. No history of alcohol intake. Smokes 1 pack a day. REVIEW OF SYSTEMS: Cardiovascular: No chest pain. No shortness of breath. Respiratory: No fever or cough. Gastrointestinal: No nausea or vomiting. Has rectal bleeding. Central nervous system: No headache. Feels dizzy. PHYSICAL EXAMINATION: GENERAL: The patient is alert, awake, and oriented x3. VITAL SIGNS: Temperature 98, pulse 68, respirations 20, blood pressure 180/70. HEENT: Head is normocephalic, atraumatic. Pupils are equal and reactive to light. Nasopharynx is p nicolette and dry. Hard and soft palate, no lesions seen. SKIN: Turgor is decreased. NECK: Supple. No JVD. LUNGS: Bilateral air entry present, no rales, no rhonchi. HEART: S1, S2 regular. ABDOMEN: Soft, no distention, no tenderness. Normal bowel sounds present. RECTAL: Done and revealed pacheco blood. CENTRAL NERVOUS SYSTEM: No focal deficits. LABORATORY AND X-RAY FINDINGS: CBC shows WBC 7.3, hemoglobin 6.2, hematocrit 18.9, platelets 275. M etabolic panel: Sodium 134, potassium 4.6, chloride 105, CO2 of 27, BUN 48, creatinine 2.4, glucose 88. CK-MB 1.2, troponin I less than 0.010. BNP was 205. Chest x-ray, stable right pleural effusion . EKG shows normal sinus rhythm, no acute ST-T wave changes seen. ASSESSMENT: 1. Severe anemia. 2. Acute gastrointestinal bleeding. 3. Hyperkalemia. 4. Chronic kidney disease, stage 3. 5. Coronary artery disease, three-vessel, not a candidate for surgery. 6. Right pleural effusion, chronic. 7. Hypertension, uncontrolled. PLAN: 1. Vital signs q.4 hours. 2. Activity: As tolerated. 3. Allergies: No known drug allergies. 4. Hep-Lock. 5. Continue home medications. 6. GI consult. 7. BNP, base met and CBC in the morning. 8. Nephrology consult. The patient already received calcium gluconate as well as D50 and insulin in the ER for hyperkalemia. We will repeat BMP also tonight.
--- NOTE | 2017-10-27 03:49 | CON ---
DATE OF CONSULTATION: 10/26/2017 CONSULTING PHYSICIAN: Tian Ford M.D. REASON FOR CONSULTATION: Acute kidney injury and hyperkalemia. REASON FOR ADMISSION: Severe anemia. HISTORY OF PRESENT ILLNESS: This is an 87-year-old male, who was recently [facility] the hospit [facility] after being admitted for anemia and was discharged after transfusion. His hemoglobin on discharge on 10/20/2017 was 8.1 and today it was found to be 6.2 and readmitted for evaluation of anemia and p ossible bleeding. Gastrointestinal is also consulted. Nephrology is consulted for acute kidney inju ry. He does have a creatinine of 2.4, which is better than his creatinine on previous admission of 2 .8. On 10/17/2017, his creatinine was 2.8, was got better to 2.5 on admission and today is 2.49. Th e patient denies any complaints. He feels good and he does not know why he is here. He reports that he has not seen any bleeding. No dark stools. No nausea or vomiting, no fever or chills. No chest pain, no shortness of breath. PAST MEDICAL HISTORY: Positive for coronary artery disease, anemia, hypertension, chronic kidney dis ease, peripheral vascular disease, congestive heart failure. PAST SURGICAL HISTORY: Not significant. HOME MEDICATIONS: Include hydralazine, Zocor, Protonix, Coreg, aspirin. ALLERGIES: No known drug allergies. SOCIAL HISTORY: He smokes 1 pack per day. No alcohol or illicit drug abuse. FAMILY HISTORY: No history of any kidney disease. REVIEW OF SYSTEMS: The following complete review of systems was negative, unless otherwise mentioned in the HPI or below: Constitutional: Weight loss or gain, ability to conduct usual activities. Sk in: Rash, itching. Eyes: Double vision, pain. ENT/Mouth: Nose bleeding, neck stiffness, pain, te nderness. Cardiovascular: Palpitations, dyspnea on exertion, orthopnea. Respiratory: Shortness of breath, wheezing, cough, hemoptysis, fever or night sweats. Gastrointestinal: Poor appetite, abdom inal pain, heartburn, nausea, vomiting, constipation, or diarrhea. Genitourinary: Urgency, frequenc y, dysuria, nocturia. Musculoskeletal: Pain, swelling. Neurologic/Psychiatric: Anxiety, depressio n. Allergy/Immunologic: Skin rash, bleeding tendency. PHYSICAL EXAMINATION: GENERAL: This is an elderly male, in no apparent distress. VITAL SIGNS: Temperature 98.7, pulse 60, respiratory rate 18, blood pressure 90/74. HEENT: Atraumatic, normocephalic. Oral mucosa is moist. NECK: Supple. CARDIOVASCULAR: S1, S2 heard. Rate and rhythm regular. RESPIRATORY: Clear. GASTROINTESTINAL: Abdomen is soft. MUSCULOSKELETAL: 1+ edema. DERMATOLOGIC: No skin rash. NEUROLOGIC: Alert, awake. PSYCHIATRIC: Mood and affect normal. LABORATORY DATA: Hemoglobin is 6.2, potassium is 6.2, BUN is 48, creatinine is 2.4. ASSESSMENT AND PLAN: 1. Acute kidney injury. Renal function is stable. 2. Chronic kidney disease, stage 3, stable. 3. Hyperkalemia, most likely from bleed. Continue supportive care. Agree with medical management f or now. We will monitor closely. Limit potassium intake. 4. Anemia, rule out bleed. Agree with GI evaluation. We will add Epogen, rule out iron deficiency. 5. Edema, controlled. 6. Hypertension. Continue home medication and titrate if needed. Plan is to monitor potassium closely. No acute indication for dialysis. We will follow.
[2017-10-27 05:04] LABS: #Basophils 0.1 thou/uL (0.0-0.2); #Eosinphils 0.3 thou/uL (0.0-0.7); #Lymphocytes 2.2 thou/uL (1.20-3.40); #Monocytes 0.9 thou/uL (0.11-0.59); #Neutrophils 5.6 thou/uL (1.40-6.50); %Basophils 0.6 % (0.0-1.0); %Eosinophils 3.4 % (0.0-10.0); %Lymphocytes 24.1 % (21.0-51.0); %Monocytes 10.4 % (0.0-10.0); %Neutrophils 61.5 % (42.0-75.0); Hemoglobin 9.7 g/dL (14.0-18.0); Mean Corpuscular HGB CONC 33.1 g/dL (32.0-36.0); Mean Corpuscular Hemoglobin 27.8 pg (27.0-31.0); Mean Corpuscular Volume 83.8 fl (80.0-94.0); Mean Platelet Volume 7.9 fL (7.4-10.4); Platelet Count 259 thou/uL (130-400); RBC Distribution Width 17.3 % (11.5-14.5); Red Blood Cell (RBC) Count 3.51 mill/uL (4.70-6.10); White Blood Cell (WBC) Count 9.1 thou/uL (4.8-10.8)
[2017-10-27 05:07] LABS: Anion Gap 15 mmol/L (10-20); BUN (Urea Nitrogen) 45 mg/dL (8.4-25.7); Calc. Creatinine Clearance 21 mL/min (70-130); Calcium 9.6 mg/dL (7.8-10.44); Carbon Dioxide 17 mmol/L (23-31); Chloride 110 mmol/L (98-107); Estimated GFR-MDRD 27; Glucose 83 mg/dL (83-110); Potassium 5.9 mmol/L (3.5-5.1); Sodium 136 mmol/L (136-145)
[2017-10-27 05:12] LABS: Iron 178 ug/dL (65-175); Iron Binding Capacity, Total 366 mcg/dL (261-462)
[2017-10-27] MEDS ORDERED: Epoetin (ESRD) 10,000 UNITS/ML VIAL SC SCH (09:00)
[2017-10-27] MEDS: Pantoprazole 40 MG VIAL IVP SCH (09:35)
--- NOTE | 2017-10-27 11:21 | PQF ---
CLINICAL DOCUMENTATION IMPROVEMENT CLARIFICATION FORM: ICD-10 Updated PLEASE DO AN ADDENDUM TO THE PROGRESS NOTE WITH ANY DOCUMENTATION UPDATES OR ADDITIONS AND CARRY THROUGH TO DC SUMMARY. THANK YOU. DATE: 10/27 ATTN: DR. Kip JEWELL Please exercise your independent, professional judgment in responding to the clarification form. Clinical indicators are provided on the bottom of this form for your review Please check appropriate box(s): [ ] Acute blood loss anemia [ y ] Chronic Anemia: [ y ] Blood loss [ ] Simple [ ] Other [ y] Anemia of Chronic Disease (please specify) ckd [ ] Other diagnosis [ ] Unable to determine For continuity of documentation, please document condition throughout progress notes and discharge summary. Thank You. CLINICAL INDICATORS - SIGNS / SYMPTOMS / LABS ER PHYSICIAN DIAGNOSIS DOCUMENTATION 10/26: GI BLEED, SEVERE ANEMIA ATTENDING PHYSICIAN H&P DOCUMENTATION 10/26: 1) SEVERE ANEMIA, SYMPTOMATIC; 3) GI BLEEDING H/H: 6.2/18.9 (ADMIT, 10/26) RISK FACTORS: RECENT HOSPITALIZATION FOR ANEMIA BLOOD ON RECTAL EXAM IN ER POSITIVE STOOL OCCULT BLOOD TREATMENTS: TRANSFUSION 2U PRBC (10/26) SC PROCRIT (TO START 10/27) GI CONSULT THANK YOU! Hanh (This form is maintained as a part of the permanent medical record) 2014 [employer]. All Rights Reserved Hanh Bains RN, BSN [email or web address] Office: [phone] [facility]
[2017-10-27] MEDS: Sodium Bicarbonate Tab 325 MG TAB PO SCH ×2 (15:16→21:07)
--- NOTE | 2017-10-27 20:08 | PRG ---
DATE OF SERVICE: 10/27/2017 NEPHROLOGY PROGRESS NOTE SUBJECTIVE: The patient was seen and examined at bedside and overnight events noted. The patient de nies any shortness of breath or chest pain or palpitation. No history of nausea or vomiting or diarr hea or fever or chills or cramps. OBJECTIVE: GENERAL: This is a thin-built male, in no apparent distress. VITAL SIGNS: Temperature 98.1, pulse 73, respiratory rate 18, blood pressure 154/67. HEENT: Atraumatic, normocephalic. Oral mucosa is moist. NECK: Supple. CARDIOVASCULAR: S1, S2 heard. Rate and rhythm regular. RESPIRATORY: Clear to auscultation. GASTROINTESTINAL: Abdomen is soft. MUSCULOSKELETAL: No tenderness. No edema. DERMATOLOGIC: No skin rash. NEUROLOGIC: Alert and awake and oriented x3. No focal neurologic deficits. Moving all the extremit ies. PSYCHIATRIC: Mood and affect normal. LABORATORY DATA: 1. Hemoglobin is 9.7 from 6.2 after transfusion. 2. Potassium is 5.9 this morning, given Kayexalate. 3. BUN 45, creatinine is 2.3. ASSESSMENT AND PLAN: 1. Acute kidney injury on chronic kidney disease stage 3-4. Renal function is stable at his baselin e. 2. Hyperkalemia. Potassium went up after medical management, so I agree with Kayexalate. Close mon itoring. Rule out bleed. 3. Anemia, rule out bleed. Hemoglobin better after transfusion. 4. Edema, controlled. 5. Hypertension. Titrate medications. Currently, stable. 6. Renal function is stable at his baseline. Hyperkalemia remains a concern. Plan is to medically manage and no acute indication for dialysis. Limit potassium in the diet. 7. Anemia. Iron saturation is adequate, but ferritin is low. Consider iron tablets also if the pat ient can tolerate. 8. Acidosis, currently on sodium bicarbonate. We will follow.
[2017-10-27] MEDS: Carvedilol 6.25 MG TAB PO SCH (21:07)
[2017-10-27] MEDS: Isosorbide Dinitrate 5 MG TAB PO SCH (21:07)
[2017-10-27] MEDS: hydrALAZINE 25 MG TAB PO SCH (21:07)
--- NOTE | 2017-10-27 22:33 | CON ---
DATE OF CONSULTATION: 10/27/2017 GASTROENTEROLOGY CONSULTATION CHIEF COMPLAINT: Weakness. HISTORY OF PRESENT ILLNESS: Mr. Russell is an 87-year-old man who was admitted yesterday with weakn ess. He had no energy and was not easy for him to walk and he went [facility]. The weakness started yesterday morning. He had four bowel movements yesterday, which he re ports had blood with the stool. He had a dark stool today that the nursing staff reviewed. He has h ad no nausea or vomiting, no abdominal pain, no diarrhea or constipation, otherwise. He received 2 u nits transfusion last night. He was just in the hospital with anemia a couple of weeks ago, and he h ad a couple of units transfused then. He has had no overt bleeding prior to this hospital stay. He is also noted to have acute on chronic renal insufficiency and hyperkalemia. He has had a problem wi th recurrent anemia and has had transfusion back in June, at which point he underwent upper and l ower endoscopy, which were negative for bleeding source. The colonoscopy showed some diverticulosis. The EGD showed some mild gastritis and duodenitis. He also had transfusion last November. He underwen t endoscopy in the spring, which revealed a duodenal ulcer; however, EGD in 11/2016 revealed no ulcer. Again, EGD in 06/2016 showed no ulcer. The patient does have pantoprazole on his home med ication list; however, his daughter is not certain if he has really been on that or not. PAST MEDICAL HISTORY: Hypertension, hyperparathyroidism, chronic kidney disease. He has been on amarjit lysis in the past, but is not on dialysis chronically now. Reactive airway disease, peripheral vascu lar disease, aortic aneurysm, duodenal ulcer diagnosed by EGD in the spring. He had myocardi al infarction in 06/2017. He has a history of cardiomyopathy. PAST SURGICAL HISTORY: EGD and colonoscopy in June this year. EGD in November of last year and also in the spring of last year. FAMILY HISTORY: Negative for GI malignancies. SOCIAL HISTORY: No alcohol or drugs. He has been a pack a day smoker previously. ALLERGIES: No known drug allergies. MEDICATIONS PRIOR TO ADMISSION: Aspirin 81 mg daily, hydralazine, simvastatin, tramadol, Protonix, a mlodipine, Coreg, Lasix, isosorbide, sodium bicarbonate. REVIEW OF SYSTEMS: Negative x10 systems reviewed except as stated in history of present illness. PHYSICAL EXAMINATION: VITAL SIGNS: Temperature 98.1, pulse 81, blood pressure 113/56. GENERAL: He is in no acute distress. He is awake and alert. LUNGS: Clear to auscultation bilaterally. HEART: Regular rate and rhythm. ABDOMEN: Soft, nontender, nondistended. Bowel sounds are present. EXTREMITIES: No lower extremity edema. RECTAL: Reveals black stool in the rectal vault, small amount. LABORATORY DATA: White blood cell count 9.1, hemoglobin is 9.7 after 2 units of transfusion. Prior to the transfusion, the hemoglobin was 6.2, discharge hemoglobin back on 10/20/2017 was 8.1, platelet s 259. INR 1.1, creatinine 2.31. Potassium was 5.9. He did receive some Kayexalate today. Iron 17 8, TIBC 366, ferritin 33. Ferritin back in 05/2017 was 13. IMPRESSION: 1. Acute on chronic anemia. He was discharged with a hemoglobin of 8.1 on 10/20/2017. On presentat ion, his hemoglobin was 6.2, however, his hemoglobin improved to 9.7 after only 2 units transfusion i ndicating that this may have been a diluted lab on this initial presentation. Nonetheless, he has feliciano d recurrent anemia requiring multiple transfusions over the last year. Endoscopy and colonoscopy in June were negative for bleeding source. EGD in November showed no ulcer; however, EGD in 08/2016 did show a duodenal ulcer. Patient has Protonix on his medication list now, however, the family is unab le to confirm these actually been on this. Given the black stool in the rectal vault now plus the si gnificant symptomatic anemia and questionable use of PPI lately. It may be reasonable to follow up e ndoscopy once more to rule out peptic ulcer. His ferritin has been low indicating likely has compone nt of iron deficiency; however, his iron level was over 100 with TIBC that was not elevated. I suspe ct chronic kidney disease is playing a significant role in his anemia. He has been started on epoeti n by Dr. Barber. 2. Cardiomyopathy. 3. Coronary artery disease. 4. Reactive airway disease. 5. Chronic kidney disease. 6. Hyperkalemia. RECOMMENDATIONS: 1. Proton-pump inhibitor. 2. We will plan endoscopy once more in light of the black stools. If this is negative, then I would just treat with iron-supplementation and epoetin. If necessary, iron can be given IV. If he shows further signs of overt bleeding and fails to respond to iron supplementation and epoetin then capsule endoscopy could be considered as an outpatient if the endoscopy is negative. Overall, I think this is likely of a low yield and I would not push for that yet.
[2017-10-28 05:50] LABS: #Eosinphils 0.2 thou/uL (0.0-0.7); #Lymphocytes 1.7 thou/uL (1.20-3.40); #Monocytes 0.7 thou/uL (0.11-0.59); #Neutrophils 4.8 thou/uL (1.40-6.50); %Basophils 0.5 % (0.0-1.0); %Eosinophils 3.1 % (0.0-10.0); %Lymphocytes 22.4 % (21.0-51.0); %Monocytes 9.6 % (0.0-10.0); %Neutrophils 64.4 % (42.0-75.0); Hemoglobin 8.7 g/dL (14.0-18.0); Mean Corpuscular HGB CONC 32.8 g/dL (32.0-36.0); Mean Corpuscular Hemoglobin 27.4 pg (27.0-31.0); Mean Corpuscular Volume 83.6 fl (80.0-94.0); Mean Platelet Volume 7.8 fL (7.4-10.4); Platelet Count 251 thou/uL (130-400); RBC Distribution Width 17.9 % (11.5-14.5); Red Blood Cell (RBC) Count 3.18 mill/uL (4.70-6.10); White Blood Cell (WBC) Count 7.5 thou/uL (4.8-10.8)
[2017-10-28 06:04] LABS: Anion Gap 13 mmol/L (10-20); BUN (Urea Nitrogen) 54 mg/dL (8.4-25.7); Calc. Creatinine Clearance 19 mL/min (70-130); Calcium 9.4 mg/dL (7.8-10.44); Carbon Dioxide 22 mmol/L (23-31); Chloride 106 mmol/L (98-107); Estimated GFR-MDRD 25; Glucose 101 mg/dL (83-110); Potassium 4.8 mmol/L (3.5-5.1); Sodium 136 mmol/L (136-145)
[2017-10-28] MEDS: Aspirin 81 mg Enteric Coated Tablet PO SCH (09:30)
[2017-10-28] MEDS: Carvedilol 6.25 MG TAB PO SCH ×2 (09:30→20:39)
[2017-10-28] MEDS: Amlodipine 5 MG TAB PO SCH (09:31)
[2017-10-28] MEDS: hydrALAZINE 25 MG TAB PO SCH ×2 (09:32→20:38)
[2017-10-28] MEDS: Isosorbide Dinitrate 5 MG TAB PO SCH ×2 (09:32→20:38)
[2017-10-28] MEDS: Atorvastatin Calcium 20 MG TAB PO SCH (09:32)
[2017-10-28] MEDS: Sodium Bicarbonate Tab 325 MG TAB PO SCH ×3 (09:32→20:38)
[2017-10-28] MEDS: Furosemide 20 MG TAB PO SCH (09:33)
[2017-10-28] MEDS: Multivit, Therapeutic 1 TAB PO SCH (09:34)
[2017-10-28] MEDS: Iron Polysaccharides Complex 150 MG CAP PO SCH (09:34)
[2017-10-28] MEDS: Sodium Chloride 0.45% 1,000 ML IV SCH ×2 (11:40→22:55)
[2017-10-28] MEDS ORDERED: Lidocaine 1% PF 5 ML VIAL ONE (11:54)
[2017-10-28] MEDS ORDERED: PROPOFOL 200 MG/20 ML VIAL ONE (11:54)
[2017-10-28] MEDS ORDERED: Ketamine 50 MG/ML VIAL ONE (13:35)
[2017-10-28] MEDS ORDERED: Ondansetron HCl/PF 4 MG/2 ML Vial IVP PRN (13:50)
--- NOTE | 2017-10-28 17:22 | PRG ---
DATE OF SERVICE: 10/28/2017 NEPHROLOGY PROGRESS NOTE SUBJECTIVE: Patient was seen and examined at bedside and overnight events noted. Patient denies any shortness of breath or chest pain or palpitation. No history of nausea or vomiting or diarrhea or f ever or chills or cramps. OBJECTIVE: GENERAL: He is a well-built male in no apparent distress. VITAL SIGNS: Temperature 98.4, pulse 62, respirations 18, blood pressure 100/46. HEENT: Atraumatic, normocephalic. Oral mucosa is moist. NECK: Supple. CARDIOVASCULAR: S1, S2 heard. Rate and rhythm regular. RESPIRATORY: Clear to auscultation. GASTROINTESTINAL: Abdomen is soft. MUSCULOSKELETAL: No tenderness. No edema. DERMATOLOGIC: No skin rash. NEUROLOGIC: Alert and awake and oriented x3. No focal neurologic deficits. Moving all the extremit ies. PSYCHIATRIC: Mood and affect normal. LABORATORY DATA: Potassium is 4.8, BUN is 54, creatinine is 2.4. ASSESSMENT AND PLAN: 1. Acute kidney injury on chronic kidney disease stage 4. Renal function better, stable. 2. Hyperkalemia, better. Continue medical management. No acute indication for dialysis. 3. Edema. 4. Hypertension. 5. Anemia. 6. Metabolic acidosis, on bicarbonate. Overall, labs are stable. We will follow.
--- NOTE | 2017-10-28 18:02 | OP ---
PREOPERATIVE DIAGNOSIS: Upper gastrointestinal bleed. DESCRIPTION OF PROCEDURE: After informed consent was obtained, the patient was placed in left latera l decubitus position. Anesthesia was administered per the Anesthesia Department. Forward-viewing en doscope was inserted into the esophagus under direct visualization with ease and passed to the second portion of the duodenum with ease. No blood was seen in the upper GI tract. Upon exiting the stoma ch, there was ulceration in the angularis. This was oozing a slight bit of blood. It was treated wi th a 10-[employer] BICAP electrocautery with a setting of 20 joules and 2 seconds. Good hemostasis was a chieved. Remainder of the stomach was normal. Esophagus was normal throughout. ASSESSMENT: Small ulcer at the angularis with mild oozing seen upon exit of the stomach. No blood w as otherwise seen in the stomach - status post electrocautery. RECOMMENDATION: PPI.
[2017-10-29 05:45] LABS: #Eosinphils 0.3 thou/uL (0.0-0.7); #Lymphocytes 1.8 thou/uL (1.20-3.40); #Monocytes 0.9 thou/uL (0.11-0.59); #Neutrophils 4.6 thou/uL (1.40-6.50); %Basophils 0.2 % (0.0-1.0); %Lymphocytes 24.1 % (21.0-51.0); %Monocytes 11.8 % (0.0-10.0); %Neutrophils 59.9 % (42.0-75.0); Hemoglobin 8.1 g/dL (14.0-18.0); Mean Corpuscular HGB CONC 32.3 g/dL (32.0-36.0); Mean Corpuscular Hemoglobin 27.1 pg (27.0-31.0); Mean Corpuscular Volume 83.8 fl (80.0-94.0); Platelet Count 229 thou/uL (130-400); RBC Distribution Width 17.8 % (11.5-14.5); Red Blood Cell (RBC) Count 3.01 mill/uL (4.70-6.10); White Blood Cell (WBC) Count 7.6 thou/uL (4.8-10.8)
[2017-10-29 06:05] LABS: Anion Gap 11 mmol/L (10-20); BUN (Urea Nitrogen) 48 mg/dL (8.4-25.7); Calc. Creatinine Clearance 22 mL/min (70-130); Calcium 9.1 mg/dL (7.8-10.44); Carbon Dioxide 23 mmol/L (23-31); Chloride 107 mmol/L (98-107); Estimated GFR-MDRD 28; Glucose 89 mg/dL (83-110); Potassium 4.2 mmol/L (3.5-5.1); Sodium 137 mmol/L (136-145)
[2017-10-29] MEDS: hydrALAZINE 25 MG TAB PO SCH ×2 (10:28→19:33)
[2017-10-29] MEDS: Isosorbide Dinitrate 5 MG TAB PO SCH ×2 (10:28→19:32)
[2017-10-29] MEDS: Amlodipine 5 MG TAB PO SCH (10:30)
[2017-10-29] MEDS: Multivit, Therapeutic 1 TAB PO SCH (10:30)
[2017-10-29] MEDS: Sodium Bicarbonate Tab 325 MG TAB PO SCH ×3 (10:30→19:32)
[2017-10-29] MEDS: Iron Polysaccharides Complex 150 MG CAP PO SCH (10:30)
[2017-10-29] MEDS: Furosemide 20 MG TAB PO SCH (10:30)
[2017-10-29] MEDS: Atorvastatin Calcium 20 MG TAB PO SCH (10:30)
[2017-10-29] MEDS: Aspirin 81 mg Enteric Coated Tablet PO SCH (10:30)
[2017-10-29] MEDS: Carvedilol 6.25 MG TAB PO SCH ×2 (10:31→19:33)
--- NOTE | 2017-10-29 12:56 | PRG ---
Patient Name: ELIANA DENTON Date of service: 10/29/2017 Subjective: Patient was seen and examined at bedside and overnight events noted. Patient denies any shortness of breath or chest pain or palpitation. No history of nausea or vomiting or diarrhea or fever or chills or cramps. Objective: General: This is a well-built male in no apparent distress. Vital signs: Temperature 97.9, pulse 53, respirations 16, blood pressure 159/69. HEENT: Atraumatic, normocephalic. Oral mucosa is moist. Neck: Supple. Cardiovascular: S1 S2 heard. Rate and rhythm regular. Respiratory: Clear to auscultation. Gastrointestinal: Abdomen is soft. Musculoskeletal: No tenderness. No edema. Dermatologic: No skin rash. Neurologic: Alert and awake and oriented X3. No focal neurologic deficits. Moving all the extremit ies. Psychiatric: Mood and affect normal. LABORATORY DATA: Potassium 4.2, BUN 48, creatinine is 2.2. ASSESSMENT AND PLAN: 1. Acute kidney injury on chronic kidney stage 4, stable creatinine. 2. Hyperkalemia, much better. 3. Anemia, rule out bleed. 4. Edema. 5. Hypertension. 6. Acidosis on sodium bicarbonate, better. Overall, labs are looking better and renal function is stable.
[2017-10-29] MEDS: Sodium Chloride 0.45% 1,000 ML IV SCH (14:31)
[2017-10-29] MEDS ORDERED: Acetaminophen 325 MG TAB PO PRN (21:36)
[2017-10-30] MEDS: Atorvastatin Calcium 20 MG TAB PO SCH (08:35)
[2017-10-30] MEDS: Isosorbide Dinitrate 5 MG TAB PO SCH (08:35)
[2017-10-30] MEDS: Iron Polysaccharides Complex 150 MG CAP PO SCH (08:35)
[2017-10-30] MEDS: Multivit, Therapeutic 1 TAB PO SCH (08:35)
[2017-10-30] MEDS: Aspirin 81 mg Enteric Coated Tablet PO SCH (08:36)
[2017-10-30] MEDS: Sodium Bicarbonate Tab 325 MG TAB PO SCH (08:36)
[2017-10-30 11:23] LABS: #Eosinphils 0.2 thou/uL (0.0-0.7); #Lymphocytes 1.4 thou/uL (1.20-3.40); #Monocytes 0.7 thou/uL (0.11-0.59); #Neutrophils 4.4 thou/uL (1.40-6.50); %Basophils 0.5 % (0.0-1.0); %Eosinophils 3.4 % (0.0-10.0); %Lymphocytes 20.6 % (21.0-51.0); %Monocytes 10.3 % (0.0-10.0); %Neutrophils 65.2 % (42.0-75.0); Hemoglobin 8.5 g/dL (14.0-18.0); Mean Corpuscular HGB CONC 31.9 g/dL (32.0-36.0); Mean Corpuscular Hemoglobin 27.3 pg (27.0-31.0); Mean Corpuscular Volume 85.6 fl (80.0-94.0); Mean Platelet Volume 8.2 fL (7.4-10.4); Platelet Count 260 thou/uL (130-400); RBC Distribution Width 18.4 % (11.5-14.5); Red Blood Cell (RBC) Count 3.11 mill/uL (4.70-6.10); White Blood Cell (WBC) Count 6.7 thou/uL (4.8-10.8)
[2017-10-30 11:47] LABS: Anion Gap 11 mmol/L (10-20); BUN (Urea Nitrogen) 36 mg/dL (8.4-25.7); Calc. Creatinine Clearance 20 mL/min (70-130); Calcium 9.4 mg/dL (7.8-10.44); Carbon Dioxide 23 mmol/L (23-31); Chloride 108 mmol/L (98-107); Estimated GFR-MDRD 27; Glucose 113 mg/dL (83-110); Potassium 4.5 mmol/L (3.5-5.1); Sodium 137 mmol/L (136-145)
[2017-10-30 13:15] VITALS: BP 136/63; TEMP 97.9
[2017-10-30] MEDS: Carvedilol 6.25 MG TAB PO SCH (13:18)
[2017-10-30] MEDS: hydrALAZINE 25 MG TAB PO SCH (13:18)
[2017-10-30] MEDS: Amlodipine 5 MG TAB PO SCH (13:19)
--- NOTE | 2017-10-30 19:45 | PRG ---
DATE OF SERVICE: 10/30/2017 SUBJECTIVE: Patient was seen and examined at bedside and overnight events noted. Patient denies any shortness of breath or chest pain or palpitation. No history of nausea or vomiting or diarrhea or fever or chills or cramps. OBJECTIVE: GENERAL: This is a well-built male, in no apparent distress. VITAL SIGNS: Temperature 98.7, pulse 64, respiratory rate 18, blood pressure 132/63. HEENT: Atraumatic, normocephalic. Oral mucosa is moist NECK: Supple CARDIOVASCULAR: S1S2 heard, Rate and rhythm regular. RESPIRATORY: Clear to auscultation. GASTROINTESTINAL: Abdomen is soft. MUSCULOSKELETAL: No tenderness. No edema. DERMATOLOGIC: No skin rash. NEUROLOGIC: Alert and awake and oriented x3. No focal neurologic deficits. Moving all the extremit ies. PSYCHIATRIC: Mood and affect normal. LABORATORY DATA: Potassium is 4.5, BUN 36, creatinine is 2.3. ASSESSMENT AND PLAN: 1. Acute kidney injury on chronic kidney stage IV. Renal function is stable. 2. Hyperkalemia, better. 3. Edema, controlled. 4. Hypertension. 5. Anemia, stable after transfusion. Overall, renal function is stable. I will follow.
--- NOTE | 2017-11-02 09:21 | DIS ---
DATE OF ADMISSION: 10/26/2017 DATE OF DISCHARGE: 10/30/2017 ADMITTING DIAGNOSES: 1. Severe anemia. 2. Acute gastrointestinal bleeding. 3. Hyperkalemia. 4. Chronic kidney disease. 5. Acute kidney injury. 6. Coronary artery disease, 3-vessel, not a candidate for surgery. 7. Chronic right pleural effusion. 8. Uncontrolled hypertension. FINAL DIAGNOSES: 1. Severe anemia, symptomatic, improved. 2. Acute gastrointestinal bleeding, possibly due to bleeding gastric ulcer. 3. Hypertension, uncontrolled, improved. 4. Acute kidney injury, improved. 5. Hyperkalemia, improved. 6. Chronic kidney disease stage 3. 7. Coronary artery disease, 3-vessel, not a candidate for surgery. BRIEF SUMMARY OF HOSPITAL COURSE: Mr. Russell is an 87-year-old male admitted because of s evere anemia and evidence of GI bleeding. The patient's hemoglobin was 6.2 on admission. The patien t was started on Protonix IV as well as transfused 2 units of packed red blood cells and hemoglobin i mproved to 9.7 today and stayed around 8 to 8.5. GI consult was done. The patient was seen by Dr. Johanna feldman who did the EGD because of the bleeding. The patient underwent EGD. EGD showed bleeding gastri c ulcers. Electrocautery was done. The patient did not have any more bleeding. His H and H remaine d stable, did have acute kidney injury. His BUN was 54 and came down to 36. His creatinine was 2.49 , came down to 2.24. Patient was tolerating diet very well and ambulating. In view of improvement, the patient was discharged, and at the time of discharge, he was stable. Vital signs stable. Lungs clear. Heart sounds regular. Abdomen soft, nontender. Bowel sounds present. DISCHARGE MEDICATIONS: Include simvastatin 40 mg daily, hydralazine 50 b.i.d., multivitamin daily, P rotonix 40 mg daily, Coreg 12.5 b.i.d., sodium bicarbonate 975 t.i.d. Imdur 10 mg b.i.d., aspirin 81 mg daily, amlodipine 5 mg daily, and Niferex 150 mg daily. FOLLOWUP: The patient will come for followup in 2 weeks.
== END 2017-10-30 15:16 | disposition home or self-care (01) | DRG 378 ==
LOC: ERS 15:05 → 2NO 18:09
PROVIDERS: ADMIT Internal Medicine; ATTEND Internal Medicine
PROC: 30233N1 Transfusion of Nonautologous Red Blood Cells into Peripheral Vein, Percutaneous Approach (ICD-10-PCS; 2017-10-26)
PROC: 0W3P8ZZ Control Bleeding in Gastrointestinal Tract, Via Natural or Artificial Opening Endoscopic (ICD-10-PCS; principal; 2017-10-28)
DX: K25.4 Chronic or unspecified gastric ulcer with hemorrhage (principal); I13.0 Hypertensive heart and chronic kidney disease with heart failure and stage 1 through stage 4 chronic kidney disease, or unspecified chronic kidney disease; J90 Pleural effusion, not elsewhere classified; N17.9 Acute kidney failure, unspecified; N18.4 Chronic kidney disease, stage 4 (severe); E87.2 Acidosis; I42.9 Cardiomyopathy, unspecified; I50.9 Heart failure, unspecified; I25.10 Atherosclerotic heart disease of native coronary artery without angina pectoris; D50.0 Iron deficiency anemia secondary to blood loss (chronic); D63.1 Anemia in chronic kidney disease; E87.5 Hyperkalemia; F17.210 Nicotine dependence, cigarettes, uncomplicated; J45.909 Unspecified asthma, uncomplicated; I73.9 Peripheral vascular disease, unspecified; Z79.82 Long term (current) use of aspirin; Z79.899 Other long term (current) drug therapy
CPT/HCPCS: 36415; 36430; 71045; 80048; 80053; 82274; 82553; 82728; 83540; 83550; 83880; 84484; 85025; 86850; 86900; 86901; 93005; 96365; 96375; A4216; C9113; J1815; J1940; J2001; J2704; P9016; Q4081

== ENCOUNTER 2017-11-13 16:21 | Emergency (ER) | payer MEDICARE, MEDICAID ==
[2017-11-13 18:00] LABS: #Eosinphils 0.2 thou/uL (0.0-0.7); #Lymphocytes 1.6 thou/uL (1.20-3.40); #Monocytes 0.7 thou/uL (0.11-0.59); #Neutrophils 3.7 thou/uL (1.40-6.50); %Basophils 0.5 % (0.0-1.0); %Eosinophils 3.9 % (0.0-10.0); %Lymphocytes 25.5 % (21.0-51.0); %Monocytes 11.3 % (0.0-10.0); %Neutrophils 58.8 % (42.0-75.0); Hemoglobin 8.1 g/dL (14.0-18.0); Mean Corpuscular Volume 84.4 fL (78.0-98.0); Mean Platelet Volume 6.9 fL (7.4-10.4); Platelet Count 314 thou/uL (130-400); RBC Distribution Width 18.1 % (11.5-14.5); White Blood Cell (WBC) Count 6.4 thou/uL (4.8-10.8)
[2017-11-13 18:22] LABS: ALT (SGPT) 11 U/L (8-55); AST (SGOT) 18 U/L (5-34); Albumin 3.8 g/dL (3.4-4.8); Alkaline Phosphatase 62 U/L (40-150); Anion Gap 13 mmol/L (10-20); BUN (Urea Nitrogen) 32 mg/dL (8.4-25.7); Bilirubin, Total 0.3 mg/dL (0.2-1.2); Calc. Creatinine Clearance 0 mL/min (70-130); Carbon Dioxide 18 mmol/L (23-31); Chloride 108 mmol/L (98-107); Estimated GFR-MDRD 28; Globulin 3.5 g/dL (2.4-3.5); Glucose 85 mg/dL (83-110); Potassium 5.8 mmol/L (3.5-5.1); Protein, Total 7.3 g/dL (5.8-8.1); Sodium 133 mmol/L (136-145)
== END 2017-11-13 23:05 | disposition home or self-care (01) ==
LOC: ERS 16:21
DX: E87.5 Hyperkalemia (principal); D64.9 Anemia, unspecified; I12.9 Hypertensive chronic kidney disease with stage 1 through stage 4 chronic kidney disease, or unspecified chronic kidney disease; N18.9 Chronic kidney disease, unspecified; E78.5 Hyperlipidemia, unspecified; Z87.891 Personal history of nicotine dependence
CPT/HCPCS: 36415; 80053; 85025; 93005

== ENCOUNTER 2017-11-26 03:51 | Emergency (ER) | payer MEDICARE, MEDICAID ==
[2017-11-26 04:34] LABS: #Eosinphils 0.1 thou/uL (0.0-0.7); #Lymphocytes 1.5 thou/uL (1.20-3.40); #Monocytes 0.7 thou/uL (0.11-0.59); #Neutrophils 5.2 thou/uL (1.40-6.50); %Basophils 0.5 % (0.0-1.0); %Eosinophils 1.9 % (0.0-10.0); %Lymphocytes 19.7 % (21.0-51.0); %Monocytes 9.2 % (0.0-10.0); %Neutrophils 68.7 % (42.0-75.0); Hemoglobin 7.7 g/dL (14.0-18.0); Mean Corpuscular HGB CONC 32.3 g/dL (32.0-36.0); Mean Corpuscular Hemoglobin 26.4 pg (27.0-31.0); Mean Corpuscular Volume 81.8 fL (78.0-98.0); Mean Platelet Volume 6.9 fL (7.4-10.4); Platelet Count 322 thou/uL (130-400); Red Blood Cell (RBC) Count 2.91 mill/uL (4.70-6.10); White Blood Cell (WBC) Count 7.6 thou/uL (4.8-10.8)
[2017-11-26 04:48] LABS: ALT (SGPT) 8 U/L (8-55); AST (SGOT) 16 U/L (5-34); Albumin 4.1 g/dL (3.4-4.8); Alkaline Phosphatase 60 U/L (40-150); Anion Gap 14 mmol/L (10-20); BUN (Urea Nitrogen) 49 mg/dL (8.4-25.7); Bilirubin, Total 0.4 mg/dL (0.2-1.2); CK (CPK) 26 U/L (30-200); Calc. Creatinine Clearance 0 mL/min (70-130); Calcium 10.2 mg/dL (7.8-10.44); Carbon Dioxide 20 mmol/L (23-31); Chloride 105 mmol/L (98-107); Estimated GFR-MDRD 21; Globulin 3.6 g/dL (2.4-3.5); Glucose 105 mg/dL (83-110); Lipase 62 U/L (8-78); Potassium 5.3 mmol/L (3.5-5.1); Protein, Total 7.7 g/dL (5.8-8.1); Sodium 134 mmol/L (136-145)
[2017-11-26 04:51] LABS: CKMB 1.4 ng/mL (0-6.6); Troponin I Less than 0.010 ng/mL (< 0.028)
[2017-11-26] MEDS ORDERED: Calcium Gluc 4.6 MEQ/10 ML (100 MG/ML) ONE (06:28)
[2017-11-26] MEDS ORDERED: Insulin Regular 300 UNITS/3 ML VIAL ONE ×2 (06:28→07:28)
[2017-11-26] MEDS ORDERED: Dextrose 50% Abboject 50 ML SYRINGE ONE (06:29)
[2017-11-26 07:58] LABS: Bilirubin Negative (Negative); Blood, Urine Negative (Negative); Clarity CLEAR (Clear); Glucose, Urine (Dipstick) 250 mg/dL (Negative); Leukocyte Negative (Negative); Nitrite Negative (Negative); Protein, Urine (Dipstick) 30 mg/dL (Neg-Trace); Urobilinogen 0.2 mg/dL (0.2-1.0)
[2017-11-26 08:00] LABS: Bacteria/HPF None Seen HPF (None Seen); Hyaline Casts/LPF 0-3 HYALINE CAST LPF (0-3 Hyaline); Pathc Cast-AUWi Flag 0.29 (0-2.49); RBC/HPF None Seen HPF (0-3); Squamous Epithelial None Seen HPF (0-3); WBC/HPF None Seen HPF (0-3)
--- NOTE | 2017-11-26 10:25 | CT ---
CT OF THE ABDOMEN AND PELVIS WITHOUT IV CONTRAST: INDICATION: Abdominal pain that started 2 days ago. The patient also reports a history of black stool. COMPARISON: CT thorax dated 06/14/17. FINDINGS: Spiculated pulmonary nodule in the left lower lobe is increased in size now measuring 1.7 cm where it previously measured 9 mm. There is a moderate right pleural effusion and right basilar atelectasis. There is a tiny hypodensity involving segment 7 of the right hepatic lobe which is stable which is to o small to characterize but statistically likely reflective of cyst. There is prominent duodenal div erticulum involving the 2nd stage of the duodenum. The unopacified adrenal glands are unremarkable. The unopacified kidneys demonstrate prominent renovascular calcifications and diffuse renal cortical thinning. The spleen is normal-appearing. There are severe gastric calcifications noted involving the abdominopelvic vasculature. The prostate is mildly enlarged measuring 4.5 cm. The rectum and perirectal soft tissues are unremarkable. There are gas-filled loops of small and lar ge are nonspecific. There are no overt changes of obstruction. He appendix is not definitely seen. No free fluid is evident. The bladder is moderately distended. There is diffuse osteopenia. 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 IMPRESSION: 1. 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 2. Moderate right pleural effusion and right basilar atelectasis. 3. No definite acute CT abnormality to explain the patient's abdominal pain. 4. Mild prostate enlargement. POS: [facility]
[2017-11-26] MEDS ORDERED: Iopamidol 370 76% 50 ML VIAL FS ONE (13:24)
== END 2017-11-26 09:38 | disposition home or self-care (01) ==
LOC: ERS 03:51
DX: R10.12 Left upper quadrant pain (principal); E87.5 Hyperkalemia; N17.9 Acute kidney failure, unspecified; I12.0 Hypertensive chronic kidney disease with stage 5 chronic kidney disease or end stage renal disease; N18.9 Chronic kidney disease, unspecified; E78.5 Hyperlipidemia, unspecified; Z87.01 Personal history of pneumonia (recurrent); Z87.891 Personal history of nicotine dependence
CPT/HCPCS: 36415; 74176; 80053; 81003; 81015; 82274; 82553; 83690; 83880; 84484; 85025; 93005; 96374; 96375; J1815

== ENCOUNTER 2017-12-01 16:09 | Inpatient (IN) | payer MEDICARE, MEDICAID ==
[2017-12-01 16:47] LABS: #Eosinphils 0.1 thou/uL (0.0-0.7); #Monocytes 0.6 thou/uL (0.11-0.59); #Neutrophils 5.3 thou/uL (1.40-6.50); %Basophils 0.1 % (0.0-1.0); %Eosinophils 1.1 % (0.0-10.0); %Lymphocytes 14.9 % (21.0-51.0); %Neutrophils 75.9 % (42.0-75.0); Hemoglobin 6.7 g/dL (14.0-18.0); Mean Corpuscular HGB CONC 33.5 g/dL (32.0-36.0); Mean Corpuscular Hemoglobin 27.1 pg (27.0-31.0); Mean Platelet Volume 7.1 fL (7.4-10.4); Platelet Count 347 thou/uL (130-400); RBC Distribution Width 17.8 % (11.5-14.5); Red Blood Cell (RBC) Count 2.47 mill/uL (4.70-6.10)
[2017-12-01 17:04] LABS: Anion Gap 16 mmol/L (10-20); BUN (Urea Nitrogen) 47 mg/dL (8.4-25.7); Calc. Creatinine Clearance 0 mL/min (70-130); Calcium 9.8 mg/dL (7.8-10.44); Carbon Dioxide 21 mmol/L (23-31); Chloride 101 mmol/L (98-107); Estimated GFR-MDRD 23; Glucose 120 mg/dL (83-110); Potassium 5.5 mmol/L (3.5-5.1); Sodium 132 mmol/L (136-145)
[2017-12-01] MEDS ORDERED: Pantoprazole 40 MG VIAL ONE (17:31)
[2017-12-01 22:15] VITALS: BMI 21.8
[2017-12-01] MEDS: Sodium Chloride 0.9% 1,000 ML IV SCH (23:25)
[2017-12-02 06:08] LABS: #Eosinphils 0.2 thou/uL (0.0-0.7); #Lymphocytes 1.2 thou/uL (1.20-3.40); #Monocytes 0.8 thou/uL (0.11-0.59); #Neutrophils 3.3 thou/uL (1.40-6.50); %Basophils 0.5 % (0.0-1.0); %Eosinophils 3.6 % (0.0-10.0); %Lymphocytes 22.2 % (21.0-51.0); %Monocytes 14.4 % (0.0-10.0); %Neutrophils 59.2 % (42.0-75.0); Hemoglobin 7.7 g/dL (14.0-18.0); Mean Corpuscular Hemoglobin 27.1 pg (27.0-31.0); Mean Corpuscular Volume 82.2 fL (78.0-98.0); Mean Platelet Volume 7.1 fL (7.4-10.4); Platelet Count 306 thou/uL (130-400); RBC Distribution Width 16.6 % (11.5-14.5); Red Blood Cell (RBC) Count 2.82 mill/uL (4.70-6.10); White Blood Cell (WBC) Count 5.6 thou/uL (4.8-10.8)
--- NOTE | 2017-12-02 06:20 | CON ---
DATE OF CONSULTATION: 12/01/2017 REASON FOR CONSULTATION: Hyperkalemia. HISTORY OF PRESENT ILLNESS: This is a very pleasant 87-year-old gentleman who presented to the emerg ency room after he was noted to have anemia and the need for transfusion. The patient has a history of CKD and hyperkalemia. The patient denies headache, numbness, tingling or weakness. Denies any na usea, vomiting or chest pain. The patient had a hemoglobin of 6.7, a potassium of 5.5. His creatini ne has increased to 2.65, which is a better number than a few days ago. PAST MEDICAL HISTORY: Chronic kidney disease stage 4, hypertension, anemia, pneumonia, right pleural effusion, COPD, peripheral vascular disease, right eye blind. SOCIAL HISTORY: No alcohol. FAMILY HISTORY: Negative for ESRD. ALLERGIES: Reviewed. HOME MEDICATIONS: List reviewed. REVIEW OF SYSTEMS: Fifteen 10-point review of systems was performed and negative except positives no dia above. GENERAL: Weakness- HEAD: Headache- NECK: No swelling or lumps. NOSE: No epistaxis or discharge. EYES: No diplopia or pain. RESPIRATORY: Dyspnea- CARDIOVASCULAR: Chest pain- GASTROINTESTINAL: Nausea- /LOGGING [employer]: Hematuria- MUSCULOSKELETAL: No joint pain. NEUROPSYCHIATIC SYSTEMS: No suicidal ideation. No ideation. SKIN: Denies any rash or ulcer. CONSTITUTIONAL: No fever or chills. PHYSICAL EXAMINATION: GENERAL: Patient is awake, alert. VITAL SIGNS: Afebrile, pulse 72, breathing at 16, blood pressure 136/60. OBJECTIVE: See above. Awake, alert, in no acute distress. GENERAL APPEARANCE AND MENTAL STATUS: Fair. HEAD/NECK: Normocephalic. Atraumatic. EYES: EOMI. No deformity. EARS: Clear. No ulcers. NOSE: Intact. No lesions. MOUTH: Clear. No discharge. THROAT: Clear. No exudate. LUNGS: Clear. No crackles. CARDIAC: S1, S2. No rub. ABDOMEN: Benign. BS+. GENITALIA/RECTUM: Yee absent. BACK/EXTREMITIES: Edema 0+ Ulcer- NEUROLOGICAL: Alert and motor intact. SKIN: Rash- Bruise- LYMPHATICS: Edema- Ulcer- LABORATORY: Potassium 5.5, creatinine 2.6, bicarbonate 20. ASSESSMENT AND RECOMMENDATIONS: 1. Acute kidney injury with chronic kidney disease, most likely decreased effective arterial blood, we will continue gentle hydration. 2. Hyperkalemia. Give Kayexalate. 3. Anemia. Agree with transfusion, but monitor potassium closely after giving Kayexalate. Overall, prognosis is poor. I will order renal imaging, no urgent indication for dialysis at this ti me.
[2017-12-02 06:27] LABS: Anion Gap 11 mmol/L (10-20); BUN (Urea Nitrogen) 40 mg/dL (8.4-25.7); Calc. Creatinine Clearance 22 mL/min (70-130); Calcium 9.2 mg/dL (7.8-10.44); Carbon Dioxide 22 mmol/L (23-31); Chloride 107 mmol/L (98-107); Estimated GFR-MDRD 29; Glucose 74 mg/dL (83-110); Potassium 4.6 mmol/L (3.5-5.1); Sodium 135 mmol/L (136-145)
[2017-12-02] MEDS ORDERED: Acetaminophen 325 MG TAB PO PRN (10:06)
--- NOTE | 2017-12-02 10:28 | PRG ---
DATE OF SERVICE: 12/02/2017 SUBJECTIVE: This is an 87-year-old gentleman being seen for acute kidney injury. The patient denies any nausea, vomiting or chest pain. PHYSICAL EXAMINATION: GENERAL: Patient is awake, alert. VITAL SIGNS: Afebrile, pulse 62, breathing at 16, blood pressure 144/80. OBJECTIVE: See above. Awake, alert, in no acute distress. GENERAL APPEARANCE AND MENTAL STATUS: Fair. HEAD/NECK: Normocephalic. Atraumatic. EYES: EOMI. No deformity. EARS: Clear. No ulcers. NOSE: Intact. No lesions. MOUTH: Clear. No discharge. THROAT: Clear. No exudate. LUNGS: Clear. No crackles. CARDIAC: S1, S2. No rub. ABDOMEN: Benign. BS+. GENITALIA/RECTUM: Yee absent. BACK/EXTREMITIES: Edema 0+ Ulcer- NEUROLOGICAL: Alert and motor intact. SKIN: Rash- Bruise- LYMPHATICS: Edema- Ulcer- LABORATORY DATA: Hemoglobin 7.7, potassium 4.6, creatinine ____. ASSESSMENT AND RECOMMENDATIONS: 1. Acute kidney injury, improved. 2. Chronic kidney disease stage 4, stable. 3. Hyperkalemia, improved. 4. Hypernatremia, stable. 5. Metabolic acidosis, stable. No indication for dialysis. We will follow renal function closely.
--- NOTE | 2017-12-02 11:59 | CT ---
CT OF CHEST NONCONTRAST: Clinical history: Chronic right pleural effusion. Comparison: 06-14-17 FINDINGS: Re-demonstration of a prominent sized right pleural effusion with adjacent consolidation. The aerated aspect of the right lung is grossly stable. Re-demonstration of a spiculated 1.7 cm left lower lobe nodule as was depicted on the recent CT abdom en and pelvis exam, 11-26-17. This finding is indicative of malignancy. Limited evaluation of the regional soft tissues including lymph node and vasculature on the basis of noncontrast technique. There is minimal pericardial fluid. There is punctate subpleural nodularity of the left upper lobe. IMPRESSION: 1. Persistence of a large volume right pleural effusion with adjacent consolidation. 2. Spiculated left lower lobe nodule indicative of malignancy. Recommend Pulmonary Medicine consultat [facility] for further evaluation. POS: MIKE
--- NOTE | 2017-12-02 12:22 | HP ---
REASON FOR ADMISSION/CHIEF COMPLAINT: Abnormal labs with anemia, hyperkalemia, acute kidney injury. HISTORY OF PRESENT ILLNESS: Mr. Russell is an 87-year-old male who was sent to the [facility] because of marked drop in hemoglobin. The patient was seen in the office 2 days ago and the labs c carey back with hemoglobin of 6.3 and potassium of 5.8 and worsening renal failure. In view of that th e patient was advised to go to the emergency room. The patient was seen in the emergency room and fo und to have hemoglobin of 6.7, potassium 5.3 and worsening renal failure. The patient was recently i n the [facility] for anemia and had EGD done which showed a bleeding gastric ulcer. The patient was on Protonix. Currently, the patient does not have any abdominal pain, nausea, vomiting or dizziness. The patient has been ordered to have transfusion 1 unit of blood and is being admitted for further ev aluation and management. The patient was also seen in the ER recently a few days ago for abdominal p ain. Since that time he had an abdominal CT done which showed a nodule in the left lower lobe with h as increased in size suggestive of malignancy. PAST MEDICAL HISTORY: 1. Chronic kidney disease stage 3. 2. Hypertension. 3. Coronary artery disease, triple vessel, not a candidate for surgery. 4. Reactive airway disease. 5. Chronic anemia. 6. Right pleural effusion, chronic. 7. Peripheral vascular disease. 8. History of CHF with decrease in LV function with ejection fraction of 20%. 9. Left lung pulmonary nodule, possible malignancy. PAST SURGICAL HISTORY: Nothing significant. CURRENT MEDICATIONS: The patient is on aspirin 81 mg daily, hydralazine 50 b.i.d., multivitamin manjula y, simvastatin 40 mg daily, tramadol p.r.n., Protonix 40 mg daily, amlodipine 5 mg daily, Coreg 12.5 b.i.d., isosorbide 10 mg b.i.d., sodium bicarbonate 75 t.i.d., multivitamin daily, iron polysaccharid e complex Niferex daily 50 mg, Tylenol p.r.n. ALLERGIES: No known drug allergies. FAMILY HISTORY: Noncontributory. SOCIAL HISTORY: Patient lives with family. No history of smoking. No history of alcohol abuse. REVIEW OF SYSTEMS: CARDIOVASCULAR: No chest pain or shortness of breath. RESPIRATORY: No fever or cough. GASTROINTESTINAL: No nausea or vomiting. No abdominal pain. CENTRAL NERVOUS SYSTEM: No headache, no dizziness. PHYSICAL EXAMINATION: GENERAL: The patient is alert, awake, oriented x3. VITAL SIGNS: Temperature 98, pulse 70, respirations 20, blood pressure 150/70. HEENT: Head is normocephalic, atraumatic. Pupils equal and reactive to light. Nasopharynx is pale and dry. Hard and soft palate normal. SKIN: Skin turgor decreased. NECK: Supple. No JVD. LUNGS: Breath sounds diminished bilaterally, worse on the left. No rales, rhonchi. CARDIAC: S1, S2 regular. ABDOMEN: Soft, no distention, no tenderness. Normal bowel sounds. RECTAL: Deferred. EXTREMITIES: No edema. NEUROLOGIC: No focal deficit. LABORATORY AND X-RAY FINDINGS: CBC shows WBC 7, hemoglobin 6.7, hematocrit 20, platelets 347. Metab olic panel: Sodium 132, potassium 5.5, chloride 101, CO2 20, urea nitrogen 10.7, creatinine 2.6, glu cose 120. CT scan of the abdomen done on 11/26/2017 showed a large spiculated pulmonary nodule in the left lowe r lobe consistent with an enlarging malignancy. Chest x-ray and EKG not done. ASSESSMENT: 1. Severe anemia with a drop in hemoglobin and hematocrit. 2. Hyperkalemia. 3. Acute kidney injury. 4. Chronic kidney disease stage 3. 5. Hyponatremia. 6. Pulmonary nodule spiculated left lower lobe, possible malignancy. 7. Coronary artery disease, triple vessel, is not a candidate for surgery. Decreased LV function wi th ejection fraction of 20%. 8. Chronic right pleural effusion. 9. Peripheral vascular disease. 10. Reactive airway disease. PLAN: 1. Vitals q.4h. 2. Activity as tolerated. 3. Hep-Lock. 4. Transfuse 1 unit of packed red blood cells. 5. Kayexalate one dose of 15 grams. 6. Continue home medication. 7. Nephrology consult. 8. Pulmonary consult. 9. CT scan of the chest.
--- NOTE | 2017-12-02 14:39 | CON ---
DATE OF CONSULTATION: 12/02/2017 SERVICE: Pulmonary Medicine. REASON FOR CONSULTATION: Pulmonary nodule and pleural effusion. HISTORY OF PRESENT ILLNESS: The patient is an 87-year-old white male with past medical history signi ficant for pleural effusion that was previously subjected to thoracentesis in 05/2017. At that time, there was a very small pulmonary nodule that was present on the contralateral side. That being said , there is a whole bunch of debris located throughout both lungs. He had a CT of the abdomen and pel vis for an unrelated issue recently. He was called by his primary care physician even though he felt okay and was told to go to the emergency department because of low blood counts. A formal CT scan o f the chest was performed demonstrating a spiculated lesion in the left lower lobe. There was also a very small left-sided pleural effusion and a stable right-sided pleural effusion. The patient denie s having any weight loss, hemoptysis or night sweats. He had a heavy smoking history. He was previo usly seen by Dr. Hankins. PAST MEDICAL HISTORY: 1. Chronic kidney disease, stage 3. 2. Hypertension. 3. Coronary artery disease. 4. Chronic obstructive pulmonary disease. 5. Anemia. 6. Right pleural effusion, status post history of thoracentesis. 7. Peripheral vascular disease. 8. Chronic systolic heart failure. PAST SURGICAL HISTORY: Thoracentesis, EGD x2, colonoscopy, left hemiarthroplasty, right femoral cent ral venous Trialysis catheter placement with subsequent removal. FAMILY HISTORY: Noncontributory. SOCIAL HISTORY: He has a remote history of smoking. He has greater than 91-mopo-[id number] history of smo torres, but quit a while back. He has no alcohol or illicit drug use. He has no exposure to chemicals , dust asbestos or tuberculosis. ALLERGIES: No known drug allergies. MEDICATIONS: List of his inpatient medications were reviewed. No specific updates were made at this time. REVIEW OF SYSTEMS: General, head, eyes, ears, nose, throat, cardiovascular, respiratory, GI, , mus culoskeletal, neurologic and skin is negative except as mentioned in the HPI. PHYSICAL EXAMINATION: VITAL SIGNS: Afebrile, pulse 69, blood pressure 158/70, respirations 17, saturation 98% on room air. GENERAL: The patient is awake, alert, in no apparent distress. LUNGS: Excellent air entry. There is no prolonged expiratory phase, wheezing, rhonchi or crackles p resent. HEART: Normal rate, regular. ABDOMEN: Soft, nontender, nondistended. Bowel sounds are positive. MUSCULOSKELETAL: No cyanosis or clubbing. There is no pitting in the bilateral lower extremities. NEUROLOGIC: Grossly nonfocal. LABORATORY DATA: WBC 5.6, hemoglobin 7.7, platelets 306,000. INR 1.1. Creatinine 2.17 and gently d own trending, BUN 40, bicarbonate 22. Basic metabolic profile is otherwise unremarkable. BNP 120. Previous thoracentesis fluid on the right was reviewed. The pH was alkalotic, total protein was extr aordinarily low with an LDH that was also low. There were scant cellularity present. Cytology at at time was unremarkable. ASSESSMENT: 1. Pleural effusion, previously identified as a transudate in 05/2017. 2. Pulmonary nodule, with spiculation. 3. History of tobacco abuse. DISCUSSION AND PLAN: I talked to the patient about our differential, which could include an infectio us, inflammatory, neoplastic process. My suspicion is that we are dealing with a neoplastic process, however. The location of this thing prevents us from getting a reliable sample from bronchoscopic a pproach with need to do a CT-guided transcutaneous lung biopsy of this lesion. I discussed this with the patient, but unfortunately, he is not interested in knowing what this thing is. He suggests bogdan t if it is cancer, he would not want any type of intervention moving forward. Furthermore, he would not want the idea of it being a cancer in his head. He also suggested to me that if the air from the biopsy procedure touches the cancer that the cancer will start growing rapidly. He is going to talk with his family about whether or not to pursue any type of diagnostic procedure. He understands bogdan t without a diagnostic procedure, we will have no idea what this thing is or what our treatment optio ns are. He understands that. I do appreciate that he would not be a great candidate for generalized chemotherapy. That being said, he could potentially get away with something that is less caustic li ke immunotherapy or radiation therapy. He told me that he is 87 and if it came to it, and it was keila e for him to pass away, he would want to pass on. He had a brother with cancer. Roughly 2-3 months after he was diagnosed, he . Dr. Hankins will assume coverage of this patient tomorrow as he previously established a relationship with the patient. I set up a biopsy, but I will discontinue t hat pending further discussion.
[2017-12-02] MEDS: Sodium Bicarbonate Tab 325 MG TAB PO SCH ×2 (16:07→20:57)
[2017-12-02] MEDS: Sodium Chloride 0.9% 1,000 ML IV SCH (20:55)
[2017-12-02] MEDS: hydrALAZINE 25 MG TAB PO SCH (20:56)
[2017-12-02] MEDS: Atorvastatin Calcium 20 MG TAB PO SCH (20:56)
[2017-12-02] MEDS: Carvedilol 6.25 MG TAB PO SCH (20:56)
[2017-12-02] MEDS: Isosorbide Dinitrate 5 MG TAB PO SCH (20:57)
[2017-12-02] MEDS: Temazepam 15 MG CAP PO SCH (22:01)
--- NOTE | 2017-12-02 23:15 | CON ---
DATE OF CONSULTATION: 12/02/2017 REASON FOR CONSULTATION: Anemia. CONSULTING PHYSICIAN: Dr. Herman Hernandez. HISTORY OF PRESENT ILLNESS: Patient is an 87-year-old male with past medical history of coronary art jasmin disease, status post myocardial infarction, chronic kidney disease stage 3, hyperkalemia, hyperte nsion, reactive airway disease, peripheral vascular disease, congestive heart failure with an ejectio n fraction of 20%, chronic anemia, gastric ulcerations seen on upper endoscopy 1 month ago and recent diagnosis of a left pulmonary nodule presenting with anemia. He was recently admitted to the [facility] in 10/2017 with complaints of increased shortness of breath and weakness as well as possible upper gastrointestinal bleeding with hematemesis/melena. EGD performed at that time showed an ulceration at the angularis that was intervened upon with bipolar cautery. He was ultimately discharged home an d had been in his usual state of health until he was seen by his primary care physician. During the evaluation with his primary care physician, routine labs were drawn and he was noted to have a decrea sed H&H compared to his baseline when he was discharged from the hospital in 10/2017. He was notifie d by his primary care physician that he needed to report to the ER for further evaluation. He was brandon bsequently admitted to the hospital for workup related to this anemia; however, he currently denies a ny nausea, vomiting, fever, chills, abdominal pain, melena, hematemesis, hematochezia, weight loss, d ysphagia, odynophagia, or any evidence of bleeding in general prior to coming into this hospital. At this point, the primary reason why he is here at the hospital is "because my doctor told me to". Of note, during this hospitalization, he had a CT of the abdomen and pelvis performed, which showed a spiculated left lower lobe lesion concerning for a primary lung malignancy. He has been evaluated b y the Pulmonary service already and has refused any further intervention. Per my interview with the patient, he is currently refusing any intervention as well. REVIEW OF SYSTEMS: A ten-category review of systems was obtained with all responses negative except for the pertinent positives as listed in the HPI. PAST MEDICAL HISTORY: As per HPI. PAST SURGICAL HISTORY: Thoracentesis, upper endoscopy x2, colonoscopy, left hemiarthroplasty, right femoral central venous catheter placement, and subsequent removal. SOCIAL HISTORY: Remote history of smoking with greater than 18-[id number]-awgc history, but no current tob acco, alcohol, or illicit drug use. FAMILY HISTORY: Denies any GI malignancies. OUTPATIENT MEDICATIONS: Reviewed. ALLERGIES: No known drug allergies. PHYSICAL EXAMINATION: VITAL SIGNS: Temperature 98, pulse 84, blood pressure 168/70, respiratory rate 16, satting 98% on ro om air. GENERAL: Patient is lying in bed in no acute distress. Alert and oriented x4. NECK: Supple, no JVD noted. CARDIOVASCULAR: A 3/6 systolic murmur was heard at the left lower sternal border, but no discernible gallops or rubs. LUNGS: Clear to auscultation bilaterally with no discernible wheezes or rales. ABDOMEN: Normoactive bowel sounds, soft, nontender, nondistended. EXTREMITIES: No cyanosis, clubbing, or edema. LABORATORY DATA: CBC with a white blood cell count of 5.6, hemoglobin 7.7, hematocrit 23.2, platelet s 306. Chemistry with a sodium of 135, potassium 4.6, chloride 107, CO2 of 22, BUN 40, creatinine 2. 17, glucose 74. IMAGING DATA: Colonoscopy performed on 06/21/2017 showed mild diverticulosis of the right colon, but no abnormalities were seen during that examination. EGD performed on 10/28/2017 showed an angularis ulceration that was amenable to bipolar cautery with good hemostasis achieved. A CT of the abdomen and pelvis was performed on 11/26/2017, which showed an increased size of a spiculated left lower lob e lesion concerning for primary lung cancer. There was also a 7-mm hepatic nodule seen consistent wi th a simple cyst. CT of the chest obtained on 11/02/2017 showed persistence of a large volume right pleural effusion with adjacent consolidation. They also commented on a spiculated left lower lobe no dule indicative of malignancy. ASSESSMENT AND PLAN: The patient is an 87-year-old male with past medical history of coronary artery disease status post myocardial infarction; chronic kidney disease, stage 3; hypertension; reactive a irway disease; peripheral vascular disease; congestive heart failure with an EF of 20%; chronic anemi a; recent bleeding, gastric ulcer, status post electrocautery; and a new diagnosis of a left lower lo be pulmonary nodule concerning for malignancy presenting with anemia noted on routine labs. Anemia: The patient is presenting with a longstanding history of chronic anemia, for which he has re quired multiple blood transfusions within the last 12-18 months. More recently, he was admitted to [facility] in 10/2017 with complaints of hematochezia. At which point, he underwent an upper endosc opy which showed an ulceration along the incisura/angularis that was amenable to bipolar cautery with good hemostasis achieved. Since that time, he has had a decrease in his H&H, concerning for continu ed bleeding. However, he has no symptoms of hematemesis, hematochezia, or melena that would contribu te to that diagnosis. Furthermore evaluation using the BUN to creatinine ratio is not helpful given his chronic kidney disease. Furthermore, his MCV is normal on admission prior to blood transfusion, although his RDW is elevated again concerning for chronic gastrointestinal bleeding. At this time, h e has a mixed picture for possible chronic gastrointestinal bleeding with the most likely source bein g the duodenal ulcer that was seen approximately 1 month ago. However, at this time he is currently refusing any invasive intervention including upper endoscopy. RECOMMENDATIONS: 1. We would continue to trend H&H and transfuse as necessary to maintain an H&H of 7/. 2. Continue to monitor clinically for signs of active gastrointestinal bleeding. 3. We would continue patient on pantoprazole 40 mg daily for possible gastric ulceration and/or blee ding. 4. We will hold on upper endoscopy evaluation for now, given patient preference. We will continue to follow. Please call with any additional questions.
[2017-12-03 04:56] LABS: #Eosinphils 0.3 thou/uL (0.0-0.7); #Lymphocytes 1.5 thou/uL (1.20-3.40); #Monocytes 0.9 thou/uL (0.11-0.59); %Basophils 0.6 % (0.0-1.0); %Eosinophils 4.6 % (0.0-10.0); %Lymphocytes 21.9 % (21.0-51.0); %Monocytes 13.2 % (0.0-10.0); %Neutrophils 59.7 % (42.0-75.0); Hemoglobin 6.9 g/dL (14.0-18.0); Mean Corpuscular HGB CONC 32.1 g/dL (32.0-36.0); Mean Corpuscular Hemoglobin 26.7 pg (27.0-31.0); Mean Corpuscular Volume 83.1 fL (78.0-98.0); Mean Platelet Volume 7.6 fL (7.4-10.4); Platelet Count 277 thou/uL (130-400); Red Blood Cell (RBC) Count 2.57 mill/uL (4.70-6.10); White Blood Cell (WBC) Count 6.7 thou/uL (4.8-10.8)
[2017-12-03 05:13] LABS: Anion Gap 10 mmol/L (10-20); BUN (Urea Nitrogen) 34 mg/dL (8.4-25.7); Calc. Creatinine Clearance 27 mL/min (70-130); Calcium 8.9 mg/dL (7.8-10.44); Carbon Dioxide 20 mmol/L (23-31); Chloride 108 mmol/L (98-107); Estimated GFR-MDRD 36; Glucose 89 mg/dL (83-110); Potassium 4.1 mmol/L (3.5-5.1); Sodium 134 mmol/L (136-145)
--- NOTE | 2017-12-03 08:51 | PRG ---
DATE OF SERVICE: 12/03/2017 SUBJECTIVE: This is an 87-year-old gentleman being seen for acute kidney injury. The patient denies any nausea, vomiting or chest pain. PHYSICAL EXAMINATION: GENERAL: Patient is awake, alert. VITAL SIGNS: Afebrile, pulse 60, breathing 16, blood pressure 140/62. OBJECTIVE: See above. Awake, alert, in no acute distress. GENERAL APPEARANCE AND MENTAL STATUS: Fair. HEAD/NECK: Normocephalic. Atraumatic. EYES: EOMI. No deformity. EARS: Clear. No ulcers. NOSE: Intact. No lesions. MOUTH: Clear. No discharge. THROAT: Clear. No exudate. LUNGS: Clear. No crackles. CARDIAC: S1, S2. No rub. ABDOMEN: Benign. BS+. GENITALIA/RECTUM: Eye absent. BACK/EXTREMITIES: Edema 0+ Ulcer- NEUROLOGICAL: Alert and motor intact. SKIN: Rash- Bruise- LYMPHATICS: Edema- Ulcer- LABORATORY: Hemoglobin 6.9, potassium 4.1, creatinine 1.8. ASSESSMENT AND RECOMMENDATIONS: 1. Acute kidney injury, improved. 2. Hypertension, stable. 3. Chronic kidney disease 3, stable. 4. Anemia. Would recommend 2 units of packed red blood cell transfusion and follow up with Hematolo gy for outpatient Epogen infusion.
[2017-12-03] MEDS ORDERED: Aspirin 81 mg Enteric Coated Tablet PO SCH (09:00)
--- NOTE | 2017-12-03 09:12 | PRG ---
DATE OF SERVICE: 12/03/2017 This is an 87-year-old gentleman who apparently was admitted to the hospital with anem ia. It is unclear why he is in a monitored bed, but he denies any difficulty breathing, coughing or wheez ing. PHYSICAL EXAMINATION: VITAL SIGNS: Sats are 96% on room air, respirations 16, temperature 99, blood pressure 140/63. CHEST: Chest revealed decreased breath sounds, right greater than left. CARDIAC: Normal S1-S2. No gallops. ABDOMEN: Soft, no masses. LABORATORY: This morning his white count is 6,000, H&H is 6 and 21, platelet count is 277, creatinin e 1.87. He had a CT done of his chest which shows a large right pleural effusion and left lower lung spiculat ed nodule. IMPRESSION: 1. Recurrent right pleural effusion. 2. Anemia. 3. Renal failure. 4. Left lung nodule. PLAN: From a Pulmonary standpoint of view, does not need a thoracentesis. Regarding the left lung n odule, probably is neoplastic. No further workup at this time, unless the patient is interested in h aving additional treatment. It was noted. I will discuss with the family as they arrive.
[2017-12-03] MEDS: Iron Polysaccharides Complex 150 MG CAP PO SCH (09:29)
[2017-12-03] MEDS: Amlodipine 5 MG TAB PO SCH (09:30)
[2017-12-03] MEDS: hydrALAZINE 25 MG TAB PO SCH ×2 (09:31→21:13)
[2017-12-03] MEDS: Multivit, Therapeutic 1 TAB PO SCH (09:31)
[2017-12-03] MEDS: Isosorbide Dinitrate 5 MG TAB PO SCH ×2 (09:31→21:14)
[2017-12-03] MEDS: Carvedilol 6.25 MG TAB PO SCH ×2 (09:31→21:12)
[2017-12-03] MEDS: Sodium Bicarbonate Tab 325 MG TAB PO SCH ×3 (09:32→21:13)
--- NOTE | 2017-12-03 11:58 | PRG ---
DATE OF SERVICE: 12/03/2017 REASON FOR CONSULTATION: Anemia. SUBJECTIVE: The patient is doing well overnight with no acute events or problems. This morning, he states that he is doing well without any episodes of nausea, vomiting, fevers, chills, abdominal pain , hematemesis, melena, or hematochezia. He has not had a bowel movement in approximately 3 days. Up on interviewing the patient along with the patient's brother to help with translation, the patient do es continue to refuse any invasive intervention at this time. OBJECTIVE: VITAL SIGNS: Temperature 99, pulse 66, blood pressure 149/63, respiratory rate 16, satting 96% on ro om air. GENERAL: The patient lying in bed, in no acute distress. Alert and oriented x4. CARDIOVASCULAR: 3/6 systolic murmur best heard at the left lower sternal border. No discernible mur murs, gallops or rubs. LUNGS: Clear to auscultation bilaterally. ABDOMEN: Normoactive bowel sounds, soft, nontender, nondistended. EXTREMITIES: No cyanosis, clubbing or edema. LABORATORY DATA: CBC with white blood cell count of 6.7, hemoglobin 6.9, hematocrit 21.3, platelets 277. Chemistry with a sodium of 134, potassium 4.1, chloride 108, CO2 20, BUN 34, creatinine 1.8, gl ucose 89. IMAGING: No current GI imaging is available for review. ASSESSMENT AND PLAN: The patient is an 87-year-old male with past medical history of coronary artery disease status post myocardial infarction, chronic kidney disease stage 3, hypertension, reactive ai rway disease, peripheral vascular disease, congestive heart failure with an ejection fraction of 20%, chronic anemia, and a recent gastric ulcer status post electrocautery presenting with continued anem ia. Anemia: The patient is presenting with a longstanding history of chronic anemia which has required m ultiple blood transfusions over the last 12-18 months. More recently, he was admitted to the [facility] in 10/2017 with complaints of hematochezia, at which point he underwent an upper endoscopy which sh owed an ulceration along the incisura/angularis that was cauterized with bipolar cautery and good hem ostasis achieved. However, since that time, he continues to have a decrease in his H&H concerning fo r continued bleeding source; however, he has not had a bowel movement for the last 3 days, making a G I bleeding source a little less likely as it is an excellent cathartic and should generate either amarjit rrhea or melena or both. Also, of note, the patient was recently diagnosed with a spiculated lung le owen in the left lower lobe which could potentially generate anemia if it is indeed a neoplastic proc ess. More importantly, however, the patient is currently refusing all invasive therapies including u pper endoscopy for further evaluation of his anemia. RECOMMENDATIONS: 1. We would continue to trend H&H and transfuse as necessary to maintain an H&H of 12/05. 2. Continue to monitor clinically for signs of active gastrointestinal bleeding. 3. We would continue the patient on pantoprazole 40 mg daily for possible gastric ulceration and/or bleeding. 4. Upper endoscopy is not indicated at this time due to patient wishes, although it is recommended. We will sign off at this time. Please reconsult if the patient is amenable to upper endoscopy or if you have any additional questions.
[2017-12-03] MEDS ORDERED: Milk Of Magnesia 30 ML UDCUP PO PRN (12:44)
[2017-12-03] MEDS: Sodium Chloride 0.9% 1,000 ML IV SCH (15:50)
[2017-12-03] MEDS: Atorvastatin Calcium 20 MG TAB PO SCH (21:12)
[2017-12-03] MEDS: Temazepam 15 MG CAP PO SCH (21:14)
[2017-12-04 06:27] LABS: Anion Gap 12 mmol/L (10-20); BUN (Urea Nitrogen) 30 mg/dL (8.4-25.7); Calc. Creatinine Clearance 27 mL/min (70-130); Calcium 8.9 mg/dL (7.8-10.44); Carbon Dioxide 19 mmol/L (23-31); Chloride 109 mmol/L (98-107); Estimated GFR-MDRD 37; Glucose 78 mg/dL (83-110); Potassium 5.3 mmol/L (3.5-5.1); Sodium 135 mmol/L (136-145)
[2017-12-04 07:40] LABS: #Eosinphils 0.3 thou/uL (0.0-0.7); #Lymphocytes 1.4 thou/uL (1.20-3.40); #Monocytes 0.8 thou/uL (0.11-0.59); #Neutrophils 5.5 thou/uL (1.40-6.50); %Basophils 0.3 % (0.0-1.0); %Eosinophils 4.2 % (0.0-10.0); %Lymphocytes 17.1 % (21.0-51.0); %Monocytes 9.7 % (0.0-10.0); %Neutrophils 68.8 % (42.0-75.0); Hemoglobin 11.3 g/dL (14.0-18.0); Mean Corpuscular HGB CONC 32.5 g/dL (32.0-36.0); Mean Corpuscular Hemoglobin 28.1 pg (27.0-31.0); Mean Corpuscular Volume 86.3 fL (78.0-98.0); Mean Platelet Volume 7.3 fL (7.4-10.4); Platelet Count 278 thou/uL (130-400); RBC Distribution Width 16.3 % (11.5-14.5); Red Blood Cell (RBC) Count 4.04 mill/uL (4.70-6.10)
--- NOTE | 2017-12-04 08:50 | PRG ---
DATE OF SERVICE: 12/04/2017 Aaron Russell this morning is awake, alert, responsive, less short of breath. He refused endoscopy and refused further workup regarding his left lung nodule. This may be neoplastic. It is only 9 mm , but it has grown in 6 months. His right-sided pleural effusion is stable. PHYSICAL EXAMINATION: VITAL SIGNS: Sats are 100% on room air, temperature 98, blood pressure 150/67. CHEST: Chest revealed decreased breath sounds, no wheezing. CARDIAC: Normal S1-S2. No gallops. ABDOMEN: Soft, no masses. LABORATORY: H&H is stable at 11 and 34, creatinine 1.7. IMPRESSION: 1. Gastrointestinal bleed, refuses endoscopy. H&H is stable. 2. Chronic renal failure. 3. Chronic right pleural effusion. 4. Left lung nodule, slowly increasing. PLAN: At this stage he can be discharged home. Pulmonary Critical Care will follow at a distance. Please call as needed, particularly if he is agreeable to have a biopsy of his right lung nodule.
[2017-12-04] MEDS: Iron Polysaccharides Complex 150 MG CAP PO SCH (09:44)
[2017-12-04] MEDS: Isosorbide Dinitrate 5 MG TAB PO SCH (09:44)
[2017-12-04] MEDS: Carvedilol 6.25 MG TAB PO SCH (09:45)
[2017-12-04] MEDS: hydrALAZINE 25 MG TAB PO SCH (09:46)
[2017-12-04] MEDS: Amlodipine 5 MG TAB PO SCH (09:46)
[2017-12-04] MEDS: Sodium Bicarbonate Tab 325 MG TAB PO SCH (09:48)
[2017-12-04] MEDS: Multivit, Therapeutic 1 TAB PO SCH (09:48)
[2017-12-04 10:00] LABS: Anion Gap 10 mmol/L (10-20); BUN (Urea Nitrogen) 30 mg/dL (8.4-25.7); Calc. Creatinine Clearance 26 mL/min (70-130); Carbon Dioxide 23 mmol/L (23-31); Chloride 108 mmol/L (98-107); Estimated GFR-MDRD 35; Glucose 116 mg/dL (83-110); Potassium 4.5 mmol/L (3.5-5.1); Sodium 136 mmol/L (136-145)
--- NOTE | 2017-12-04 10:37 | PRG ---
DATE OF SERVICE: 12/04/2017 SUBJECTIVE: This is an 87-year-old gentleman being seen for acute kidney injury. The patient denies any nausea, vomiting, or chest pain. PHYSICAL EXAMINATION: GENERAL: Patient is awake, alert. VITAL SIGNS: Afebrile, pulse 20, breathing 16, blood pressure 150/67. OBJECTIVE: See above. Awake, alert, in no acute distress. GENERAL APPEARANCE AND MENTAL STATUS: Fair. HEAD/NECK: Normocephalic. Atraumatic. EYES: EOMI. No deformity. EARS: Clear. No ulcers. NOSE: Intact. No lesions. MOUTH: Clear. No discharge. THROAT: Clear. No exudate. LUNGS: Clear. No crackles. CARDIAC: S1, S2. No rub. ABDOMEN: Benign. BS+. GENITALIA/RECTUM: Yee absent. BACK/EXTREMITIES: Edema 0+ Ulcer- NEUROLOGICAL: Alert and motor intact. SKIN: Rash- Bruise- LYMPHATICS: Edema- Ulcer- LABORATORY DATA: Hemoglobin 11.3, potassium is 4.5. ASSESSMENT AND PLAN: 1. Acute kidney injury, stable. 2. Hypertension, stable. 3. Anemia, stable. 4. Hyperkalemia, ____ stable. 5. Metabolic acidosis, stable. The patient can be discharged.
[2017-12-04 12:33] VITALS: BP 138/63; TEMP 98.5
--- NOTE | 2017-12-08 07:09 | DIS ---
DATE OF ADMISSION: 12/01/2017 DATE OF DISCHARGE: 12/04/2017 ADMITTING DIAGNOSES: 1. Severe anemia with a drop in hemoglobin and hematocrit. 2. Hyperkalemia. 3. Acute kidney injury. 4. Chronic kidney disease stage 4. 5. Hyponatremia. 6. Pulmonary nodule, spiculated left lower lobe, possible malignancy. 7. Coronary artery disease, triple vessel, not a candidate for surgery. 8. Decreased left ventricular function with EF greater than 20%. 9. Chronic right pleural effusion and peripheral vascular disease. FINAL DIAGNOSES: 1. Severe anemia with a drop in hemoglobin and hematocrit, status post transfusion. 2. Hyperkalemia, corrected. 3. Acute kidney injury, improved. 4. Chronic kidney disease stage 4. 5. Hyponatremia, corrected. 6. Pulmonary nodule, spiculated left lower lobe, possible malignancy. The patient declined any work up. 7. Coronary artery disease, triple vessel, not a candidate for surgery. 8. Chronic right pleural effusion. BRIEF SUMMARY OF HOSPITAL COURSE: Mr. Russell is an 87-year-old, male admitted because of decrease in hemoglobin and severe anemia with hemoglobin dropped below 7 to 6.3, and also had hyperka lemia with a potassium of 5.8. In view of that, the patient was sent to the hospital. He was admitt ed and was transfused initially with 1 unit. His hemoglobin improved to 7.7, but it dropped to 6.9 a gain, and hence, he was transfused again with 2 units and it went up to 11 grams. He was given Kayex alate and potassium came down to 4.6 and stayed around 4.5. The patient's renal function also improv ed. His creatinine was 2.6 on admission, came down to 1.85 with fluids. His GFR improved from 23 to 35. The patient was found to have nodule in the left lung, possibly malignant. Pulmonary consult w as done. The patient was seen by Dr. Kelley, who suggested possible biopsy for diagnosis, but the p atient declined any kind of workup. So, in view of correction of his hemoglobin and hyperkalemia, bryce william is being discharged home. At the time of discharge, he was stable. His vital signs were stable. Lungs were clear. Heart sounds regular. Abdomen was soft and nontender. Bowel sounds present. DISCHARGE MEDICATIONS: Include simvastatin 40 mg daily, hydralazine 50 b.i.d., multivitamin daily, P rotonix 40 mg daily, Coreg 12.5 b.i.d., isosorbide dinitrate 10 mg b.i.d., aspirin 81 mg daily, Norva sc 5 mg daily, Tylenol p.r.n., Niferex 150 mg daily, furosemide was discontinued, Restoril 15 mg at b edtime, milk of magnesia p.r.n., sodium bicarbonate 650 t.i.d. FOLLOWUP: The patient will come for followup in 2 weeks.
== END 2017-12-04 13:46 | disposition home or self-care (01) | DRG 683 ==
LOC: ERS 16:09 → 2NO 18:24
PROVIDERS: ADMIT Internal Medicine; ATTEND Internal Medicine
PROC: 30233N1 Transfusion of Nonautologous Red Blood Cells into Peripheral Vein, Percutaneous Approach (ICD-10-PCS; principal; 2017-12-01)
DX: N17.9 Acute kidney failure, unspecified (principal); I13.0 Hypertensive heart and chronic kidney disease with heart failure and stage 1 through stage 4 chronic kidney disease, or unspecified chronic kidney disease; I50.22 Chronic systolic (congestive) heart failure; E87.2 Acidosis; E87.1 Hypo-osmolality and hyponatremia; K92.2 Gastrointestinal hemorrhage, unspecified; N18.4 Chronic kidney disease, stage 4 (severe); Z87.891 Personal history of nicotine dependence; E87.5 Hyperkalemia; I25.10 Atherosclerotic heart disease of native coronary artery without angina pectoris; I73.9 Peripheral vascular disease, unspecified; I25.2 Old myocardial infarction; Z79.82 Long term (current) use of aspirin; D63.1 Anemia in chronic kidney disease; J44.9 Chronic obstructive pulmonary disease, unspecified; H54.61 Unqualified visual loss, right eye, normal vision left eye; R91.1 Solitary pulmonary nodule
CPT/HCPCS: 36415; 36430; 71250; 80048; 85025; 86850; 86900; 86901; 96361; 96374; A4216; C9113; P9016

== ENCOUNTER 2018-02-09 13:45 | Inpatient (IN) | payer MEDICARE, MEDICAID ==
--- NOTE | 2018-02-09 15:24 | RAD ---
AP CHEST: Indication: Weakness. Comparison: 10-26-17 FINDINGS: Small right pleural effusion persists. There is a stable left lung pulmonary nodule, better seen on C T examination of 12-02-17. Bibasilar opacity possibly reflecting an atelectasis is stable. Heart size is normal. No acute osseous abnormality is evident. IMPRESSION: Stable examination of the chest. POS: [facility]
[2018-02-09 15:27] LABS: #Eosinphils 0.2 thou/uL (0.0-0.7); #Lymphocytes 1.5 thou/uL (1.20-3.40); #Monocytes 0.8 thou/uL (0.11-0.59); #Neutrophils 5.1 thou/uL (1.40-6.50); %Basophils 0.3 % (0.0-1.0); %Eosinophils 2.2 % (0.0-10.0); %Lymphocytes 20.2 % (21.0-51.0); %Monocytes 10.4 % (0.0-10.0); Mean Corpuscular Hemoglobin 27.2 pg (27.0-31.0); Mean Corpuscular Volume 84.8 fL (78.0-98.0); Mean Platelet Volume 7.1 fL (7.4-10.4); Platelet Count 421 thou/uL (130-400); White Blood Cell (WBC) Count 7.6 thou/uL (4.8-10.8)
[2018-02-09 15:50] LABS: ALT (SGPT) 13 U/L (8-55); AST (SGOT) 19 U/L (5-34); Albumin 3.9 g/dL (3.4-4.8); Alkaline Phosphatase 60 U/L (40-150); Anion Gap 14 mmol/L (10-20); BUN (Urea Nitrogen) 45 mg/dL (8.4-25.7); Bilirubin, Total 0.3 mg/dL (0.2-1.2); CK (CPK) 33 U/L (30-200); Calc. Creatinine Clearance 0 mL/min (70-130); Calcium 10.7 mg/dL (7.8-10.44); Carbon Dioxide 16 mmol/L (23-31); Chloride 111 mmol/L (98-107); Estimated GFR-MDRD 30; Globulin 4.1 g/dL (2.4-3.5); Glucose 93 mg/dL (83-110); Lipase 85 U/L (8-78); Sodium 134 mmol/L (136-145)
[2018-02-09 15:54] LABS: Potassium 6.8 mmol/L (3.5-5.1)
[2018-02-09 15:57] LABS: CKMB 2.5 ng/mL (0-6.6); Troponin I Less than 0.010 ng/mL (< 0.028)
[2018-02-09] MEDS ORDERED: Calcium Chloride 1 GM/10 ML Abboject SYRINGE ONE (16:05)
[2018-02-09] MEDS ORDERED: Sodium Bicarb 50 MEQ/50 ML Abboject 8.4% SYRINGE ONE ×3 (16:05→18:44)
[2018-02-09] MEDS ORDERED: Dextrose 50% Abboject 50 ML SYRINGE ONE (16:05)
[2018-02-09] MEDS ORDERED: Furosemide 40 MG/4 ML VIAL ONE (16:05)
[2018-02-09] MEDS ORDERED: Insulin Regular 300 UNITS/3 ML VIAL ONE (16:05)
[2018-02-09] MEDS ORDERED: Calcium Gluc 4.6 MEQ/10 ML (100 MG/ML) ONE (16:13)
[2018-02-09 16:24] LABS: Bilirubin Negative (Negative); Blood, Urine Negative (Negative); Clarity CLEAR (Clear); Glucose, Urine (Dipstick) Negative (Negative); Leukocyte Negative (Negative); Nitrite Negative (Negative); Protein, Urine (Dipstick) Negative (Neg-Trace); Specific Gravity, Urine 1.009 (1.002-1.036); Urobilinogen 0.2 mg/dL (0.2-1.0)
[2018-02-09 18:06] LABS: Anion Gap 11 mmol/L (10-20); BUN (Urea Nitrogen) 43 mg/dL (8.4-25.7); Calc. Creatinine Clearance 0 mL/min (70-130); Calcium 10.3 mg/dL (7.8-10.44); Carbon Dioxide 19 mmol/L (23-31); Chloride 112 mmol/L (98-107); Estimated GFR-MDRD 33; Glucose 71 mg/dL (83-110); Potassium 5.4 mmol/L (3.5-5.1); Sodium 137 mmol/L (136-145)
[2018-02-09 21:01] VITALS: BMI 21.3
[2018-02-09 23:16] LABS: Anion Gap 14 mmol/L (10-20); BUN (Urea Nitrogen) 42 mg/dL (8.4-25.7); Calc. Creatinine Clearance 22 mL/min (70-130); Calcium 10.2 mg/dL (7.8-10.44); Carbon Dioxide 20 mmol/L (23-31); Chloride 112 mmol/L (98-107); Estimated GFR-MDRD 32; Glucose 168 mg/dL (83-110); Potassium 4.9 mmol/L (3.5-5.1); Sodium 141 mmol/L (136-145)
--- NOTE | 2018-02-10 02:32 | CON ---
DATE OF CONSULTATION: 02/09/2018 REASON FOR CONSULTATION: Hyperkalemia and acidosis. HISTORY OF PRESENT ILLNESS: This is a very pleasant 88-year-old noncompliant gentleman who does not follow up in clinic and has had multiple episodes of hyperkalemia, presented to the hospital with weakness. The patient had a potassium of 6.8. The patient has excessive potassium intake. The patient has had multiple episodes of acute kidney failure. Denies any complaint like diarrhea, nausea, vomiting or any NSAID use. PAST MEDICAL HISTORY: Significant for COPD, CKD stage 4, ATN, pleural effusion , hypertension, COPD, blind in the right eye, hyperkalemia. SOCIAL HISTORY: No alcohol or drug use. FAMILY HISTORY: Negative for ESRD. HOME MEDICATIONS: List reviewed. HOSPITAL MEDICATIONS: List reviewed. REVIEW OF SYSTEMS: A 15-point review of systems was performed and negative except positives noted above. GENERAL: Weakness- HEAD: Headache- NECK: No swelling or lumps. NOSE: No epistaxis or discharge. EYES: No diplopia or pain. RESPIRATORY: Dyspnea- CARDIOVASCULAR: Chest pain- GASTROINTESTINAL: Nausea- /QUILL COLLECTOR: Hematuria- MUSCULOSKELETAL: No joint pain. NEUROPSYCHIATIC SYSTEMS: No suicidal ideation. No ideation. SKIN: Denies any rash or ulcer. CONSTITUTIONAL: No fever or chills. PHYSICAL EXAMINATION: GENERAL: Patient is awake, alert. VITAL SIGNS: Afebrile, pulse 75, breathing 16, blood [id number]. HEAD/NECK: Normocephalic. Atraumatic. EYES: EOMI. No deformity. EARS: Clear. No ulcers. NOSE: Intact. No lesions. MOUTH: Clear. No discharge. THROAT: Clear. No exudate. LUNGS: Clear. No crackles. CARDIAC: S1, S2. No rub. ABDOMEN: Benign. BS+. GENITALIA/RECTUM: Yee absent. BACK/EXTREMITIES: Edema 0+ Ulcer- NEUROLOGICAL: Alert and motor intact. SKIN: Rash- Bruise- LYMPHATICS: Edema- Ulcer- LABORATORY DATA: Potassium 6.8, creatinine 2.2. ASSESSMENT AND RECOMMENDATIONS: 1. Acute kidney injury with chronic kidney disease, most likely due to decreased effective arterial blood volume. Start hydration. 2. Hyperkalemia. We will give bicarbonate and Kayexalate. We will plan dialysis. 3. Anemia, stable. Medications based on glomerular filtration rate are appropriate. 4. Acidosis. Start bicarbonate. Overall, prognosis is poor. No urgent indication for dialysis. We will recheck labs again and consider renal replacement therapy. MTDD
[2018-02-10 05:33] LABS: Anion Gap 12 mmol/L (10-20); BUN (Urea Nitrogen) 43 mg/dL (8.4-25.7); Calc. Creatinine Clearance 22 mL/min (70-130); Calcium 10.1 mg/dL (7.8-10.44); Carbon Dioxide 21 mmol/L (23-31); Chloride 112 mmol/L (98-107); Estimated GFR-MDRD 32; Glucose 77 mg/dL (83-110); Potassium 5.2 mmol/L (3.5-5.1); Sodium 140 mmol/L (136-145)
[2018-02-10] MEDS: Sodium Chloride 0.45% 1,000 ML IV SCH ×2 (10:00→21:55)
--- NOTE | 2018-02-10 12:21 | HP ---
REASON FOR ADMISSION/CHIEF COMPLAINT: Weakness, dizziness, possible anemia. HISTORY OF PRESENT ILLNESS: Mr. Russell is an 88-year-old male with past medical history of chronic anemia, CKD, coronary artery disease who was sent to the hospital because of weakness. The patient had previously acute kidney injury with chronic kidney disease and anemia. Because of his symptoms, he was sent to the hospital for evaluation. The patient also complained of some dizziness, but no shortness of breath, no chest pain, no GI bleeding. The patient was evaluated in the ER. His hemoglobin was stable at 9 grams, but his potassium was very high, 6.8 with acute kidney injury. The patient received IV fluids and Kayexalate as well as acute treatment of hyperkalemia with sodium bicarbonate, insulin and dextrose and also received calcium gluconate and the patient was admitted for further evaluation and management. PAST MEDICAL HISTORY: 1. Hypertension. 2. Hyperlipidemia. 3. Chronic kidney disease stage 3. 4. Coronary artery disease, triple vessel. Not a candidate for surgery. 5. Reactive airway disease. 6. Right pleural effusion, chronic. 7. Peripheral vascular disease. 8. History of CHF with decrease ventricular function, ejection fraction of 20% . 9. Left lung pulmonary nodule, possibly malignant. PAST SURGICAL HISTORY: Nothing significant. CURRENT MEDICATIONS: The patient is on hydralazine 50 b.i.d., temazepam 15 mg at bedtime, sodium bicarbonate 605 mg t.i.d., Zocor 40 mg daily, Protonix 40 mg daily, multivitamin daily, Milk of Magnesia p.r.n., Ambien 10 mg b.i.d., Niferex 150 daily, Lasix 20 mg daily, Coreg 12.5 b.i.d., aspirin 81 mg daily, amlodipine 5 mg, Tylenol p.r.n. ALLERGIES: No known drug allergies. FAMILY HISTORY: Nothing of interest. SOCIAL HISTORY: Patient lives with family. No history of alcohol intake. No history of smoking. REVIEW OF SYSTEMS: CARDIOVASCULAR: No chest pain or shortness of breath. RESPIRATORY: No fever or cough. GASTROINTESTINAL: No abdominal pain. No diarrhea or vomiting. CENTRAL NERVOUS SYSTEM: No headache. Feels dizzy. PHYSICAL EXAMINATION: GENERAL: The patient is alert, awake, oriented x3. VITAL SIGNS: Temperature 98, pulse 88, respirations 20, blood pressure 170/50. HEENT: Head is normocephalic, atraumatic. Pupils equal and reactive to light. Nasopharynx is pale and dry. Hard and soft palate, no lesions seen. SKIN: Skin turgor decreased. NECK: Supple. No JVD. LUNGS: Breath sounds diminished bilaterally. Percussion not dull, no rales, no rhonchi. CARDIAC: S1, S2 regular. ABDOMEN: Soft, no distention, no tenderness. Normal bowel sounds. RECTAL EXAM: Deferred. EXTREMITIES: No edema. NEUROLOGIC: No focal deficit. LABORATORY AND X-RAY FINDINGS: CBC shows WBC 7.6, hemoglobin 9, hematocrit 28, platelets 421. Metabolic panel: Sodium 134, potassium 6.8, chloride 111, CO2 16, BUN 45, creatinine 2, glucose 93, CK-MB 2.5, troponin less than 0.010. Chest x-ray shows no acute cardiopulmonary abnormalities seen. EKG showed normal sinus rhythm, no acute ST-T wave changes seen. T-waves are normal. ASSESSMENT: 1. Severe hyperkalemia. 2. Acute kidney injury with chronic kidney disease stage 3. 3. Hypertension, uncontrolled. 4. Hyperlipidemia. 5. Coronary artery disease, triple vessel, not a candidate for surgery. 6. Right pleural effusion, chronic. 7. Pulmonary nodule, possible malignant. 8. History of congestive heart failure with decreased left ventricular functions to 20%. 9. Metabolic acidosis PLAN: 1. Vital signs q.8h. 2. Activity as tolerated. 3. Allergies: NKDA 4. IV fluids 1/2 normal at 80 mL per hour. 5. Kayexalate 15 grams daily, 15 grams 1 dose. 6. Renal diet. 7. Continue home medications. 8. Repeat labs. 9. Nephrology consult. [facility]
--- NOTE | 2018-02-10 17:03 | EKG ---
Test Reason : Blood Pressure : / mmHG Vent. Rate : 084 BPM Atrial Rate : 084 BPM P-R Int : 206 ms QRS Dur : 100 ms QT Int : 328 ms P-R-T Axes : 077 042 -51 degrees QTc Int : 387 ms Normal sinus rhythm Possible Left atrial enlargement Cannot rule out Inferior infarct , age undetermined Abnormal ECG Confirmed by MISHEL DOLAN, DR. Helms ([id number]) on 02/10/2018 5:03:06 PM Referred By: Confirmed By:DR. Scooter FLORENTINO MD
[2018-02-10 17:33] LABS: Anion Gap 13 mmol/L (10-20); BUN (Urea Nitrogen) 41 mg/dL (8.4-25.7); Calc. Creatinine Clearance 20 mL/min (70-130); Calcium 9.7 mg/dL (7.8-10.44); Carbon Dioxide 20 mmol/L (23-31); Chloride 109 mmol/L (98-107); Estimated GFR-MDRD 29; Glucose 121 mg/dL (83-110); Potassium 4.9 mmol/L (3.5-5.1); Sodium 137 mmol/L (136-145)
--- NOTE | 2018-02-10 17:48 | PRG ---
DATE OF SERVICE: 02/10/2018 SUBJECTIVE: An 88-year-old gentleman being seen for acute kidney injury. The patient denies any nikunj sea, vomiting, or chest pain. PHYSICAL EXAMINATION: GENERAL: The patient is awake and alert. VITAL SIGNS: Afebrile, pulse 81, breathing 16, blood pressure 131/63. GENERAL APPEARANCE AND MENTAL STATUS: Fair. HEAD/NECK: Normocephalic. Atraumatic. EYES: EOMI. No deformity. EARS: Clear. No ulcers. NOSE: Intact. No lesions. MOUTH: Clear. No discharge. THROAT: Clear. No exudate. LUNGS: Clear. No crackles. CARDIAC: S1, S2. No rub. ABDOMEN: Benign. BS+. GENITALIA/RECTUM: Yee absent. BACK/EXTREMITIES: Edema 0+. Ulcer-. NEUROLOGICAL: Alert and motor intact. SKIN: Rash-. Bruise-. LYMPHATICS: Edema-. Ulcer- LABORATORY DATA: Hemoglobin 9. Potassium 5.2, creatinine 2.01. ASSESSMENT AND RECOMMENDATIONS: 1. Acute kidney injury, improved. 2. Hypertension, stable. 3. Anemia, stable. 4. Chronic kidney disease, stage 3, stable. 5. Acute tubular necrosis, improved. 6. Hyperkalemia. Recommend low-potassium diet. Recheck potassium again.
[2018-02-10] MEDS: hydrALAZINE 25 MG TAB PO SCH (20:06)
[2018-02-10] MEDS: Atorvastatin Calcium 20 MG TAB PO SCH (20:07)
[2018-02-10] MEDS: Temazepam 15 MG CAP PO SCH (20:07)
[2018-02-10] MEDS: Carvedilol 6.25 MG TAB PO SCH (20:07)
[2018-02-11] MEDS ORDERED: Acetaminophen 325 MG TAB PO PRN (03:56)
[2018-02-11 05:02] LABS: #Eosinphils 0.4 thou/uL (0.0-0.7); #Lymphocytes 1.4 thou/uL (1.20-3.40); #Monocytes 0.8 thou/uL (0.11-0.59); #Neutrophils 3.7 thou/uL (1.40-6.50); %Basophils 0.7 % (0.0-1.0); %Eosinophils 5.8 % (0.0-10.0); %Lymphocytes 22.2 % (21.0-51.0); %Monocytes 12.3 % (0.0-10.0); Hemoglobin 7.5 g/dL (14.0-18.0); Mean Corpuscular HGB CONC 31.4 g/dL (32.0-36.0); Mean Corpuscular Hemoglobin 26.8 pg (27.0-31.0); Mean Corpuscular Volume 85.3 fL (78.0-98.0); Mean Platelet Volume 7.5 fL (7.4-10.4); Platelet Count 346 thou/uL (130-400); RBC Distribution Width 15.9 % (11.5-14.5); White Blood Cell (WBC) Count 6.3 thou/uL (4.8-10.8)
[2018-02-11 05:24] LABS: Anion Gap 11 mmol/L (10-20); BUN (Urea Nitrogen) 37 mg/dL (8.4-25.7); Calc. Creatinine Clearance 22 mL/min (70-130); Calcium 9.4 mg/dL (7.8-10.44); Carbon Dioxide 18 mmol/L (23-31); Chloride 110 mmol/L (98-107); Estimated GFR-MDRD 31; Glucose 94 mg/dL (83-110); Potassium 4.4 mmol/L (3.5-5.1); Sodium 135 mmol/L (136-145)
[2018-02-11] MEDS: Multivit, Therapeutic 1 TAB PO SCH (08:43)
[2018-02-11] MEDS: Carvedilol 6.25 MG TAB PO SCH ×2 (08:43→20:10)
[2018-02-11] MEDS: hydrALAZINE 25 MG TAB PO SCH ×2 (08:43→20:11)
[2018-02-11] MEDS: Amlodipine 5 MG TAB PO SCH (08:43)
[2018-02-11] MEDS ORDERED: Epoetin (ESRD) 10,000 UNITS/ML VIAL SC SCH (09:00)
--- NOTE | 2018-02-11 09:12 | PRG ---
DATE OF SERVICE: 02/11/2018 SUBJECTIVE: This is an 88-year-old gentleman being seen for acute kidney injury. The patient denies any nausea, vomiting or chest pain. PHYSICAL EXAMINATION: GENERAL: Patient is awake. VITAL SIGNS: Afebrile, pulse 81, breathing 16, blood pressure 180/53. OBJECTIVE: See above. Awake, alert, in no acute distress. GENERAL APPEARANCE AND MENTAL STATUS: Fair. HEAD/NECK: Normocephalic. Atraumatic. EYES: EOMI. No deformity. EARS: Clear. No ulcers. NOSE: Intact. No lesions. MOUTH: Clear. No discharge. THROAT: Clear. No exudate. LUNGS: Clear. No crackles. CARDIAC: S1, S2. No rub. ABDOMEN: Benign. BS+. GENITALIA/RECTUM: Yee absent. BACK/EXTREMITIES: Edema 0+ Ulcer- NEUROLOGICAL: Alert and motor intact. SKIN: Rash- Bruise- LYMPHATICS: Edema- Ulcer- LABORATORY: Hemoglobin 7.5, creatinine 2.03. ASSESSMENT AND PLAN: 1. Acute kidney injury/chronic kidney disease stable. 2. Hypertension, stable. 3. Anemia, stable. 4. Hyperkalemia, improved. 5. Metabolic acidosis. Recommend sodium bicarbonate. 6. Anemia. Would recommend a Hematology consult and follow up with Dr. Bonilla.
[2018-02-11] MEDS: Sodium Chloride 0.45% 1,000 ML IV SCH (13:28)
[2018-02-11] MEDS ORDERED: Lidocaine 1% w/Epinephrine 1:100K 30 ML VIAL ONE (18:11)
[2018-02-11] MEDS: Atorvastatin Calcium 20 MG TAB PO SCH (20:11)
[2018-02-11] MEDS: Temazepam 15 MG CAP PO SCH (20:12)
[2018-02-12] MEDS: Sodium Chloride 0.45% 1,000 ML IV SCH (00:19)
[2018-02-12 05:08] LABS: #Eosinphils 0.6 thou/uL (0.0-0.7); #Lymphocytes 1.5 thou/uL (1.20-3.40); #Monocytes 0.7 thou/uL (0.11-0.59); #Neutrophils 3.8 thou/uL (1.40-6.50); %Basophils 0.5 % (0.0-1.0); %Eosinophils 8.8 % (0.0-10.0); %Lymphocytes 23.2 % (21.0-51.0); %Monocytes 10.9 % (0.0-10.0); %Neutrophils 56.5 % (42.0-75.0); Hemoglobin 7.3 g/dL (14.0-18.0); Mean Corpuscular HGB CONC 32.2 g/dL (32.0-36.0); Mean Corpuscular Hemoglobin 27.5 pg (27.0-31.0); Mean Corpuscular Volume 85.3 fL (78.0-98.0); Mean Platelet Volume 7.8 fL (7.4-10.4); Platelet Count 325 thou/uL (130-400); RBC Distribution Width 15.8 % (11.5-14.5); Red Blood Cell (RBC) Count 2.67 mill/uL (4.70-6.10); White Blood Cell (WBC) Count 6.6 thou/uL (4.8-10.8)
[2018-02-12 05:39] LABS: Anion Gap 9 mmol/L (10-20); BUN (Urea Nitrogen) 37 mg/dL (8.4-25.7); Calc. Creatinine Clearance 22 mL/min (70-130); Calcium 9.1 mg/dL (7.8-10.44); Carbon Dioxide 20 mmol/L (23-31); Chloride 110 mmol/L (98-107); Estimated GFR-MDRD 31; Glucose 79 mg/dL (83-110); Potassium 4.1 mmol/L (3.5-5.1); Sodium 135 mmol/L (136-145)
[2018-02-12 07:46] VITALS: BP 146/63; TEMP 97.5
[2018-02-12] MEDS: hydrALAZINE 25 MG TAB PO SCH (08:29)
[2018-02-12] MEDS: Amlodipine 5 MG TAB PO SCH (08:30)
[2018-02-12] MEDS: Multivit, Therapeutic 1 TAB PO SCH (08:30)
[2018-02-12] MEDS: Carvedilol 6.25 MG TAB PO SCH (08:31)
--- NOTE | 2018-02-12 11:14 | PRG ---
DATE OF SERVICE: 02/12/2018 SUBJECTIVE: An 88-year-old gentleman being seen for acute kidney injury. The patient denies any nikunj sea, vomiting, or chest pain. PHYSICAL EXAMINATION: GENERAL: Patient is awake, alert. VITAL SIGNS: Afebrile, pulse 59, breathing at 16, blood pressure 146/60. OBJECTIVE: See above. Awake, alert, in no acute distress. GENERAL APPEARANCE AND MENTAL STATUS: Fair. HEAD/NECK: Normocephalic. Atraumatic. EYES: EOMI. No deformity. EARS: Clear. No ulcers. NOSE: Intact. No lesions. MOUTH: Clear. No discharge. THROAT: Clear. No exudate. LUNGS: Clear. No crackles. CARDIAC: S1, S2. No rub. ABDOMEN: Benign. BS+. GENITALIA/RECTUM: Yee absent. BACK/EXTREMITIES: Edema 0+ Ulcer- NEUROLOGICAL: Alert and motor intact. SKIN: Rash- Bruise- LYMPHATICS: Edema- Ulcer- LABORATORY: Hemoglobin 7.3, creatinine 2.0. ASSESSMENT AND RECOMMENDATIONS: 1. Chronic kidney disease stage 3, stable. 2. Hypertension, stable. 2. Anemia, started on Epogen. The patient will need Hematology follow up as an outpatient.
--- NOTE | 2018-02-15 13:01 | DIS ---
DATE OF ADMISSION: 02/09/2018 DATE OF DISCHARGE: 02/12/2018 ADMITTING DIAGNOSES: 1. Severe hyperkalemia. 2. Acute kidney injury with chronic kidney disease, stage 3. 3. Uncontrolled hypertension. 4. Hyperlipidemia. 5. Chronic anemia. 6. Coronary artery disease, triple-vessel disease, not a candidate for surgery. 7. Chronic right pleural effusion, pulmonary nodule, possible malignant. 8. Metabolic acidosis. FINAL DIAGNOSES: 1. Severe hyperkalemia, corrected. 2. Acute kidney injury with chronic kidney disease, stage 3; improved. 3. Hypertension, uncontrolled, improved. 4. Hyperlipidemia. 5. Coronary artery disease, not a candidate for surgery. 6. Chronic right pleural effusion with again pulmonary nodule. BRIEF SUMMARY OF HOSPITAL COURSE: Mr. Russell is an 88-year-old male admitted because of w eakness, dizziness. Patient was found to be severely hyperkalemic with acute kidney injury on the to p of chronic kidney disease. Patient's potassium was 6.8, after just corrected, it came down to 4.1. His creatinine was also slightly high, as well as BUN, which came down with fluids. Patient also h as chronic anemia. Hemoglobin stayed around 7.5 to 7.3 grams. Patient has been feeling very well. He did not have any more dizziness or shortness of breath. No weakness and he is tolerating diet nicole y well. So, in view of improvement, the patient was discharged. At the time of discharge, he was st able. Vital signs were stable. Lungs were clear. Heart sounds normal. Abdomen was soft, nontender . Bowel sounds present. DISCHARGE MEDICATIONS: include simvastatin 40 mg daily, hydralazine 50 b.i.d., multivitamin daily, P rotonix 40 mg daily, Coreg 12.5 b.i.d., amlodipine 5 mg daily, Lasix 20 mg daily, Restoril 15 mg at b edtime, trazodone 50 mg at bedtime. FOLLOWUP: The patient will come for followup in 2 weeks.
== END 2018-02-12 11:27 | disposition home or self-care (01) | DRG 640 ==
LOC: ERS 13:45 → 2NO 20:50
PROVIDERS: ADMIT Internal Medicine; ATTEND Internal Medicine
DX: E87.5 Hyperkalemia (principal); N17.0 Acute kidney failure with tubular necrosis; I13.0 Hypertensive heart and chronic kidney disease with heart failure and stage 1 through stage 4 chronic kidney disease, or unspecified chronic kidney disease; N18.4 Chronic kidney disease, stage 4 (severe); E87.2 Acidosis; I25.10 Atherosclerotic heart disease of native coronary artery without angina pectoris; I50.9 Heart failure, unspecified; E78.5 Hyperlipidemia, unspecified; J45.909 Unspecified asthma, uncomplicated; I73.9 Peripheral vascular disease, unspecified; R91.1 Solitary pulmonary nodule; Z79.82 Long term (current) use of aspirin; D64.9 Anemia, unspecified; Z91.19 Patient's noncompliance with other medical treatment and regimen; J44.9 Chronic obstructive pulmonary disease, unspecified
CPT/HCPCS: 36415; 36416; 71045; 80048; 80053; 81003; 82553; 83690; 84484; 85025; 86850; 86900; 86901; 93005; 96361; 96374; 96375; 96376; J1815; J1940; J2001; Q4081

== ENCOUNTER 2018-03-17 02:23 | Inpatient (IN) | payer MEDICARE, MEDICAID ==
[2018-03-17 03:14] LABS: ALT (SGPT) 24 U/L (8-55); AST (SGOT) 29 U/L (5-34); Albumin 3.7 g/dL (3.4-4.8); Alkaline Phosphatase 50 U/L (40-150); Anion Gap 17 mmol/L (10-20); BUN (Urea Nitrogen) 63 mg/dL (8.4-25.7); Bilirubin, Total 0.3 mg/dL (0.2-1.2); Calc. Creatinine Clearance 0 mL/min (70-130); Calcium 10.9 mg/dL (7.8-10.44); Carbon Dioxide 15 mmol/L (23-31); Chloride 110 mmol/L (98-107); Estimated GFR-MDRD 18; Globulin 3.6 g/dL (2.4-3.5); Glucose 123 mg/dL (83-110); Lipase 73 U/L (8-78); Protein, Total 7.3 g/dL (5.8-8.1); Sodium 136 mmol/L (136-145)
[2018-03-17 03:19] LABS: CKMB 1.4 ng/mL (0-6.6); Troponin I Less than 0.010 ng/mL (< 0.028)
[2018-03-17 03:20] LABS: Hemoglobin 5.9 g/dL (14.0-18.0); Mean Corpuscular HGB CONC 31.2 g/dL (32.0-36.0); Mean Corpuscular Hemoglobin 25.4 pg (27.0-31.0); Mean Corpuscular Volume 81.3 fL (78.0-98.0); Mean Platelet Volume 7.7 fL (7.4-10.4); Platelet Count 393 thou/uL (130-400); RBC Distribution Width 15.5 % (11.5-14.5); Red Blood Cell (RBC) Count 2.32 mill/uL (4.70-6.10); White Blood Cell (WBC) Count 3.5 thou/uL (4.8-10.8)
[2018-03-17] MEDS ORDERED: Dextrose 50% Abboject 50 ML SYRINGE ONE (03:28)
[2018-03-17] MEDS ORDERED: Sodium Bicarbonate 2.5 MEQ/5 ML VIAL ONE (03:28)
[2018-03-17] MEDS ORDERED: Insulin Regular 300 UNITS/3 ML VIAL ONE (03:28)
[2018-03-17] MEDS ORDERED: Calcium Gluc 4.6 MEQ/10 ML (100 MG/ML) ONE ×3 (03:28→03:33)
[2018-03-17] MEDS ORDERED: Calcium Chloride 1 GM/10 ML Abboject SYRINGE ONE (03:33)
[2018-03-17] MEDS ORDERED: Sodium Bicarb 50 MEQ/50 ML Abboject 8.4% SYRINGE ONE (03:33)
[2018-03-17 03:36] LABS: #Eosinphils 0.1 thou/uL (0.0-0.7); #Monocytes 0.1 thou/uL (0.11-0.59); #Neutrophils 2.3 thou/uL (1.40-6.50); %Basophils 0.7 % (0.0-1.0); %Eosinophils 1.5 % (0.0-10.0); %Lymphocytes 29.6 % (21.0-51.0); %Monocytes 1.7 % (0.0-10.0); %Neutrophils 66.5 % (42.0-75.0); Anisocytosis SLIGHT = 6-15 cells (100X) (0-5/hpf); Elliptocytes SLIGHT = 2-5 cells (100X) (0-1/hpf); Hypochromia SLIGHT = 6-15 cells (100X) (0-5/hpf); MDiff Complete? YES
[2018-03-17] MEDS: Sodium Chloride 0.9% 1,000 ML IV SCH ×3 (06:02→19:14)
[2018-03-17 06:17] LABS: Troponin I 0.052 ng/mL (< 0.028)
[2018-03-17 06:26] LABS: Anion Gap 15 mmol/L (10-20); BUN (Urea Nitrogen) 62 mg/dL (8.4-25.7); Calc. Creatinine Clearance 0 mL/min (70-130); Calcium 11.5 mg/dL (7.8-10.44); Carbon Dioxide 17 mmol/L (23-31); Chloride 111 mmol/L (98-107); Estimated GFR-MDRD 18; Glucose 106 mg/dL (83-110); Potassium 5.1 mmol/L (3.5-5.1); Sodium 138 mmol/L (136-145)
[2018-03-17] MEDS: Acetaminophen 325 MG TAB PO PRN ×3 (06:29→16:06)
--- NOTE | 2018-03-17 08:29 | RAD ---
CHEST 1 VIEW: Date: 03/17/18 INDICATION: History of weakness. COMPARISON: Prior exam dated 02/09/18. FINDINGS: There is stable moderate right pleural effusion. COPD change and cardiomegaly is stable. The patchy o pacity seen within the left lower lobe is stable. Osseous structures are unchanged. IMPRESSION: Stable exam. POS: [facility]
[2018-03-17 08:37] LABS: Troponin I 0.212 ng/mL (< 0.028)
[2018-03-17] MEDS: Furosemide 20 MG TAB PO SCH (12:10)
[2018-03-17] MEDS: Carvedilol 6.25 MG TAB PO SCH ×2 (16:24→22:39)
[2018-03-17] MEDS: Amlodipine 5 MG TAB PO SCH (16:24)
[2018-03-17] MEDS: Multivit, Therapeutic 1 TAB PO SCH (16:25)
[2018-03-17] MEDS: hydrALAZINE 25 MG TAB PO SCH ×2 (16:25→22:40)
[2018-03-17] MEDS ORDERED: Pantoprazole 40 MG VIAL IVP SCH ×2 (18:30→21:00)
--- NOTE | 2018-03-17 19:32 | CT ---
CT ABDOMEN WITHOUT CONTRAST CT PELVIS WITHOUT CONTRAST 03/17/18 COMPARISON: 11/26/17 HISTORY: Pain. FINDINGS: CT ABDOMEN: Atherosclerosis of a nonaneurysmal aorta. Heart size is within normal limits. No significant pericar dial fluid. There is a moderate right sided pleural effusion with right lower lobe consolidation due to atelectasis or pneumonia. Redemonstration of a spiculated mass in the left lower lobe measuring 1 .6 cm in maximum dimension, unchanged. Limited evaluation of the solid organs by the lack of IV contrast. There is evidence of free air and free fluid in the abdomen. Possible sludge is going through the lumen of the gallbladder. Grossly, th e solid organs are unremarkable. There is bilateral renal cortical thinning. No evidence of obstructive uropathy. Limited evaluation o f the alimentary canal due to the lack of oral contrast. Gastric mucosa appears to be unremarkable. D uodenum and proximal to mid small bowel loops appear to be grossly unremarkable. There appears to be fluid and mucosal thickening involving small bowel loops in the right lower quadrant likely represent ing the ileum. Limited evaluation of the ileocecal junction. Grossly, the right hemicolon is unremark able. There is a significant amount of fluid and air adjacent to the splenic flexure which may be pos itional. Dehiscence of the colonic wall/lack of integrity of the colon cannot be excluded in this reg ion. There are diverticula in the sigmoid colon. No definite diverticulitis. There is fluid tracking along both pericolic gutters. PELVIC CT: Limited evaluation due to beam attenuation artifact from left hip prosthesis. Urinary bladder is unre markable. Prostate glands is unremarkable. No lytic or blastic lesions in the osseous structures. The re is extensive atherosclerosis throughout the aorta, as well as the aortic bifurcation, iliac arteri es, as well as the abdominal vasculature. IMPRESSION: Pneumoperitoneum which is presumed to be due to an ischemic process either with the distal small therese l loops or possibly the splenic flexure of the colon. Results of the study discussed with patient's nurse, Pao, 6:21 p.m. on 03/17/18. Code CR POS: [facility]
[2018-03-17] MEDS ORDERED: Morphine 2 MG/ML SYRINGE SLOW IVP PRN (19:33)
[2018-03-17] MEDS ORDERED: Atorvastatin Calcium 20 MG TAB PO SCH (21:00)
[2018-03-17] MEDS ORDERED: Temazepam 15 MG CAP PO SCH (21:00)
[2018-03-17] MEDS ORDERED: traZODone HCl 50 MG TAB PO SCH (21:00)
[2018-03-17] MEDS: Morphine 2 MG/ML SYRINGE SLOW IVP PRN ×2 (21:14→23:37)
--- NOTE | 2018-03-17 21:16 | CON ---
DATE OF CONSULTATION: 03/17/2018 REASON FOR CONSULTATION: Free air. HISTORY: Mr. Russell is an 88-year-old man with multiple medical problems who presented to the emergency room last night with a 3-day history of worsening weakness. According to his , he was in his normal state of health prior to this, ambulating short distances in the home using his walker and able to make his own decisions. Over the past few days; however, he has grown weaker and weaker and has not wanted to eat or move around and has gotten to the point where he has been unable to get out of his bed, so they brought him to the emergency room. He was found to have hyperkalemia and worsening renal failure, diffuse abdominal tenderness and tachycardia with marginal blood pressure. He was admitted to the telemetry service and transfused 2 units of red blood cells for severe anemia with a hemoglobin of 5.9. The patient continues to be in pain , especially with movement and states that it hurts all over. He is unable to tell me exactly when the pain started, but it has been hurting since before he came to the hospital. After admission, he underwent a noncontrast CT of the abdomen and pelvis which showed a large amount of free air in the abdomen. He also has a right pleural effusion with atelectasis of the right lower lobe. There is some free fluid in the abdomen and mostly in the pelvis and around the splenic flexure, but with fluid tracking along both pericolic gutters. He was noted to have some thickening of the terminal ileum, but the rest of the bowel loops appeared grossly normal except for diverticula in the sigmoid colon. He has known history of peptic ulcer disease and anemia presumed to be due to this. On his last EGD, he had a small gastric ulcer near the angularis. He has not been taking his medications regularly at home except for his cholesterol pill and his blood pressure pill. He has been off of his Protonix for some time. PAST MEDICAL HISTORY: He has a history of three-vessel coronary artery disease , he was not felt to be a surgical candidate and cannot even be on aspirin due to recurrent GI bleeds and anemia. He has severe heart failure with an ejection fraction of 20%, severe atherosclerotic disease of the aorta, mesenteric vessels, and peripheral vascular disease. He has chronic renal insufficiency, usually grade 3, although his creatinine is acutely elevated during this hospitalization. 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 PAST SURGICAL HISTORY: Some orthopedic procedures, but no abdominal surgeries. OUTPATIENT MEDICATIONS: By report, he was only taking his amlodipine and simvastatin at home, although he is also supposed to be on Coreg, Lasix, and Protonix. He has not been taking those. INPATIENT MEDICATIONS: Include amlodipine, atorvastatin, Coreg, Lasix, Protonix , temazepam, trazodone, multivitamin, and IV fluids. REVIEW OF SYSTEMS: Ten system review of systems is negative except per HPI. He has not had any nausea or vomiting. He has not been eating much, does not remember when his last bowel movement was, but does not have any changes in his bowel habits. Denies dysuria or hematuria, fevers, or chills. He denies shortness of breath or chest pain. PHYSICAL EXAMINATION: VITAL SIGNS: Patient is afebrile, heart rate is 89, respirations 16, 97% saturating on room air, blood pressure 108/49 which is low for him looking at past values. He usually runs in the 140s to 170s systolic. GENERAL: Reveals a very frail elderly man in no acute distress except with movement for abdominal examination. He is not flushed or toxic. He is not diaphoretic. He is not jaundiced or icteric. HEENT: Unremarkable. He has poor dentition. He has an EJ IV in place, no lymphadenopathy or thyroid nodules. HEART: Regular in its rate and rhythm with a systolic murmur. LUNGS: Clear to auscultation anteriorly with fair air movement. ABDOMEN: Distended, tympanitic and diffusely tender. He does not exhibit rigidity, but he does have some voluntary guarding and some rebound tenderness. EXTREMITIES: Warm but without good palpable pulses, no edema. NEUROLOGIC: No focal deficits. PSYCHIATRIC: Alert and oriented, expresses understanding of the situation and information discussed. His expresses that he is able to make his own decisions and seems to be mentating normally when he talks to her. ASSESSMENT: Free air of unclear etiology. He appears to have had abdominal pain for over 24 hours which favors a perforated ulcer since he is not frankly septic, although he is relatively hypotensive, his white count is low, both of which are poor prognostic signs. This is a very difficult situation in this very frail, elderly man with multiple medical comorbidities and poor prognosis regardless of treatment. Options include aggressive surgical management, attempted medical management with NG decompression and antibiotics and comfort care with hospice. If he elects for aggressive surgical management, he would require general anesthesia and at least a laparoscopic washout and repair. If he was found to have a small bowel or colon injury, he would require resection and likely an ostomy. With his 3-vessel coronary artery disease and heart failure, he may or may not tolerate general surgery. I do not think he would extubate immediately postoperatively and he may require prolonged ventilation support. His renal function is already poor and he may require dialysis if this worsens. Even if he tolerates the surgery, the recovery will be difficult in this minimally mobile elderly man and I anticipate he would be discharged to a long-term rather than to his home. If he elects for attempted medical management with NG decompression and IV fluids and antibiotics and proton pump inhibitors, this may or may not be successful and it would be dependent on the source of the free air as well as his ability to heal. If his condition worsens , then surgery could be considered, although again, he would be unlikely to tolerate this well. If he decides on comfort care and hospice, he will need to accept that this is a fatal event. His has tried to get hold of their children but their son is not picking up the phone and has not yet returned her call; however, she plans to defer to her in terms of his wishes. Initially, he told his nurse that he did not want surgery and that he "would rather " but when I came back in to discuss the situation with him, he said that he wanted to know what was the cause of the perforation and whether it was cancer and I explained to him that it could not really be determined without surgery. At this point, he is still undecided and he and his are going to discuss his options and try to come to a decision. I did express that if he decides to proceed with surgery, we would do that immediately but given the magnitude of the decision and the difficulty of weighing these very difficult and limited options, I encouraged him to take his time to think things over before making a decision. I will revisit with them later tonight to see what they have decided. ADDENDUM: I returned a third time to discuss treatment options. The patient declined surgery but wasn't sure whether he wanted medical management or hospice. His refused to make this decision on his behalf. They declined Romanian english as a second language teacher, stating they understood what was discussed. I discussed with Dr. Ford and we decided to start broad spectrum antibiotics , with NG decompression if the patient agreed to this. Prognosis very poor. MTDD
[2018-03-17] MEDS: Piperacillin/Tazobactam 3.375 GM in Sodium Chloride 0.9% 100 ML IVPB SCH (23:37)
[2018-03-18] MEDS: Acetaminophen 1,000 MG in Premix Bag 1 BAG IVPB SCH ×3 (00:30→12:13)
--- NOTE | 2018-03-18 00:54 | CON ---
DATE OF CONSULTATION: 03/17/2018 CONSULTING PHYSICIAN: ER physician. REASON FOR CONSULTATION: Acute kidney injury, hyperkalemia and anemia. REASON FOR ADMISSION: Weakness. HISTORY OF PRESENT ILLNESS: This is an 88-year-old male with history of hypertension, hyper lipidemia, CKD, coronary artery disease, peripheral vascular disease, who came to the hospital with a erinn complaints. He was found to have elevated anemia of 5.9 and creatinine of 3.3 from baseline of 2.05. Potassium was 6.0, improved to 5.5. No chest pain or palpitation. The patient is very lethargic. No nausea, vomiting, diarrhea reported. No fever, chills or rash. PAST MEDICAL HISTORY: Positive for hypertension, hyperlipidemia, CKD, coronary artery disease, perip heral vascular disease, CHF. PAST SURGICAL HISTORY: None. HOME MEDICATIONS: Hydralazine, temazepam, sodium bicarbonate, Zocor, Protonix, multivitamin, magnesi um, Niferex, Coreg, aspirin, amlodipine. ALLERGIES: No known drug allergies. SOCIAL HISTORY: No smoking, alcohol, or illicit drug abuse. FAMILY HISTORY: No history of any kidney disease. REVIEW OF SYSTEMS: The following complete review of systems was negative, unless otherwise mentioned in the HPI or below: Constitutional: Weight loss or gain, ability to conduct usual activities. Sk in: Rash, itching. Eyes: Double vision, pain. ENT/Mouth: Nose bleeding, neck stiffness, pain, te nderness. Cardiovascular: Palpitations, dyspnea on exertion, orthopnea. Respiratory: Shortness of breath, wheezing, cough, hemoptysis, fever or night sweats. Gastrointestinal: Poor appetite, abdom inal pain, heartburn, nausea, vomiting, constipation, or diarrhea. Genitourinary: Urgency, frequenc y, dysuria, nocturia. Musculoskeletal: Pain, swelling. Neurologic/Psychiatric: Anxiety, depressio n. Allergy/Immunologic: Skin rash, bleeding tendency. PHYSICAL EXAMINATION: GENERAL: This is a thin-built male, in no apparent distress. VITAL SIGNS: Temperature 97.6, pulse 89, respiratory rate 16, blood pressure 118/49. HEENT: Atraumatic, normocephalic. Oral mucosa is moist. NECK: Supple, no masses. CARDIOVASCULAR: S1, S2 heard. Rate and rhythm regular. RESPIRATORY: Clear. GASTROINTESTINAL: Abdomen is soft. MUSCULOSKELETAL: 1+ edema. DERMATOLOGIC: No skin rash. NEUROLOGIC: Alert and awake. PSYCHIATRIC: Mood and affect normal. LABORATORY DATA: Hemoglobin is 5.9. Potassium is 5.1. BUN is 62, creatinine is 3.3. ASSESSMENT AND PLAN: 1. Acute kidney injury most likely volume depletion. Agree with hydration. 2. Hyperkalemia, better. 3. Metabolic acidosis. Monitor. 4. Edema, controlled. 5. Anemia, rule out any bleed and monitor. Avoid nephrotoxins. We will follow. Thank you for the consult.
[2018-03-18] MEDS: Sodium Chloride 0.9% 1,000 ML IV SCH (01:53)
--- NOTE | 2018-03-18 02:40 | CON ---
DATE OF CONSULTATION: 03/17/2018 REASON FOR CONSULTATION: Drop in hemoglobin, prior history of ulcers. HISTORY OF PRESENT ILLNESS: Mr. Russell is a very pleasant 88-year-old male known to me from previo us evaluations back in 2017, large duodenal ulcer with visible vessel and clot. He had to be transfu sed for no signs of H. pylori at that time subsequently into of 18. He had upper and lower endoscopi es with some gastritis and duodenitis, but no overt bleeding. He had a colonoscopy the next day, whi ch was normal except for diverticulosis in the right colon. In 10/2017, he returned to this hospital drop in hemoglobin and suspected bleeding and had a small ulcer at the angularis of the stomach, mil d oozing. This was cauterized and bleeding stopped. He supposed to be on PPIs, but it seems he is n ot taking those, talking to his . He just takes a cholesterol medicine and blood pressure medici ne and aspirin his medications here with him. Emergency room physician is noted that there are some questions with compliance of medicine as well. He was last in this hospital 02/16/2018 from with hyperkalemia, acute kidney injury, uncontrolled hypertension. He has noticed potassium 6.8, when he presented at that time, which was treated. He went home on simvastatin, hydralazine, m ultivitamin, Protonix, Coreg, amlodipine, Lasix, Restoril, trazodone, but does not seem he is taking that many pills at least according to the , but again it is unclear what he is taking. REVIEW OF SYSTEMS: The patient complains of epigastric pain. He has not been eating well last day o r two, although it was very difficult to get that history as well as I have tested at 8 this morning, but did not yesterday. He does not have any fever or chills. The patient denies any radiation of p ain to the back to the lower abdomen. Emergency room notes he presented with complaints of vomiting, but his notes he has not had any vomiting today. She notes his stools are brown "a normal colo r," they denied black stools or bloody stools, hematemesis, coffee-ground emesis. 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 There has been no plans for intervention or treatment of this. PAST SURGICAL HISTORY: Notable for the above endoscopies, left hemiarthroplasty, left femoral cathet er in the past, thoracentesis in the past. SOCIAL HISTORY: Previous smoker, does not drink. ALLERGIES: None known. HOME MEDICATIONS: As above. PRESENT MEDICATIONS HERE IN THE HOSPITAL: Amlodipine, atorvastatin, carvedilol, furosemide, hydralaz ine, multivitamin, Protonix 40 IV once a day. PHYSICAL EXAMINATION: GENERAL: The patient is frail, elderly gentleman resting in bed. He is in no distress. He is very hard of hearing. VITAL SIGNS: Temperature 97.6, pulse is 89, blood pressure 108/49. HEENT: Oropharynx without lesions. LUNGS: Clear. HEART: Regular rate and rhythm without clicks or murmurs. ABDOMEN: Soft. There is slight protuberant. There is mild tenderness in the epigastrium. No rebou nd or guarding. EXTREMITIES: No clubbing, cyanosis, or edema. NEUROLOGIC: The patient is intact. LABORATORY STUDIES: White count 3.5, hemoglobin 5.9 and platelet count was 393. Initially, his whit e count was 6.6 on 02/13/2018. His hemoglobin is 7.3 on 02/13/2018. His INR was not checked. Sodiu m 138, potassium 5.1, BUN and creatinine are 62 and 3.3, which is at his baseline at 37 and 2.5 on , calcium 10.9. AST and ALT 29 and 25, alkaline phosphatase 50, protein 7.3, albumin 3.7, gl obulin slightly elevated at 3.6. Last iron was 178 on 11/04/2017. ASSESSMENT: The patient presented to the emergency room today with weakness, some epigastric pain. He was transfused 2 units of blood this morning at noon. I was called about 5:00 to about a co nsult. His last transfusions were in November. At that time, he was seen by GI and he refused endoscopy . Today, he is equivocal whether he wants to have an endoscopy. His states she does not think he is bleeding to explain to her that with his prior history of significant ulcers and lack of taking any proton pump inhibitor medications. It is very likely has recurrent ulcer with elevated BUN and creatinine and drop in hemoglobin abruptly. Presently, he is going for a CAT scan of his abdomen and pelvis ordered by the admitting physician Dr. Ford asked the nurse to keep him n.p.o. and will consider upper endoscopy tomorrow depending on findings and his response to transfusion. RECOMMENDATIONS: 1. N.p.o. after midnight. 2. Await CAT scan. 3. Consider endoscopy tomorrow. 4. IV Protonix q.12 hours. 5. Stop oral Protonix, n.p.o.
[2018-03-18] MEDS: Morphine 2 MG/ML SYRINGE SLOW IVP PRN ×3 (03:34→12:22)
[2018-03-18 05:29] LABS: ALT (SGPT) 19 U/L (8-55); AST (SGOT) 46 U/L (5-34); Albumin 3.2 g/dL (3.4-4.8); Alkaline Phosphatase 39 U/L (40-150); Anion Gap 19 mmol/L (10-20); BUN (Urea Nitrogen) 78 mg/dL (8.4-25.7); Bilirubin, Total 1.1 mg/dL (0.2-1.2); Calc. Creatinine Clearance 11 mL/min (70-130); Calcium 11.1 mg/dL (7.8-10.44); Carbon Dioxide 11 mmol/L (23-31); Chloride 113 mmol/L (98-107); Estimated GFR-MDRD 15; Globulin 3.4 g/dL (2.4-3.5); Glucose 85 mg/dL (83-110); Potassium 8.4 mmol/L (3.5-5.1); Protein, Total 6.6 g/dL (5.8-8.1); Sodium 135 mmol/L (136-145)
[2018-03-18 05:46] LABS: Band 54 % (5-11); Differential Comment Immature Cell(s); Hemoglobin 11.4 g/dL (14.0-18.0); Lymphocytes 23 % (21-51); MDiff Complete? YES; Mean Corpuscular HGB CONC 30.5 g/dL (32.0-36.0); Mean Corpuscular Hemoglobin 26.4 pg (27.0-31.0); Mean Corpuscular Volume 86.5 fL (78.0-98.0); Mean Platelet Volume 8.2 fL (7.4-10.4); Metamyelocyte 4 % (0-0); Myelocyte 1 % (0-0); Neutrophil 17 % (42-75); PLT Morphology Comment Appears Adequate; Platelet Count 319 thou/uL (130-400); RBC Distribution Width 15.7 % (11.5-14.5); Reflex for Review?? YES; White Blood Cell (WBC) Count 4.5 thou/uL (4.8-10.8)
[2018-03-18] MEDS: Piperacillin/Tazobactam 3.375 GM in Sodium Chloride 0.9% 100 ML IVPB SCH ×2 (06:06→12:21)
[2018-03-18 07:44] LABS: Potassium 8.3 mmol/L (3.5-5.1)
--- NOTE | 2018-03-18 07:59 | HP ---
DATE OF ADMISSION: 03/17/2018 REASON FOR ADMISSION AND CHIEF COMPLAINT: Weakness. HISTORY OF PRESENT ILLNESS: Mr. Russell is an 88-year-old male with past medical history of coronary artery disease, triple vessel was not operable and CHF with a decreased ejection fraction of 20% and lung nodule possible malignant, came with weakness. The patient has been in the hospital several times for acute kidney injury and severe anemia and workup was done. The patient's family states he ate well until last night when he started complaining of abdominal pain last night around 11:00 p.m. and feeling weak. states he has become progressively weak over one day, unable to ambulate, he needed to be carried everywhere. He also had one episode of vomiting, no hematemesis. The states he is very noncompliant with his medications, so patient was brought to the emergency room. He does not have any nausea or vomiting now. No chest pain, no shortness of breath, no fever. In the ER, the patient was evaluated and found to be severely anemic with hemoglobin of 5.9 and also hyperkalemia and acute kidney injury. The patient received IV fluid bolus as well as sodium bicarbonate, calcium chloride and regular insulin for hyperkalemia and I believe 2 units of packed red blood cells and admitted for further evaluation and management. Currently, patient still has abdominal pain , he is more awake now. After admission to telemetry, he was found to be hypotensive and started on transfusion after which his blood pressure improved. PAST MEDICAL HISTORY: 1. Chronic kidney disease, stage 3. 2. Hypertension. 3. Coronary artery disease, triple vessel, not a candidate for surgery. 4. History of CHF with decrease LV function with ejection fraction of 20%. 5. Left upper lung pulmonary nodule, possibly malignant. The patient declined any workup. 6. Right pleural effusion, chronic. 7. Reactive airway disease. PAST SURGICAL HISTORY: Nothing significant. CURRENT MEDICATIONS: The patient is on hydralazine 50 b.i.d., temazepam 15 mg at bedtime, Zocor 40 mg daily, Protonix 40 mg daily, multivitamin daily, Niferex 150 daily, Lasix 20 mg daily, Coreg 12.5 b.i.d., aspirin 81 mg daily, amlodipine 5 mg daily, Tylenol p.r.n. ALLERGIES: No known drug allergies. FAMILY HISTORY: Nothing of interest. SOCIAL HISTORY: Lives at home with family, quit smoking recently. REVIEW OF SYSTEMS: Cardiovascular: No chest pain. No shortness of breath. Respiratory: No fever or cough. Gastrointestinal: Has vomited once, abdominal pain, but no diarrhea. No constipation. Central Nervous System: Feels dizzy, no headache. PHYSICAL EXAMINATION: GENERAL: The patient is alert, awake, oriented x3. VITAL SIGNS: Temperature 98, pulse 96, respirations 20, blood pressure 95/45. HEENT: Head is normocephalic, atraumatic. Pupils are equal and reactive to light. Nasopharynx is pale and dry. Hard and soft palate, no lesions seen. SKIN: Skin turgor decreased. NECK: Supple. No JVD. LUNGS: Breath sounds diminished bilaterally. Percussion not dull bilaterally. No rales, no rhonchi. HEART: S1, S2 regular. ABDOMEN: Diffusely tender, more in the epigastrium, mildly distended. Bowel sounds sluggish. EXTREMITIES: 1+ edema. CENTRAL NERVOUS SYSTEM: No focal deficit. LABORATORY AND X-RAY FINDINGS: CBC shows WBC 3.5, hemoglobin 5.9, hematocrit 18.9, platelets 393. Metabolic panel: Sodium 136, potassium 6, chloride 110, CO2 of 15, BUN 63, creatinine 3.3, glucose 123, CK-MB 1.4, troponin I less than 0.010. Chest x-ray, stable exam. EKG shows normal sinus rhythm, no acute ST-T wave changes seen. ASSESSMENT: 1. Acute abdomin 2. Severe anemia, symptomatic. 3. Acute kidney injury. 4. Hyperkalemia. 5. Coronary artery disease, triple vessel, nonoperable. 6. Congestive heart failure with decrease in left ventricular function with ejection fraction of 20%. 7. Left lung nodule, possibly malignant. 8. Hypertension. 9. Chronic kidney disease, stage 3. 10. Chronic anemia. PLAN: 1. Vital signs q.4 hours. 2. Activity: As tolerated. 3. Allergies: No known drug allergies. 4. IV fluids: Normal saline at 80 mL per hour. 5. Transfuse 2 units of packed red blood cells. 6. Diet: N.p.o. 7. Hold home medications. 8. Protonix 40 IV piggyback q.[address] of the abdomen. 10. GI consult. [facility]
[2018-03-18] MEDS ORDERED: Calcium Gluc 4.6 MEQ/10 ML (100 MG/ML) SLOW IVP SCH (08:00)
[2018-03-18] MEDS ORDERED: Dextrose 50% Abboject 50 ML SYRINGE SLOW IVP SCH (08:00)
[2018-03-18] MEDS ORDERED: Insulin Regular 300 UNITS/3 ML VIAL IVP SCH (08:00)
[2018-03-18] MEDS ORDERED: Sodium Bicarbonate 150 MEQ, Admixture Fee 1 EACH in Dextrose 5% in Water 1,000 ML IV SCH (08:15)
[2018-03-18] MEDS ORDERED: Sodium Bicarb 50 MEQ/50 ML Abboject 8.4% SYRINGE IVP SCH (08:15)
[2018-03-18] MEDS ORDERED: Pantoprazole 40 MG VIAL IVP SCH (09:00)
[2018-03-18] MEDS: Amlodipine 5 MG TAB PO SCH (11:43)
[2018-03-18] MEDS: Carvedilol 6.25 MG TAB PO SCH (11:43)
[2018-03-18] MEDS: Furosemide 20 MG TAB PO SCH (11:44)
[2018-03-18] MEDS: hydrALAZINE 25 MG TAB PO SCH (11:44)
[2018-03-18] MEDS: Multivit, Therapeutic 1 TAB PO SCH (11:46)
[2018-03-18 12:32] VITALS: BP 107/46; TEMP 96.2
--- NOTE | 2018-03-18 15:35 | EKG ---
Test Reason : Blood Pressure : / mmHG Vent. Rate : 088 BPM Atrial Rate : 088 BPM P-R Int : 284 ms QRS Dur : 116 ms QT Int : 324 ms P-R-T Axes : -04 049 231 degrees QTc Int : 392 ms Sinus rhythm with 1st degree A-V block Non-specific intra-ventricular conduction delay Abnormal ECG Confirmed by DANNI RENEE ([id number]) on 03/18/2018 3:35:35 PM Referred By: KEENA Confirmed By:DANNI RENEE
--- NOTE | 2018-03-18 16:45 | PDOC.GSPN ---
Surgery Progress Note: Subj - Subjective Narrative: Patiet has significantly declined overnight. We were able to reach his daughter and she is at the bedside with the patient's . He is no longer responsive are answering questions. He has received pain medication as needed and appears to be comfortable at rest. His renal failure has worsened and his potassium is quite high. He has received medical management for this but his shell press operator does not feel that he would tolerate dialysis and I agree with this assessment. I explained the situation and the patient's expressed wishes to the patient's daughter and she and her mother are in agreement that the priority is to keep him comfortable. They understand that he is likely to soon. They do not wish him to receive chest compressions or shocks or intubation. Palliative care has been consulted. Surgery Progress Note: Obj - Vital signs Vital signs: Vital Signs - Most Recent Temp Pulse Resp BP Pulse Ox 96.2 F L 87 18 107/46 L 97 03/18/18 12:30 03/18/18 12:30 03/18/18 12:30 03/18/18 12:30 03/18/18 12:30 Surgery Progress Note: Results - Labs Result Diagrams: 03/18/18 04:38 03/18/18 07:16 Lab results: Laboratory Results - last 24 hr 03/18/18 03/18/18 03/18/18 03:11 04:38 04:38 WBC 4.5 L RBC 4.30 L Hgb 11.4 L Hct 37.2 L MCV 86.5 MCH 26.4 L MCHC 30.5 L RDW 15.7 H Plt Count 319 MPV 8.2 Neutrophils % (Manual) 17 L Band Neuts % (Manual) 54 H Lymphocytes % (Manual) 23 Metamyelocytes % (Man) 4 H Myelocytes % 1 H Differential Comment Immature Cell(s) Other Cell Type 1 Plt Morphology Comment Appears Adequate Smear Path Review Sodium 135 L Potassium 8.4 H* Chloride 113 H Carbon Dioxide 11 L Anion Gap 19 BUN 78 H Creatinine 3.83 H Estimated GFR (MDRD) 15 Glucose 85 POC Glucose 133 H Calcium 11.1 H Total Bilirubin 1.1 AST 46 H ALT 19 Alkaline Phosphatase 39 L Serum Total Protein 6.6 Albumin 3.2 L Globulin 3.4 Albumin/Globulin Ratio 0.9 L 03/18/18 07:16 WBC RBC Hgb Hct MCV MCH MCHC RDW Plt Count MPV Neutrophils % (Manual) Band Neuts % (Manual) Lymphocytes % (Manual) Metamyelocytes % (Man) Myelocytes % Differential Comment Other Cell Type Plt Morphology Comment Smear Path Review Sodium Potassium 8.3 H* Chloride Carbon Dioxide Anion Gap BUN Creatinine Estimated GFR (MDRD) Glucose POC Glucose Calcium Total Bilirubin AST ALT Alkaline Phosphatase Serum Total Protein Albumin Globulin Albumin/Globulin Ratio
--- NOTE | 2018-03-18 18:16 | PRG ---
DATE OF SERVICE: 03/18/2018 SUBJECTIVE: Patient was seen and examined at bedside and overnight events noted. Patient denies any shortness of breath or chest pain or palpitation. No history of nausea or vomitin g or diarrhea or fever or chills or cramps. The patient is somnolent and nonverbal. OBJECTIVE: GENERAL: This is an elderly male, who is not responding very well this morning. VITAL SIGNS: Temperature 96.2, pulse 87, respiratory rate 18, blood pressure 107/46. HEENT: Atraumatic, normocephalic. Oral mucosa is moist. NECK: Supple. CARDIOVASCULAR: S1 and S2 heard. Rate and rhythm regular. RESPIRATORY: Clear to auscultation. GASTROINTESTINAL: Abdomen is soft. MUSCULOSKELETAL: No tenderness. No edema. DERMATOLOGIC: No skin rash. NEUROLOGIC: Somnolent. PSYCHIATRIC: Mood and affect normal. LABORATORY DATA: Hemoglobin is 11.4, potassium 8.4, bicarbonate is 11, BUN 78, creatinine is 3.8. ASSESSMENT AND PLAN: 1. Acute kidney injury on chronic kidney stage IV with worsening and hyperkalemia. The patient appa rently was found to have bowel perforation and does not wish to have any aggressive measures and woul d like to have comfort measures. 2. Hyperkalemia. The patient and family does not wish to have dialysis and the patient is not in go od shape to have dialysis. Family is aware and plan is to have hospice care. 3. Metabolic acidosis. 4. Edema. 5. Anemia, most likely from bleed and bowel perforation. Plan is to have a hospice per family. I will sign off. Please call back with any questions.
== END 2018-03-18 18:03 | disposition hospice, inpatient (51) | DRG 394 ==
LOC: ERS 02:23 → 2NO 03:28
PROVIDERS: ADMIT Internal Medicine; ATTEND Internal Medicine
DX: K63.1 Perforation of intestine (nontraumatic) (principal); I13.0 Hypertensive heart and chronic kidney disease with heart failure and stage 1 through stage 4 chronic kidney disease, or unspecified chronic kidney disease; N17.9 Acute kidney failure, unspecified; N18.4 Chronic kidney disease, stage 4 (severe); E87.2 Acidosis; I50.9 Heart failure, unspecified; I25.10 Atherosclerotic heart disease of native coronary artery without angina pectoris; E87.5 Hyperkalemia; E78.5 Hyperlipidemia, unspecified; I73.9 Peripheral vascular disease, unspecified; D63.1 Anemia in chronic kidney disease; R91.1 Solitary pulmonary nodule
CPT/HCPCS: 36415; 36416; 36430; 71045; 74176; 80053; 82553; 83690; 84484; 85025; 85060; 86850; 86900; 86901; 93005; 93010; C9113; J0131; J1815; J2270; J2543; J7050; J7070; P9016